=== PATIENT | male | born 1950 | race Caucasian/White ===

== ENCOUNTER → 2017-02-07 | Outpatient (CLI) | payer OTHER ==
[~2017-02-07] MED LIST: ACET-1256 PO; AMLO-110 PO; FAMO20TA11 PO; IBUP-1050 PO; LPR25 PO; LVQ750 PO; TAMS0.4C38 PO; ZCR20 PO
[2017-02-07 12:26] LABS: ALT/SGPT 32 U/L (12-78); BLOOD UREA NITROGEN 18 mg/dl (7-18); BUN/CREATININE RATIO 13.9 (10-20); CALCIUM 9.1 mg/dl (8.5-10.1); CARBON DIOXIDE 27 mmol/L (21-32); CHLORIDE 105 mmol/L (98-107); CHOLESTEROL 130 mg/dl (0-200); GLUCOSE 97 mg/dl (70-99); POTASSIUM 3.8 mmol/L (3.5-5.1); SODIUM 140 mmol/L (136-145); TRIGLYCERIDES 108 mg/dl (0-150); VERY LOW DENSITY LIPOPROT CALC 22 mg/dl
[2017-02-07 12:30] LABS: ALB/GLOB RATIO 1.1 (0.9-2); ALKALINE PHOSPHATASE 87 U/L (45-117); AST/SGOT 27 U/L (15-37); CHOLESTEROL/HDL RATIO 3.4; HDL CHOLESTEROL 38 mg/dl; LDL CHOLESTEROL CALCULATED 70 mg/dl
--- NOTE | 2017-02-18 11:25 | CODING QUERY MEDICAL NECESSITY ---
CQSUPPORTING DIAGNOSIS NEEDED A supporting diagnosis is required for the test/procedure performed on this patient in order for us to be reimbursed by the patient's insurance. Please provide a supporting diagnosis for the following test/procedure listed below next to the test name along with your signature. *If there is no additional diagnosis for this patient that would support the following test/procedure please document that below next to the test/procedure. Test(s)/Procedure(s) that require a supporting diagnosis: DOS 02/07/17 VITAMIN B12 TEST Provider Signature: Date: Thank you Paulette Valdes Health Information Management Once completed, please kindly fax back to [phone] For questions please call [phone]
== END | disposition home or self-care (01) ==
LOC: C.LAB 10:03
PROVIDERS: ATTEND Internal Medicine
DX: E78.5 Hyperlipidemia, unspecified (principal); F48.2 Pseudobulbar affect; N40.1 Benign prostatic hyperplasia with lower urinary tract symptoms

== ENCOUNTER 2018-10-02 09:11 | Inpatient (IN) ==
[2018-10-02] MEDS ORDERED: CEFEPIME 2,000 MG/12.5 ML VIAL IV STA (09:33)
--- NOTE | 2018-10-02 11:46 | Ultrasound Report ---
US venous doppler LE LT CLINICAL HISTORY: LLE swelling, ulceration, erythema COMPARISON STUDY: No previous studies for comparison. FINDINGS: Real-time and color flow Doppler imaging were performed. Flow was seen within the femoral, popliteal and calf veins with no intraluminal thrombus demonstrated. The saphenous vein is patent. Th e study was difficult from a technical standpoint as the patient was unable to cooperate with optimal positioning. The posterior tibial vein was not visualized. IMPRESSION: No evidence of left lower extremity DVT. Electronically signed by: Luke Contreras M.D. 10/02/2018 11:44 AM
[2018-10-02 12:26] LABS: Basophils # (auto) 0.03 K/uL (0-0.2); Basophils % (auto) 0.2 %; Eosinophils # (auto) 0.27 K/uL (0-0.5); Eosinophils % (auto) 1.4 %; Hematocrit (blood only) 41.6 % (42-52); Hemoglobin 14.6 g/dL (14.0-18.0); Immature Granulocytes # (auto) 0.06 K/uL (0.00-0.02); Immature Granulocytes % (auto) 0.3 %; Lymphocytes # (auto) 1.06 K/uL (1.2-3.4); Lymphocytes % (auto) 5.6 %; Mean Corpuscular Hgb Conc 35.1 g/dL (32-36); Mean Corpuscular Volume 93.3 fL (80-100); Mean Platelet Volume 10.9 fL (7.4-10.4); Monocytes # (auto) 0.95 K/uL (0.11-0.59); Neutrophils # (auto) 16.61 K/uL (1.4-6.5); Neutrophils % (auto) 87.5 %; Platelet Count 223 K/uL (130-400); RDW Coefficient of Variation 13.4 % (11.5-14.5); RDW Standard Deviation 45.6 fL (36.4-46.3); Red Blood Count 4.46 M/uL (4.7-6.1); White Blood Count 18.98 K/uL (4.8-10.8)
[2018-10-02 12:42] LABS: BUN Creatinine Ratio 26.1 (10-20); Calcium 9.6 mg/dl (8.5-10.1); Creatinine Clr Calc Pharmacy 92.8 ml/min; Est GFR (African American) 93.2; Est GFR (Non-African American) 80.5; Potassium 3.9 mmol/L (3.5-5.1)
[2018-10-02 12:45] LABS: Albumin Globulin Ratio 0.7 (0.9-2); Bilirubin,Total 0.4 mg/dl (0.2-1); Globulin 4.4 gm/dl (2.5-4.0); Total Protein 7.4 gm/dl (6.4-8.2)
--- NOTE | 2018-10-02 13:33 | History & Physical Report ---
Date of Service October 02, 2018 Assessment & Plan (1) Cellulitis: Failure of outpt abx management (clindamycin, augmentin) Cefepime in the ED, will continue Blood cx pending, may need to expand coverage if not improved by tomorrow LE US neg for DVT Elevated WBC Hx of SIRS several years ago with cellulitis, however VSS and WBC is not as elevated as would be expected in SIRS Lactic acid WNL Monitor for now [facility] pending Torsemide was helping as outpt, will dose lasix 20mg IV x1 and monitor, repeat if needed May need further eval for arterial insufficiency (2) HTN (hypertension): continue home meds (3) Aneurysm: Hold on rx DVT proph given hx of hemhorragic CVA (4) BPH (benign prostatic hyperplasia): continue home meds (5) Elevated blood sugar: Monitor States has had mild elevations around 103-105 fasting, but no dx of DM (6) DVT prophylaxis: Ambulation Holding rx DVT proph as above History of Present Illness Primary Care Provider: Kirk Stein MD 67 y/o M c/o b/l LE pain, redness, and swelling. Pt states this started in July and was gradually worsening until he saw his PCP in early September. He was dx with cellulitis and started on clindamycin TID. He was also started on torsemide temporarily for LE swelling and fluid drainage from the wounds. He states that the swelling and drainage improved quickly. He lost about 7 lbs during that time. The redness did improve somewhat, but not much. He was later placed on augmentin. He finished abx and torsemide about 2 days ago and has had an increase in b/l LE pain, redness, and swelling with drainage since that time. He also notes a burning sensation to b/l LE. PCP had set up an appt with [facility], but the earliest available was 10/06. Pt states he had LE cellulitis about 5 years ago and ultimately ended up with SIRS. He states he does not feel like that at this time, and other than his LE complaints, he feels fine. Pt denies fever, SOB, chest pain, abd pain, n/v/c/d. He has been tolerating PO without i ssue. Seizure was listed on pt's PMH, however he denies hx of seizures or use of seizure medications Allergies Allergy/AdvReac Type Severity Reaction Status Date / Time No Known Allergies Allergy Unknown Verified 10/02/18 10:06 Home Medications Home Medications Medication Instructions Recorded Confirmed Type acetaminophen [Tylenol Extra 500 mg PO BID 10/02/18 10/02/18 History Strength] amlodipine 5 mg PO QAM 10/02/18 10/02/18 History amoxicillin-pot clavulanate 1 tab PO BIDM 10/02/18 10/02/18 History clindamycin HCl 300 mg PO TID 10/02/18 10/02/18 History finasteride 5 mg PO HS 10/02/18 10/02/18 History ibuprofen 200 mg PO BID 10/02/18 10/02/18 History metoprolol tartrate 25 mg PO BID 10/02/18 10/02/18 History simvastatin 20 mg PO HS 10/02/18 10/02/18 History tamsulosin 0.4 mg PO QAM 10/02/18 10/02/18 History torsemide 20 mg PO UD 10/02/18 10/02/18 History Past Med/Surg History Medical History HTN, goal to be determined Leukocytosis Family History Father , Cause of was never determined, possibly [place] No problems noted. Social History Preferred Language: Upper Sorbian Communication Ability: Effective Beliefs That Will Affect Care: None Current Living Situation: Spouse Other Information That Helps Us Care for You: No Feels Safe at Home: Yes Safety Concerns: Feels Safe At This Time Smoking Status: Never smoker Hx Alcohol Use: No Hx Substance Use: No Review of Systems Review of Systems: Pertinent positives and negatives reviewed in HPI--all others negative Physical Exam Constitutional: WD/WN, vitals as above Eyes: normal visual vásquez by confrontation and + anicteric sclerae Neck: normal visual inspection and trachea midline Respiratory: normal respiratory effort, lungs clear to auscultation Cardiovascular: Rate/Rhythm: regular rate and regular rhythm Gastrointestinal (Abdomen): Inspection/Auscultation: abdomen not distended Percussion/Palpation: abdomen soft; abdomen nontender Musculoskeletal: Head/Neck/Chest: normocephalic and head atraumatic b/l LE edema with weeping ulcerations, peripheral pulses intact Skin: redness to around infrapatellar region, marker placed by myself in the ED Warm to touch Several regions of ulcerations noted Neurologic: awake; not confused Speech / Cognition: normal speech Psychiatric: A+Ox3, euthymic affect Results & Data Vital Signs (Past 12 Hours) Vital Signs Temp Pulse Pulse Resp BP BP Pulse Ox 10/02/18 11:30 78 18 142/79 H 98 10/02/18 09:14 36.8 C 70 18 139/81 97 Diagnostic Findings b/l LE US neg for DVT Code Status & VTE Plan Code Status Full code per pt VTE Prophylaxis Plan VTE Prophylaxis will be ordered: Yes
--- NOTE | 2018-10-02 14:42 | Emergency Department Note ---
Entered by Gallo Yee acting as a scribe for History of Present Illness General Chief complaint: Leg Injury/Pain Stated complaint: LEG AND FOOT PAIN Source: patient Mode of arrival: ambulatory History of Present Illness Provider complaint: Leg Injury/Pain Onset (ago): day(s) 1 Location: lower extremity Pain Consistency: + constant Maximum Pain Intensity: 6 Current Pain Intensity: 6 Associated symptoms: no fever/chills Patient is a 67 year old male who presents himself to the ER with complaint of leg swelling, redness and drainage that has been an issue for sometime, but worsening yesterday. Patient states he was tx with a course of antibiotics and referred to the wound care clinic. Today he felt that it was needed to come to the ER to get his leg examined. He rates his constant pain at a value of 6 on the pain intensity scale. Patient denies fevers and chills. Home Medications Home Medications Medication Instructions Recorded Confirmed Type acetaminophen [Tylenol Extra 500 mg PO BID 10/02/18 10/02/18 History Strength] amlodipine 5 mg PO QAM 10/02/18 10/02/18 History amoxicillin-pot clavulanate 1 tab PO BIDM 10/02/18 10/02/18 History clindamycin HCl 300 mg PO TID 10/02/18 10/02/18 History finasteride 5 mg PO HS 10/02/18 10/02/18 History ibuprofen 200 mg PO BID 10/02/18 10/02/18 History metoprolol tartrate 25 mg PO BID 10/02/18 10/02/18 History simvastatin 20 mg PO HS 10/02/18 10/02/18 History tamsulosin 0.4 mg PO QAM 10/02/18 10/02/18 History torsemide 20 mg PO UD 10/02/18 10/02/18 History Allergies Allergy/AdvReac Type Severity Reaction Status Date / Time No Known Allergies Allergy Unknown Verified 10/02/18 10:06 Past Med/Surg History Medical History HTN, goal to be determined Leukocytosis Social History Preferred Language: Pashto Communication Ability: Effective Beliefs That Will Affect Care: None Current Living Situation: Spouse Other Information That Helps Us Care for You: No Feels Safe at Home: Yes Safety Concerns: Feels Safe At This Time Smoking Status: Never smoker Hx Alcohol Use: No Hx Substance Use: No Review of Systems See HPI for pertinent positives & negatives. and A total of 10 systems reviewed and were otherwise negative Physical Exam Vital Signs Vital Signs - 24 hr 10/04/18 21:00 10/04/18 23:00 10/05/18 07:45 Temperature 37 C 36.8 C Temperature Source Oral Oral Pulse Rate [Left] 83 75 Pulse Rate [Right Brachial] Pulse Rate [Right Finger] 69 Respiratory Rate 20 18 Blood Pressure [Right Arm] 155/82 H 130/81 149/87 H Blood Pressure Mean [Right Arm] 106 97 107 Blood Pressure Position [Right Arm] Lying Sitting Pulse Oximetry 93 94 Oxygen Delivery Method Room Air Room Air 10/05/18 15:00 Temperature 36.8 C Temperature Source Oral Pulse Rate [Left] Pulse Rate [Right Brachial] 73 Pulse Rate [Right Finger] Respiratory Rate 18 Blood Pressure [Right Arm] 149/81 H Blood Pressure Mean [Right Arm] 103 Blood Pressure Position [Right Arm] Sitting Pulse Oximetry 97 Oxygen Delivery Method Room Air Vital signs reviewed. General: Well-appearing 67 year old male, in no significant distress. HEENT: No scleral icterus, PERRLA, neck supple. Atraumatic. Cardiovascular: Regular rate and rhythm, no extra sounds. Pulmonary: Clear to auscultation bilaterally, normal work of breathing. Abdomen: Soft, nontender, nondistended, positive bowel sounds. Musculoskeletal: Atraumatic, significant peripheral edema. Neurologic: Patient awake alert and oriented x 3 Skin: Warm, dry, Erythema left greater than right lower extremity, debris in the ulcerations of the lower extremities, extensive erythema through left foot, warm to touch, bilateral legs are seeping, serous fluid. Course 09: Past medical records reviewed. The patient was evaluated in room B04B. A complete history and physical examination was performed. 1250: I went to update the patient that they will be admitted to Dr[facility]. Patient has verbalized agreement of the treatment plan. Consultations Consultation #1: Dr[facility] Time: 12:50 Administered Medications Acetaminophen (Tylenol) 500 mg PO BID NEGAR Stop: 11/01/18 20:59 Last Admin: 10/05/18 09:07 Dose: 500 mg Documented by: [id number] Admin: 10/04/18 20:39 Dose: 500 mg Documented by: [id number] Admin: 10/04/18 07:48 Dose: 500 mg Documented by: [id number] Admin: 10/03/18 21:08 Dose: 500 mg Documented by: [id number] Admin: 10/03/18 08:00 Dose: 500 mg Documented by: [id number] Admin: 10/02/18 20:05 Dose: 500 mg Documented by: [id number] Acetaminophen (Tylenol) 650 mg PO Q4H PRN PRN Reason: pain/fever Stop: 11/01/18 15:11 Last Admin: 10/04/18 16:20 Dose: 650 mg Documented by: [id number] Admin: 10/03/18 06:03 Dose: 650 mg Documented by: [id number] Admin: 10/03/18 01:54 Dose: 650 mg Documented by: [id number] Admin: 10/02/18 22:01 Dose: 650 mg Documented by: [id number] Admin: 10/02/18 16:31 Dose: 650 mg Documented by: [id number] [facility] [place]: 11/02/18 08:59 Last Admin: 10/05/18 09:02 Dose: 5 mg Documented by: [id number] Admin: 10/04/18 07:47 Dose: 5 mg Documented by: [id number] Admin: 10/03/18 08:00 Dose: 5 mg Documented by: [id number] Finasteride (Proscar) 5 mg PO HS [facility] Stop: 11/01/18 20:59 Last Admin: 10/04/18 20:41 Dose: 5 mg Documented by: [id number] Admin: 10/03/18 21:08 Dose: 5 mg Documented by: [id number] Admin: 10/02/18 20:06 Dose: 5 mg Documented by: [id number] Cefepime HCl 2,000 mg/ Syringe 20 mls @ 5.5 mls/min IV Q12H NEGAR; Protocol Stop: 10/12/18 21:59 Last Admin: 10/05/18 09:07 Dose: 5.5 mls/min Documented by: [id number] Admin: 10/04/18 22:13 Dose: 5.5 mls/min Documented by: [id number] Admin: 10/04/18 11:03 Dose: 5.5 mls/min Documented by: [id number] Admin: 10/03/18 22:19 Dose: 5.5 mls/min Documented by: [id number] Admin: 10/03/18 10:12 Dose: 5.5 mls/min Documented by: [id number] Admin: 10/02/18 22:01 Dose: 5.5 mls/min Documented by: [id number] Ibuprofen (Advil) 200 mg PO BID NEGAR Stop: 11/01/18 20:59 Last Admin: 10/05/18 09:02 Dose: 200 mg Documented by: [id number] Admin: 10/04/18 20:41 Dose: 200 mg Documented by: [id number] Admin: 10/04/18 07:46 Dose: 200 mg Documented by: [id number] Admin: 10/03/18 21:07 Dose: 200 mg Documented by: [id number] Admin: 10/03/18 07:58 Dose: 200 mg Documented by: [id number] Admin: 10/02/18 20:06 Dose: 200 mg Documented by: [id number] Lactobacillus Acidophilus (Floranex) 4 tab PO TIDM NEGAR Stop: 11/01/18 16:59 Last Admin: 10/05/18 16:55 Dose: 4 tab Documented by: [id number] Admin: 10/05/18 11:47 Dose: 4 tab Documented by: [id number] Admin: 10/05/18 07:56 Dose: 4 tab Documented by: [id number] Admin: 10/04/18 17:21 Dose: 4 tab Documented by: [id number] Admin: 10/04/18 12:24 Dose: 4 tab Documented by: [id number] Admin: 10/04/18 07:46 Dose: 4 tab Documented by: [id number] Admin: 10/03/18 16:21 Dose: 4 tab Documented by: [id number] Admin: 10/03/18 12:25 Dose: 4 tab Documented by: [id number] Admin: 10/03/18 07:59 Dose: 4 tab Documented by: [id number] Admin: 10/02/18 17:13 Dose: 4 tab Documented by: [id number] Metoprolol Tartrate (Lopressor) 25 mg PO BID NEGAR Stop: 11/01/18 20:59 Last Admin: 10/05/18 09:02 Dose: 25 mg Documented by: [id number] Admin: 10/04/18 20:40 Dose: 25 mg Documented by: [id number] Admin: 10/04/18 07:47 Dose: 25 mg Documented by: [id number] Admin: 10/03/18 21:08 Dose: 25 mg Documented by: [id number] Admin: 10/03/18 07:58 Dose: 25 mg Documented by: [id number] Admin: 10/02/18 20:07 Dose: 25 mg Documented by: [id number] Simvastatin (Zocor) 20 mg PO HS NEGAR Stop: 11/01/18 20:59 Last Admin: 10/04/18 20:40 Dose: 20 mg Documented by: [id number] Admin: 10/03/18 21:07 Dose: 20 mg Documented by: [id number] Admin: 10/02/18 20:05 Dose: 20 mg Documented by: [id number] Tamsulosin HCl [facility]omax) [facility] [place]: 11/02/18 08:59 Last Admin: 10/05/18 09:01 Dose: 0.4 mg Documented by: [id number] Admin: 10/04/18 07:47 Dose: 0.4 mg Documented by: [id number] Admin: 10/03/18 07:59 Dose: 0.4 mg Documented by: [id number] [facility] ([facility]adex) [facility] [place] Stop: 11/04/18 11:59 Last Admin: 10/05/18 12:46 Dose: 20 mg Documented by: [id number] Tramadol HCl (Ultram) 50 mg PO Q4H PRN PRN Reason: Pain Stop: 11/02/18 10:38 Last Admin: 10/05/18 11:46 Dose: 50 mg Documented by: [id number] Admin: 10/04/18 22:20 Dose: 50 mg Documented by: [id number] Admin: 10/04/18 11:04 Dose: 50 mg Documented by: [id number] Admin: 10/03/18 20:20 Dose: 50 mg Documented by: [id number] Discontinued Medications Cefepime HCl (Maxipime) 2,000 mg in 12.5 mls @ 3.125 mls/min IV NOW STA Stop: 10/02/18 09:36 Last Admin: 10/02/18 10:32 Dose: 3.125 mls/min Documented by: [id number] Furosemide 20 mg/ Syringe 2 mls @ 4 mls/min IV ONE ONE Stop: 10/02/18 15:31 Last Admin: 10/02/18 16:11 Dose: 4 mls/min Documented by: [id number] Tramadol HCl (Ultram) 50 mg PO NOW STA Stop: 10/03/18 10:41 Last Admin: 10/03/18 10:57 Dose: 50 mg Documented by: [id number] Medical Decision Making Differential Diagnosis Differential diagnosis: Etiologies such as cellulitis, abscess, osteomyelitis, MRSA infection, DVT, necrotizing fasciitis, dermatitis, drug eruption, as well as others were entertained. Medical Records Attestation: I reviewed the patient's medical records. Home Medications Current Medication List: was personally reviewed by me Laboratory Data Attestation: I reviewed the patient's lab results. Result diagrams: 10/05/18 05:56 10/05/18 05:56 Lab Results 10/02/18 10/02/18 10/02/18 Range/Units 10:15 12:17 12:17 WBC 18.98 H (4.8-10.8) K/uL RBC 4.46 L (4.7-6.1) M/uL Hgb 14.6 (14.0-18.0) g/dL Hct 41.6 L (42-52) % MCV 93.3 (80-100) fL MCH 32.7 (25-34) pg MCHC 35.1 (32-36) g/dL RDW Std Deviation 45.6 (36.4-46.3) fL RDW Coeff of Mesfin 13.4 (11.5-14.5) % Plt Count 223 (130-400) K/uL MPV 10.9 H (7.4-10.4) fL Immature Gran % (Auto) 0.3 % Neut % (Auto) 87.5 % Lymph % (Auto) 5.6 % Borden % (Auto) 5.0 % Eos % (Auto) 1.4 % Baso % (Auto) 0.2 % Immature Gran # (Auto) 0.06 H (0.00-0.02) K/uL Neut # (Auto) 16.61 H (1.4-6.5) K/uL Lymph # (Auto) 1.06 L (1.2-3.4) K/uL Borden # (Auto) 0.95 H (0.11-0.59) K/uL Eos # (Auto) 0.27 (0-0.5) K/uL Baso # (Auto) 0.03 (0-0.2) K/uL Sodium 140 (136-145) mmol/L Potassium 3.9 (3.5-5.1) mmol/L Chloride 108 H (98-107) mmol/L Carbon Dioxide 26 (21-32) mmol/L Anion Gap 6.0 (3-11) BUN 25 H (7-18) mg/dl Creatinine 0.97 (0.6-1.4) mg/dl Est Cr Clr Drug Dosing 92.8 ml/min Est GFR ( Amer) 93.2 Est GFR (Non-Af Amer) 80.5 BUN/Creatinine Ratio 26.1 H (10-20) Glucose 115 H (70-99) mg/dl POC Glucose (70-99) Lactate 1.3 (0.4-2.0) mmol/L Calcium 9.6 (8.5-10.1) mg/dl Phosphorus (2.5-4.9) mg/dl Magnesium (1.8-2.4) mg/dl Total Bilirubin 0.4 (0.2-1) mg/dl AST 32 (15-37) U/L ALT 67 (12-78) U/L Alkaline Phosphatase 91 (45-117) U/L Total Protein 7.4 (6.4-8.2) gm/dl Albumin 3.0 L (3.4-5.0) gm/dl Globulin 4.4 H (2.5-4.0) gm/dl Albumin/Globulin Ratio 0.7 L (0.9-2) Specimen Hemolysis 10/03/18 10/03/18 10/04/18 Range/Units 05:22 05:22 19:58 WBC 11.48 H (4.8-10.8) K/uL RBC 4.31 L (4.7-6.1) M/uL Hgb 13.9 L (14.0-18.0) g/dL Hct 39.9 L (42-52) % MCV 92.6 (80-100) fL MCH 32.3 (25-34) pg MCHC 34.8 (32-36) g/dL RDW Std Deviation 44.8 (36.4-46.3) fL RDW Coeff of Mesfin 13.2 (11.5-14.5) % Plt Count 221 (130-400) K/uL MPV 11.2 H (7.4-10.4) fL Immature Gran % (Auto) 0.2 % Neut % (Auto) 79.0 % Lymph % (Auto) 11.9 % Borden % (Auto) 7.6 % Eos % (Auto) 1.1 % Baso % (Auto) 0.2 % Immature Gran # (Auto) 0.02 (0.00-0.02) K/uL Neut # (Auto) 9.07 H (1.4-6.5) K/uL Lymph # (Auto) 1.37 (1.2-3.4) K/uL Borden # (Auto) 0.87 H (0.11-0.59) K/uL Eos # (Auto) 0.13 (0-0.5) K/uL Baso # (Auto) 0.02 (0-0.2) K/uL Sodium (136-145) mmol/L Potassium (3.5-5.1) mmol/L Chloride (98-107) mmol/L Carbon Dioxide (21-32) mmol/L Anion Gap (3-11) BUN (7-18) mg/dl Creatinine (0.6-1.4) mg/dl Est Cr Clr Drug Dosing ml/min Est GFR ( Amer) Est GFR (Non-Af Amer) BUN/Creatinine Ratio (10-20) Glucose (70-99) mg/dl POC Glucose 116 H (70-99) Lactate (0.4-2.0) mmol/L Calcium (8.5-10.1) mg/dl Phosphorus 2.7 (2.5-4.9) mg/dl Magnesium 1.9 (1.8-2.4) mg/dl Total Bilirubin (0.2-1) mg/dl AST (15-37) U/L ALT (12-78) U/L Alkaline Phosphatase (45-117) U/L Total Protein (6.4-8.2) gm/dl Albumin (3.4-5.0) gm/dl Globulin (2.5-4.0) gm/dl Albumin/Globulin Ratio (0.9-2) Specimen Hemolysis 10/05/18 10/05/18 Range/Units 05:56 05:56 WBC 10.19 (4.8-10.8) K/uL RBC 4.44 L (4.7-6.1) M/uL Hgb 14.5 (14.0-18.0) g/dL Hct 41.2 L (42-52) % MCV 92.8 (80-100) fL MCH 32.7 (25-34) pg MCHC 35.2 (32-36) g/dL RDW Std Deviation 44.6 (36.4-46.3) fL RDW Coeff of Mesfin 13.1 (11.5-14.5) % Plt Count 252 (130-400) K/uL MPV 10.8 H (7.4-10.4) fL Immature Gran % (Auto) % Neut % (Auto) % Lymph % (Auto) % Borden % (Auto) % Eos % (Auto) % Baso % (Auto) % Immature Gran # (Auto) (0.00-0.02) K/uL Neut # (Auto) (1.4-6.5) K/uL Lymph # (Auto) (1.2-3.4) K/uL Borden # (Auto) (0.11-0.59) K/uL Eos # (Auto) (0-0.5) K/uL Baso # (Auto) (0-0.2) K/uL Sodium 132 L (136-145) mmol/L Potassium 4.2 (3.5-5.1) mmol/L Chloride 103 (98-107) mmol/L Carbon Dioxide 23 (21-32) mmol/L Anion Gap 6.0 (3-11) BUN 35 H (7-18) mg/dl Creatinine 1.03 (0.6-1.4) mg/dl Est Cr Clr Drug Dosing 87.4 ml/min Est GFR ( Amer) 86.7 Est GFR (Non-Af Amer) 74.8 BUN/Creatinine Ratio 34.0 H (10-20) Glucose 102 H (70-99) mg/dl POC Glucose (70-99) Lactate (0.4-2.0) mmol/L Calcium 9.3 (8.5-10.1) mg/dl Phosphorus (2.5-4.9) mg/dl Magnesium (1.8-2.4) mg/dl Total Bilirubin (0.2-1) mg/dl AST (15-37) U/L ALT (12-78) U/L Alkaline Phosphatase (45-117) U/L Total Protein (6.4-8.2) gm/dl Albumin (3.4-5.0) gm/dl Globulin (2.5-4.0) gm/dl Albumin/Globulin Ratio (0.9-2) Specimen Hemolysis Imaging Data Attestation: I personally reviewed and interpreted this imaging study as follows: Radiologist's Impression: Radiology results as stated below per my review and the radiologist's interpretation: US venous doppler LE LT CLINICAL HISTORY: LLE swelling, ulceration, erythema COMPARISON STUDY: No previous studies for comparison. FINDINGS: Real-time and color flow Doppler imaging were performed. Flow was seen within the femoral, popliteal and calf veins with no intraluminal thrombus demonstrated. The saphenous vein is patent. The study was difficult from a technical standpoint as the patient was unable to cooperate with optimal positioning. The posterior tibial vein was not visualized. IMPRESSION: No evidence of left lower extremity DVT. Electronically signed by: Luke Contreras M.D. 10/02/2018 11:44 AM Dictated: 10/02/18 1143 Transcribed: 10/02/18 1143 Blood Pressure Blood Pressure Findings: Elevated blood pressure Blood Pressure Disposition: further management by hospitalist MDM Narrative This pt was evaluated and appeared to be in no distress. IV access was obtained and lab work was drawn. Pt was placed on the food runner. US LLE is negative for DVT. Pt was given cefepime IV for pseudomonas coverage. Nursing was asked to cleanse the wounds. Pt was d/w the hospitalist service for inpt tx of LLE cellulitis. Pt and were made aware of the plan and agree. Impression & Plan Cellulitis of left leg, Dependent edema Discharge Plan Visit Data *Final* Discharge Date/Time: 10/02/18 14:39 Chief Complaint: Leg Injury/Pain Stated Complaint: LEG AND FOOT PAIN ED Provider: Karon Ruffin Discharge Problem: Cellulitis of left leg, Dependent edema Patient Disposition: Admitted As Inpatient Discharge Instructions Interventions: ED Discharge Assessment Last Done: 10/02/18 14:39 The scribe's documentation has been prepared under my direction and personally reviewed by me in its entirety. I confirm that the note above accurately reflects all work, treatment, procedures, and medical decision making performed by me.
[2018-10-02] MEDS ORDERED: MAGNESIUM HYDROXIDE SUSP 30 ML UDC PO PRN (15:12)
[2018-10-02] MEDS ORDERED: NON-FORMULARY MEDICATION (Torsemide 20 MG) PO SCH (15:12)
[2018-10-02] MEDS ORDERED: ONDANSETRON INJ 2 MG/ML 2 ML VIAL IV PRN (15:12)
[2018-10-02] MEDS ORDERED: FUROSEMIDE 20 MG in SYRINGE 0 ML IV ONE (15:30)
[2018-10-02] MEDS: ACETAMINOPHEN 325 MG TAB PO PRN ×2 (16:31→22:01)
[2018-10-02] MEDS: LACTOBACILLUS ACIDOPHILUS (FLORANEX) TAB PO SCH (17:13)
[2018-10-02] MEDS: SIMVASTATIN 20 MG TAB PO SCH (20:05)
[2018-10-02] MEDS: ACETAMINOPHEN 500 MG TAB PO SCH (20:05)
[2018-10-02] MEDS: FINASTERIDE 5 MG TAB PO SCH (20:06)
[2018-10-02] MEDS: IBUPROFEN 200 MG TAB PO SCH (20:06)
[2018-10-02] MEDS: METOPROLOL TARTRATE 25 MG TAB PO SCH (20:07)
[2018-10-02] MEDS: CEFEPIME 2,000 MG in SYRINGE 7.5 ML IV SCH (22:01)
[2018-10-03] MEDS: ACETAMINOPHEN 325 MG TAB PO PRN ×2 (01:54→06:03)
[2018-10-03 05:54] LABS: Basophils # (auto) 0.02 K/uL (0-0.2); Basophils % (auto) 0.2 %; Eosinophils # (auto) 0.13 K/uL (0-0.5); Eosinophils % (auto) 1.1 %; Hematocrit (blood only) 39.9 % (42-52); Hemoglobin 13.9 g/dL (14.0-18.0); Immature Granulocytes # (auto) 0.02 K/uL (0.00-0.02); Immature Granulocytes % (auto) 0.2 %; Lymphocytes # (auto) 1.37 K/uL (1.2-3.4); Lymphocytes % (auto) 11.9 %; Mean Corpuscular Hgb Conc 34.8 g/dL (32-36); Mean Corpuscular Volume 92.6 fL (80-100); Mean Platelet Volume 11.2 fL (7.4-10.4); Monocytes # (auto) 0.87 K/uL (0.11-0.59); Monocytes % (auto) 7.6 %; Neutrophils # (auto) 9.07 K/uL (1.4-6.5); Platelet Count 221 K/uL (130-400); RDW Coefficient of Variation 13.2 % (11.5-14.5); RDW Standard Deviation 44.8 fL (36.4-46.3); Red Blood Count 4.31 M/uL (4.7-6.1); White Blood Count 11.48 K/uL (4.8-10.8)
[2018-10-03 06:29] LABS: Magnesium 1.9 mg/dl (1.8-2.4); Phosphorus 2.7 mg/dl (2.5-4.9)
[2018-10-03] MEDS: IBUPROFEN 200 MG TAB PO SCH ×2 (07:58→21:07)
[2018-10-03] MEDS: METOPROLOL TARTRATE 25 MG TAB PO SCH ×2 (07:58→21:08)
[2018-10-03] MEDS: LACTOBACILLUS ACIDOPHILUS (FLORANEX) TAB PO SCH ×3 (07:59→16:21)
[2018-10-03] MEDS: TAMSULOSIN HCL 0.4 MG CAP PO SCH (07:59)
[2018-10-03] MEDS: AMLODIPINE BESYLATE 5 MG TAB PO SCH (08:00)
[2018-10-03] MEDS: ACETAMINOPHEN 500 MG TAB PO SCH ×2 (08:00→21:08)
[2018-10-03] MEDS: CEFEPIME 2,000 MG in SYRINGE 7.5 ML IV SCH ×2 (10:12→22:19)
[2018-10-03] MEDS ORDERED: TRAMADOL HCL 50 MG TABLET PO STA (10:40)
[2018-10-03] MEDS: TRAMADOL HCL 50 MG TABLET PO PRN (20:20)
[2018-10-03] MEDS: SIMVASTATIN 20 MG TAB PO SCH (21:07)
[2018-10-03] MEDS: FINASTERIDE 5 MG TAB PO SCH (21:08)
--- NOTE | 2018-10-03 21:56 | Hospitalist Progress Note ---
Date of Service October 03, 2018 Assessment & Plan (1) Cellulitis: Failure of outpt abx management (clindamycin, augmentin) Cefepime in the ED, will continue Blood cx pending, As antibiotics appear to be working, will continue on current antibiotic regimen. LE US neg for DVT WBC remains elevated Hx of SIRS several years ago with cellulitis, however VSS and WBC is not as elevated as would be expected in SIRS Lactic acid WNL WCC pending Torsemide was helping as outpt, received lasix 20mg IV x1 and monitor. Will hold off repeat dose today. May need further eval for arterial insufficiency. ay consider this as an outpatient. (2) HTN (hypertension): continue home meds (3) Aneurysm: Hold on rx DVT proph given hx of hemhorragic CVA (4) BPH (benign prostatic hyperplasia): continue home meds (5) Elevated blood sugar: Monitor States has had mild elevations around 103-105 fasting, but no dx of DM. May consider workup as outpatient. (6) DVT prophylaxis: Ambulation Holding rx DVT proph as above Spent 25 minutes in management of patient. Subjective Patient reports no significant changes from yesterday. Patient continues to be having pain in his lower extremites, but reports that the pain is milder. Review of Systems Review of Systems: All systems reviewed & are unremarkable except as noted in HPI & below Physical Exam Physical Exam: Constitutional: WD/WN, vitals as above Eyes: normal visual vásquez by confrontation and + anicteric sclerae Neck: normal visual inspection and trachea midline Respiratory: normal respiratory effort, lungs clear to auscultation Cardiovascular: Rate/Rhythm: regular rate and regular rhythm Gastrointestinal (Abdomen): Inspection/Auscultation: abdomen not distended Percussion/Palpation: abdomen soft; abdomen nontender Musculoskeletal: Head/Neck/Chest: normocephalic and head atraumatic b/l LE edema with weeping ulcerations, peripheral pulses intact Skin: decreased redness noted today, marker placed by myself in the room Warm to touch Neurologic: awake; not confused Speech / Cognition: normal speech Psychiatric: A+Ox3, euthymic affect Results & Data Vital Signs (Past 12 Hours) Vital Signs Temp Pulse Resp BP Pulse Ox 10/03/18 21:02 111 H 145/89 H 10/03/18 15:02 36.7 C 75 20 151/83 H 96
[2018-10-04] MEDS: LACTOBACILLUS ACIDOPHILUS (FLORANEX) TAB PO SCH ×3 (07:46→17:21)
[2018-10-04] MEDS: IBUPROFEN 200 MG TAB PO SCH ×2 (07:46→20:41)
[2018-10-04] MEDS: METOPROLOL TARTRATE 25 MG TAB PO SCH ×2 (07:47→20:40)
[2018-10-04] MEDS: AMLODIPINE BESYLATE 5 MG TAB PO SCH (07:47)
[2018-10-04] MEDS: TAMSULOSIN HCL 0.4 MG CAP PO SCH (07:47)
[2018-10-04] MEDS: ACETAMINOPHEN 500 MG TAB PO SCH ×2 (07:48→20:39)
[2018-10-04] MEDS: CEFEPIME 2,000 MG in SYRINGE 7.5 ML IV SCH ×2 (11:03→22:13)
[2018-10-04] MEDS: TRAMADOL HCL 50 MG TABLET PO PRN ×2 (11:04→22:20)
[2018-10-04] MEDS: ACETAMINOPHEN 325 MG TAB PO PRN (16:20)
--- NOTE | 2018-10-04 17:58 | Hospitalist Progress Note ---
Date of Service October 04, 2018 Assessment & Plan (1) Cellulitis: Failure of outpt abx management (clindamycin, augmentin) Cefepime in the ED, will continue Blood cx preliminary negative As antibiotics appear to be working, will continue on current antibiotic regimen. LE US neg for DVT WBC remains elevated but improved from 18 to 11. Did not order CBC on 10/04. Will order in AM. Anticipate this to be normal Lactic acid WNL WCC pending: SHOWING 2 gram negative bacilli and M morganii. The sensitivities are pending on 2 gram negative bacilli. M morganii is sensitive to cephalosporin. Torsemide was helping as outpt, received lasix 20mg IV x1 and monitor. Will hold off repeat dose today. May need further eval for arterial insufficiency. may consider this as an outpatient. (2) HTN (hypertension): continue home meds (3) Aneurysm: Hold on rx DVT proph given hx of hemhorragic CVA (4) BPH (benign prostatic hyperplasia): continue home meds (5) Elevated blood sugar: Monitor States has had mild elevations around 103-105 fasting, but no dx of DM. May consider workup as outpatient. will order A1C in AM. (6) DVT prophylaxis: Ambulation Holding rx DVT proph as above Spent 25 minutes in management of patient. Subjective Patient was found ambulating the halls. Patient reports no significant pain. Patient reports that his legs continue to be swollen and his dressing get damp in the evening. Review of Systems Review of Systems: All systems reviewed & are unremarkable except as noted in HPI & below Physical Exam Physical Exam: Constitutional: WD/WN, vitals as above Eyes: normal visual vásquez by confrontation and + anicteric sclerae Neck: normal visual inspection and trachea midline Respiratory: normal respiratory effort, lungs clear to auscultation Cardiovascular: Rate/Rhythm: regular rate and regular rhythm Gastrointestinal (Abdomen): Inspection/Auscultation: abdomen not distended Percussion/Palpation: abdomen soft; abdomen nontender Musculoskeletal: Head/Neck/Chest: normocephalic and head atraumatic b/l LE edema with weeping ulcerations, peripheral pulses intact Skin: receding erythema noted, erythema was demarcated by marker. Warm to touch, mutiple superfical lesions noted on lower third of bilateral legs. Neurologic: awake; not confused Speech / Cognition: normal speech Psychiatric: A+Ox3, euthymic affect Results & Data Vital Signs (Past 12 Hours) Vital Signs Temp Pulse Resp BP Pulse Ox 10/04/18 15:05 36.5 C 74 18 158/83 H 97 10/04/18 07:19 37 C 75 18 128/76 96
[2018-10-04] MEDS: SIMVASTATIN 20 MG TAB PO SCH (20:40)
[2018-10-04] MEDS: FINASTERIDE 5 MG TAB PO SCH (20:41)
[2018-10-05 06:35] LABS: Hematocrit (blood only) 41.2 % (42-52); Hemoglobin 14.5 g/dL (14.0-18.0); Mean Corpuscular Hgb Conc 35.2 g/dL (32-36); Mean Corpuscular Volume 92.8 fL (80-100); Mean Platelet Volume 10.8 fL (7.4-10.4); Platelet Count 252 K/uL (130-400); RDW Coefficient of Variation 13.1 % (11.5-14.5); RDW Standard Deviation 44.6 fL (36.4-46.3); Red Blood Count 4.44 M/uL (4.7-6.1); White Blood Count 10.19 K/uL (4.8-10.8)
[2018-10-05 07:24] LABS: Calcium 9.3 mg/dl (8.5-10.1); Creatinine Clr Calc Pharmacy 87.4 ml/min; Est GFR (African American) 86.7; Est GFR (Non-African American) 74.8; Potassium 4.2 mmol/L (3.5-5.1)
[2018-10-05] MEDS: LACTOBACILLUS ACIDOPHILUS (FLORANEX) TAB PO SCH ×3 (07:56→16:55)
[2018-10-05] MEDS: TAMSULOSIN HCL 0.4 MG CAP PO SCH (09:01)
[2018-10-05] MEDS: AMLODIPINE BESYLATE 5 MG TAB PO SCH (09:02)
[2018-10-05] MEDS: IBUPROFEN 200 MG TAB PO SCH ×2 (09:02→20:07)
[2018-10-05] MEDS: METOPROLOL TARTRATE 25 MG TAB PO SCH ×2 (09:02→20:05)
[2018-10-05] MEDS: CEFEPIME 2,000 MG in SYRINGE 7.5 ML IV SCH ×2 (09:07→22:16)
[2018-10-05] MEDS: ACETAMINOPHEN 500 MG TAB PO SCH ×2 (09:07→20:06)
[2018-10-05] MEDS: TRAMADOL HCL 50 MG TABLET PO PRN ×2 (11:46→21:06)
--- NOTE | 2018-10-05 11:50 | Hospitalist Progress Note ---
Date of Service October 05, 2018 Assessment & Plan (1) Cellulitis: Failure of outpt abx management (clindamycin, augmentin) Cefepime in the ED, will continue Blood cx preliminary negative As antibiotics appear to be working, will continue on current antibiotic regimen. LE US neg for DVT WBC remains elevated but improved from 18 to 11. Did not order CBC on 10/04. Will order in AM. Anticipate this to be normal Lactic acid WNL WCC pending: SHOWING 2 gram negative bacilli and M morganii. The sensitivities are pending on 2 gram negative bacilli. M morganii is sensitive to cephalosporin. Torsemide was helping as outpt, received lasix 20mg IV x1 and monitor. Resumed torsemide on 10/05 May need further eval for arterial insufficiency. may consider this as an outpatient. (2) HTN (hypertension): continue home meds. B/P is above gaol. Will monitor, may improve with diuretic. (3) Aneurysm: Hold on rx DVT proph given hx of hemhorragic CVA (4) BPH (benign prostatic hyperplasia): continue home meds (5) Elevated blood sugar: Monitor States has had mild elevations around 103-105 fasting, but no dx of DM. May consider workup as outpatient. Awaiting A1C. (6) DVT prophylaxis: Ambulation Holding rx DVT proph as above Spent 35 minutes in management of patient. Was present during dressing changes. Subjective Patient reports no new complaints today. Continues to have swelling and mild to moderate pain in his lower extremities. He states that he has been taking tramadol Review of Systems Review of Systems: All systems reviewed & are unremarkable except as noted in HPI & below Physical Exam Physical Exam: Constitutional: WD/WN, vitals as above Eyes: normal visual vásquez by confrontation and + anicteric sclerae Neck: normal visual inspection and trachea midline Respiratory: normal respiratory effort, lungs clear to auscultation Cardiovascular: Rate/Rhythm: regular rate and regular rhythm Gastrointestinal (Abdomen): Inspection/Auscultation: abdomen not distended Percussion/Palpation: abdomen soft; abdomen nontender Musculoskeletal: Head/Neck/Chest: normocephalic and head atraumatic b/l LE edema with weeping ulcerations, peripheral pulses intact Skin: receding erythema noted, erythema was demarcated by marker. Usd blue marker on (10/05) Warm to touch, mutiple superfical lesions noted on lower third of bilateral legs. Neurologic: awake; not confused Speech / Cognition: normal speech Psychiatric: A+Ox3, euthymic affect Results & Data Vital Signs (Past 12 Hours) Vital Signs Temp Pulse Resp BP Pulse Ox 10/05/18 07:45 36.8 C 69 18 149/87 H 94
[2018-10-05] MEDS: TORSEMIDE 10 MG TAB PO SCH (12:46)
[2018-10-05] MEDS: SIMVASTATIN 20 MG TAB PO SCH (20:06)
[2018-10-05] MEDS: FINASTERIDE 5 MG TAB PO SCH (20:08)
[2018-10-05] MEDS: ACETAMINOPHEN 325 MG TAB PO PRN (22:40)
[2018-10-06 06:09] LABS: Estimated Average Glucose 140 mg/dl; Hemoglobin A1C 6.5 % (4.5-5.6)
[2018-10-06] MEDS: METOPROLOL TARTRATE 25 MG TAB PO SCH ×2 (08:17→21:51)
[2018-10-06] MEDS: AMLODIPINE BESYLATE 5 MG TAB PO SCH (08:17)
[2018-10-06] MEDS: TAMSULOSIN HCL 0.4 MG CAP PO SCH (08:18)
[2018-10-06] MEDS: ACETAMINOPHEN 500 MG TAB PO SCH ×2 (08:18→21:50)
[2018-10-06] MEDS: LACTOBACILLUS ACIDOPHILUS (FLORANEX) TAB PO SCH ×3 (08:18→16:43)
[2018-10-06] MEDS: IBUPROFEN 200 MG TAB PO SCH ×2 (08:18→21:53)
[2018-10-06] MEDS: TORSEMIDE 10 MG TAB PO SCH (08:18)
[2018-10-06] MEDS: ACETAMINOPHEN 325 MG TAB PO PRN ×2 (10:39→16:42)
[2018-10-06] MEDS: CEFEPIME 2,000 MG in SYRINGE 7.5 ML IV SCH (10:49)
--- NOTE | 2018-10-06 15:19 | Hospitalist Progress Note ---
Date of Service October 06, 2018 Assessment & Plan (1) Cellulitis: Failed outpt abx management (clindamycin, augmentin). Some concern for LLE DVT, but ultrasound (Doppler) was negative on 10/02. - Was on cefepime since admission. - Switched to Bactrim on 10/06 for superficial wound cultures - Monitor site; if still improving by tomorrow, consider discharge with outpatient follow up of legs. (2) HTN (hypertension): BP has been 120/80 to 150/90. - Continue home meds. (3) Aneurysm: Hold on rx DVT proph given hx of hemhorragic CVA (4) BPH (benign prostatic hyperplasia): No complaints of LUTS presently. - Continue home meds (5) Elevated blood sugar: A1c is 6.5%, making him diabetic. He states he has had mild elevations around 103-105 fasting, but no dx of DM. - Consider workup as outpatient. (6) DVT prophylaxis: Ambulation Holding rx DVT proph as above Subjective Feels he is doing better this morning. Leg is less red. Blistering has stopped. Drainage from wounds is still present and active. Reports no fevers/chills, chest pain, shortness of breath, abdominal pain, nausea, or vomiting. Review of Systems Integumentary: + lesions Physical Exam Constitutional: WD/WN, vitals as above Eyes: normal visual vásquez by confrontation and + anicteric sclerae Neck: normal visual inspection and trachea midline Respiratory: normal respiratory effort, lungs clear to auscultation Cardiovascular: Rate/Rhythm: regular rate and regular rhythm Gastrointestinal (Abdomen): Inspection/Auscultation: abdomen not distended Percussion/Palpation: abdomen soft; abdomen nontender Musculoskeletal: Head/Neck/Chest: normocephalic and head atraumatic Neurologic: awake; not confused Speech / Cognition: normal speech Psychiatric: A+Ox3, euthymic affect Results & Data Vital Signs (Past 12 Hours) Vital Signs Temp Pulse Resp BP Pulse Ox 10/06/18 07:25 36.4 C L 61 16 149/89 H 96
--- OUTSIDE RECORDS SUMMARY | 2018-10-06 21:07 | External Medical Summary | Continuity of Care Document ---
:1950 Author Name Claudia Cohen, Provider Address Unavailable Unavailable , Care Team Providers Name Role Phone Unavailable Unavailable Unavailable Kirk Stein M.D. Unavailable [email or web address] [place] [email or web address], [email or web address] Kirk Stein M.D. 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 JUAN Erazo Start: 23-Sep-2018 Quantity: 14 Refills: 0 Famotidine 20 MG Oral Tablet; Take 1 tablet twice a day Vicki Abel Start: 10-Nov-2016 Quantity: 180 Refills: 3 Metoprolol Tartrate 25 MG Oral Tablet; TAKE 1 TABLET B Y MOUTH TWO TIMES DAILY JUAN Cowan Start: 10-Dec-2017 Quantity: 180 Refills: 3 Ibuprofen 200 MG Oral Tablet; Take 1 tablet twice daily Terence Start: 25-Jan-2017 Refills: 0 Tamsulosin HCl - 0.4 MG Oral Capsule; TAKE 1 CAPSULE B Y MOUTH EVERY DAY Vicki Stein Start: 07-Aug-2018 Quantity: 90 Refills: 3 Finasteride 5 MG Oral Tablet; TAKE 1 TABLET BY MOUTH E VERY DAY DIRECTED Vicki Stein Start: 03-Aug-2018 Quantity: 30 Refills: 5 amLODIPine Besylate 5 MG Oral Tablet; Take 1 tablet daily Vicki Vleoz Start: 14-Aug-2018 Quantity: 90 Refills: 3 Simvastatin 20 MG Oral Tablet; TAKE 1 TABLET BY MOUTH AT BEDTIME JUAN Erazo Start: 02-Oct-2018 Quantity: 90 Refills: 3 Procedures Basic Metabolic Panel Date: 23-Sep-2018 Immunizations Immunizations not documented Social History - Smoking Status Never smoker Plan of Treatment Planned Observations Planned Goals not documented Results Total PSA Laboratory: [facility] Laboratory [address] [employer] [facility]. [facility] [address] tel: 17-Sep-2018 13:07 PROSTATE SPECIFIC ANTIGEN 1.960 Range: 0-4 ng/ml ng/ml Comments: Postprosta tectomy reference range <0.2 ng/mlThe testing method is a chemiluminescent immunoassaymanufactured by [employer] and performed on the Apsalar.Values obtained with different assay methods or kits may bedifferent and cannot be used interchangeably.Test results cannot be interpreted as absolute evidence forthe presence or absence of malignant disease. Basic Metabolic Panel Laboratory: [facility] Laboratory [address] [employer] [facility]. [facility] [address] tel: 22-Sep-2018 11:27 SODIUM 136 mmol/L Range: 136-145 mmol /L POTASSIUM 3.5 mmol/L Range: 3.5-5.1 mmo l/L CHLORIDE 100 mmol/L Range: 98-107 mmol/ L CARBON DIOXIDE 31 mmol/L Range: 21-32 m mol/L ANION GAP 5.0 Range: 3-11 BLOOD UREA NITROGEN 35 mg/dl Range: 7-1 8 mg/dl (above high threshold) CREATININE 1.43 mg/dl (above Range: 0.6 -1.4 mg/dl high threshold) Estimated GFR ( Comments: Units: ml/min per 1.73 Citizen [place]) 58.3 meters squaredThe es timated GFR (CKD-EPI equation) h as not been validatedfor inpatie nt settings and may not be an ac curate reflectionof renal f unction in critically ill patie nts or those withrapidly changing renal function (e.g. MANDA). Estimated GFR (Non- Comments: Uni ts: ml/min per 1.73 Citizen [place]) 50.3 meters squaredThe es timated GFR (CKD-EPI equation) h as not been validatedfor inpatie nt settings and may not be an ac curate reflectionof renal f unction in critically ill patie nts or those withrapidly changing renal function (e.g. MANDA). BUN/CREATININE RATIO 24.2 Range: 10-20 (above high threshold) GLUCOSE 105 mg/dl (above high Range: 70 -99 mg/dl threshold) CALCIUM 9.1 mg/dl Range: 8.5-10.1 mg/ dl Ultra TSH Laboratory: [facility] Laboratory [address] [facility]. [facility] [address] tel: 22-Sep-2018 11:27 TSH 3.500 {uIu/ml} Range: 0.300-4.500 uIu/ml Comments: The refere nce range for TSH is 0.3-4.5 uIU/ml.Some have suggested that TSH levels >2.5 uIU/ml should beconsidered abnormal, particularly in potentially symptomaticyounger individuals.TSH levels in he althy elderly (>75 y ears of age) are oftenat or even above the reference range.Normal first trimester TSH <2.0 uIU/ml.Normal second and third trimester TSH <3.0 uIU/ml.TSH 0.5-2.0 uIU/ml is oft en considered the op timaltherapeutic target for replacement treatment ofhypothyroidism. Ultrasound Venous Laboratory: [facility] Diagnostic Doppler Lwr Ext Unil Imaging [address] [facility] (Pending) [facility] 02-Oct-2018 11:43 US VENOUS UNIL LWR EXT DOPPLER [facility] [place] [place] [phone] Ultrasound Report Patient: JERMAIN GRAY JR Admit Date: MR#: [id number] Address1: [address] [place] [address] Acct ID:[id number] Address2: Date: [address] [place] [address] Zip: [place] [address] Age: 67 Location: ED Sex: M Room/Bed: Att Phy: Diagnosis: LEG AND FOOT PAIN Nel Phy: Kirk Stein MD Service Date: [facility] Phy: Interpreting Phy: Luke Contreras MD Admit Phy: Ordering Phy: Karon Ruffin M.D. cc: US venous doppler LE LT CLINICAL HISTORY: LLE swelling, ulceration, erythema COMPARISON STUDY: No previous studies for comparison. FINDINGS: Real-time and color flow Doppler imaging were performed. Flow was seen within the femoral, popliteal and calf veins with no intraluminal thrombus demonstrated. The saphenous vein is patent. The study was difficult from a technical standpoint as the patient was unable to cooperate with optimal positioning. The posterior tibial vein was not visualized. IMPRESSION: No evidence of left lower extremity DVT. Electronically signed by: Luke Contreras M.D. 10/02/2018 11:44 AM Dictated: 10/02/18 1143 Transcribed: 10/02/18 1143 Vital Signs 23-Sep-2018 14:28 Systolic 143 mm[Hg] Comments: Location: LUE; Position: Sitting Diastolic 79 mm[Hg] Comments: Location: LUE; Position: Sitting Respiration 16 /min Comments: Quality: N ormal Heart Rate 83 /min Height 66 in Temperature 98.6 f Comments: Method: Or al BMI Calculated 41.51 kg/m2 Weight 257.1875 lb O2 Saturation 95 % Comments: Source: RA BSA Calculated 2.23 m2 16-Sep-2018 15:31 Systolic 141 mm[Hg] Comments: Location: RUE; Position: Sitting Diastolic 88 mm[Hg] Comments: Location: RUE; Position: Sitting Heart Rate 80 /min Height 66 in Temperature 98 f Comments: Method: Or al BMI Calculated 42.67 kg/m2 Weight 264.375 lb O2 Saturation 95 % Comments: Source: RA BSA Calculated 2.25 m2 Encounters Appointment; Addis Erazo PA-C 23-Sep-2018 14:30 Encounter Diagnosis: Problem not documented Appointment; Addis Erazo PA-C 16-Sep-2018 15:30 Encounter Diagnosis: Problem not documented Appointment; Kirk Stein M.D. 04-Mar-2018 15:00 Encounter Diagnosis: Problem not documented Appointment; Kirk Stein M.D. 23-Aug-2017 14:30 Encounter Diagnosis: Problem not documented Appointment; Kirk Stein M.D. 25-Jan-2017 14:45 Encounter Diagnosis: Problem not documented
[2018-10-06] MEDS: SULFAMETHOXAZOLE/TRIMETHOPRIM DS 800/160MG TAB PO SCH (21:49)
[2018-10-06] MEDS: SIMVASTATIN 20 MG TAB PO SCH (21:51)
[2018-10-06] MEDS: FINASTERIDE 5 MG TAB PO SCH (21:52)
[2018-10-07] MEDS: ACETAMINOPHEN 325 MG TAB PO PRN ×2 (02:03→15:12)
[2018-10-07 06:42] LABS: Hematocrit (blood only) 42.8 % (42-52); Hemoglobin 15.7 g/dL (14.0-18.0); Mean Corpuscular Hgb Conc 36.7 g/dL (32-36); Mean Corpuscular Volume 91.8 fL (80-100); Mean Platelet Volume 10.9 fL (7.4-10.4); Platelet Count 305 K/uL (130-400); RDW Coefficient of Variation 13.1 % (11.5-14.5); RDW Standard Deviation 43.8 fL (36.4-46.3); Red Blood Count 4.66 M/uL (4.7-6.1); White Blood Count 10.68 K/uL (4.8-10.8)
[2018-10-07 07:16] LABS: BUN Creatinine Ratio 33.9 (10-20); Calcium 9.5 mg/dl (8.5-10.1); Creatinine Clr Calc Pharmacy 69.2 ml/min; Est GFR (African American) 65.4; Est GFR (Non-African American) 56.5; Magnesium 2.3 mg/dl (1.8-2.4); Potassium 3.9 mmol/L (3.5-5.1)
[2018-10-07] MEDS: TORSEMIDE 10 MG TAB PO SCH (08:09)
[2018-10-07] MEDS: AMLODIPINE BESYLATE 5 MG TAB PO SCH (08:09)
[2018-10-07] MEDS: METOPROLOL TARTRATE 25 MG TAB PO SCH (08:09)
[2018-10-07] MEDS: LACTOBACILLUS ACIDOPHILUS (FLORANEX) TAB PO SCH ×2 (08:09→11:28)
[2018-10-07] MEDS: TAMSULOSIN HCL 0.4 MG CAP PO SCH (08:10)
[2018-10-07] MEDS: IBUPROFEN 200 MG TAB PO SCH (08:10)
[2018-10-07] MEDS: ACETAMINOPHEN 500 MG TAB PO SCH (08:10)
[2018-10-07] MEDS: SULFAMETHOXAZOLE/TRIMETHOPRIM DS 800/160MG TAB PO SCH (08:10)
--- NOTE | 2018-10-07 16:14 | Discharge Summary ---
Date of Service October 07, 2018 Admission HPI Per Admitting Provider 67 y/o M c/o b/l LE pain, redness, and swelling. Pt states this started in July and was gradually worsening until he saw his PCP in early September. He was dx with cellulitis and started on clindamycin TID. He was also started on torsemide temporarily for LE swelling and fluid drainage from the wounds. He states that the swelling and drainage improved quickly. He lost about 7 lbs during that time. The redness did improve somewhat, but not much. He was later placed on augmentin. He finished abx and torsemide about 2 days ago and has had an increase in b/l LE pain, redness, and swelling with drainage since that time. He also notes a burning sensation to b/l LE. PCP had set up an appt with [facility], but the earliest available was 10/06. Pt states he had LE cellulitis about 5 years ago and ultimately ended up with SIRS. He states he does not feel like that at this time, and other than his LE complaints, he feels fine. Pt denies fever, SOB, chest pain, abd pain, n/v/c/d. He has been tolerating PO without is rohit. Seizure was listed on pt's PMH, however he denies hx of seizures or use of seizure medications Principal Diagnosis Cellulitis Discharge Exam Constitutional WD/WN, vitals as above Eyes normal visual vásquez by confrontation and + anicteric sclerae Neck normal visual inspection and trachea midline Respiratory normal respiratory effort, lungs clear to auscultation Cardiovascular Rate/Rhythm: regular rate and regular rhythm Gastrointestinal (Abdomen) Inspection/Auscultation: abdomen not distended Percussion/Palpation: abdomen soft; abdomen nontender Musculoskeletal Head/Neck/Chest: normocephalic and head atraumatic Neurologic awake; not confused Speech / Cognition: normal speech Psychiatric A+Ox3, euthymic affect Discharge Data Allergies Allergy/AdvReac Type Severity Reaction Status Date / Time No Known Allergies Allergy Unknown Verified 10/02/18 10:06 Consultations 10/02/18 13:14 ED Decision to Admit Stat 10/02/18 15:12 Consult Case Management - Discharge Planning Routine Ordered Studies 10/02/18 09:33 US venous doppler LE LT Stat Hospital Course (1) Cellulitis: Failed outpt abx management (clindamycin, Augmentin). Some concern for LLE DVT, but ultrasound (Doppler) was negative on 10/02. - Was on cefepime at admission. - Switched to Bactrim on 10/06 for superficial wound cultures - On 10/07, he was seen by myself, wound RN, and bedside RN. Lower extremity edema is improving. Erythema almost resolved. Still has some drainage, but i mproved even within last 24 hours. Long discussion with him and his about appropriate follow up and dressing changes. - Will follow up with Dr. Stein, get home health for dressing changes, and also follow up with [facility] as early as able. Appointments scheduled. (2) HTN (hypertension): BP has been 120/80 to 150/90. - Continued home meds. (3) Aneurysm: Hold on rx DVT proph given hx of hemhorragic CVA (4) BPH (benign prostatic hyperplasia): No complaints of LUTS presently. - Continued home meds (5) Elevated blood sugar: A1c is 6.5%, making him diabetic. He states he has had mild elevations around 103-105 fasting, but no dx of DM. - Will need to discuss with Dr. Stein re: DM care plan. (6) DVT prophylaxis: Ambulation Holding rx DVT proph as above Total Time Total Time Spent Total Time Spent (In Minutes): 55 Total Time Includes: Examination of the Patient, Discharge Planning, Medication Reconciliation and Communication With Other Providers Discharge Plan Discharge Items Patient Disposition: Home - Home Health Services Reason For Visit: CELLULITIS Discharge Diagnosis: Cellulitis Discharge Goals: Decrease discomfort, Diagnostic testing and Improve disease control Activity: Resume your previous activity Non-emergency contact: Primary Care Provider Call non-emergency contact if: your symptoms worsen, your pain is not controlled and your temperature is above 100.5 Follow-up/Referrals: [facility] [Outside] - 10/15/18 1:00 pm (Please, follow up at [facility] on SaturdayOctober 15 at 1:00 pm. *If you need to change this appointment, call the office at [phone]. THIS WAS THE 1ST AVAILABLE APPOINTMENT. IF SOMETHING SOONER BECOMES AVAILABLE, THEY WILL CALL YOU.) Kirk Stein MD [Primary Care Provider] - 10/14/18 3:30 pm (Please, follow up with Dr. Kirk Stein on SaturdayOctober 14 at 3:30 pm. *If you need to change this appointment, call the office at [phone].) Diet: Regular Addtl Provider Instructions: Mr. Gee, You were admitted for cellulitis on your legs. This is from bacteria getting under the skin, probably through the breaks in the skin on your legs. We are treating you with an antibiotic that will help kill the bacteria we cultured. You will need to do continued dressing changes with the home health team and also see the [facility] to help prevent further infections as this resolves. I also started you on a low-dose of gabapentin to help with the neuropathic pain from the legs. It is a low-dose, so you and Dr. Stein can discuss adjustments if it helps, but you are still having pain. Take it two times per day (morning and night). It may make you sleepy, so take the first dose tonight and do not drink any alcohol with it. Please also discuss with Dr. Stein whether to switch your blood pressure medication as amlodipine (Norvasc) can sometimes cause some leg swelling. Prescriptions: New sulfamethoxazole-trimethoprim [Bactrim DS] 800-160 mg tablet 1 tab PO BID 10 Days Qty: 20 RF: 0 gabapentin 100 mg capsule 100 mg PO BID Qty: 30 RF: 0 Continued clindamycin HCl 300 mg capsule 300 mg PO TID RF: 0 amlodipine 5 mg tablet 5 mg PO QAM RF: 0 acetaminophen [Tylenol Extra Strength] 500 mg Tablet 500 mg PO BID RF: 0 tamsulosin 0.4 mg capsule 0.4 mg PO QAM RF: 0 simvastatin 20 mg tablet 20 mg PO HS RF: 0 ibuprofen 200 mg Tablet 200 mg PO BID RF: 0 finasteride 5 mg tablet 5 mg PO HS RF: 0 amoxicillin-pot clavulanate 875-125 mg tablet 1 tab PO BIDM RF: 0 metoprolol tartrate 25 mg tablet 25 mg PO BID RF: 0 Changed torsemide 20 mg tablet 20 mg PO DAILY Qty: 0 RF: 0 Stand-Alone Forms: My [facility]/Other Patient Handouts: Prediabetes, Diabetes Type 2 Coping, Diabetes Meal Planning Discharge Orders: Discharge Order (Routine); Ordered 10/07/18 Ordered By: Mina Ribera Admission Data Admit Date/Time: 10/02/18 12:50 Attending Provider: Mina Ribera Admit Provider: Fatou Jones Primary Care Provider: Kirk Stein Other Providers: Fatou Jones Service: Medical Other Interventions: Discharge Summary Assessment (RN) Last Done: 10/07/18 14:27
== END 2018-10-07 16:10 | disposition home health service (06) | DRG 603 ==
LOC: ED 09:11 → 4E 12:50 → SUATTDRO 12:50 → 4E 14:39

== ENCOUNTER 2018-10-15 14:43 | Inpatient (IN) ==
[2018-10-15] MEDS ORDERED: SODIUM CHLORIDE 0.9% 250 ML IV PRN ×2 (15:17→16:11)
[2018-10-15] MEDS ORDERED: FAMOTIDINE 20MG/5ML IV PUSH IV STA (15:19)
[2018-10-15] MEDS ORDERED: SODIUM CHLORIDE 0.9% 500 ML IV STA (15:19)
[2018-10-15 15:51] LABS: Basophils # (auto) 0.07 K/uL (0-0.2); Basophils % (auto) 0.5 %; Eosinophils # (auto) 0.01 K/uL (0-0.5); Eosinophils % (auto) 0.1 %; Hematocrit (blood only) 21.5 % (42-52); Hemoglobin 7.5 g/dL (14.0-18.0); Immature Granulocytes % (auto) 0.7 %; Lymphocytes # (auto) 1.97 K/uL (1.2-3.4); Lymphocytes % (auto) 13.6 %; Mean Corpuscular Hgb Conc 34.9 g/dL (32-36); Mean Platelet Volume 11.2 fL (7.4-10.4); Monocytes # (auto) 0.88 K/uL (0.11-0.59); Monocytes % (auto) 6.1 %; Neutrophils # (auto) 11.47 K/uL (1.4-6.5); Nucleated RBC # (auto) 0.14 K/uL (0-0); Platelet Count 272 K/uL (130-400); RDW Coefficient of Variation 14.4 % (11.5-14.5); RDW Standard Deviation 45.7 fL (36.4-46.3); Red Blood Count 2.24 M/uL (4.7-6.1)
--- NOTE | 2018-10-15 15:57 | XRay Report ---
XR chest 1V portable CLINICAL HISTORY: Chest Pain COMPARISON STUDY: Chest radiograph September 05, 2015. FINDINGS: There is no pneumothorax or pleural effusion. Appearance of the chest is unchanged. Mild ca rdiomegaly is stable. There is no evidence for pulmonary edema. IMPRESSION: No acute cardiopulmonary findings. No change in appearance of the chest. Electronically signed by: Gaudencio Duron M.D. 10/15/2018 3:56 PM
[2018-10-15 16:00] LABS: INR 1.1 (0.9-1.1); Prothrombin Time 11.3 Seconds (9.0-12.0)
[2018-10-15 16:13] LABS: Alanine Aminotransferase 34 U/L (12-78); Aspartate Aminotransferase 17 U/L (15-37); BUN Creatinine Ratio 40.8 (10-20); Bilirubin Direct 0.1 mg/dl (0-0.2); Blood Urea Nitrogen 46 mg/dl (7-18); Calcium 8.7 mg/dl (8.5-10.1); Carbon Dioxide 28 mmol/L (21-32); Chloride 106 mmol/L (98-107); Creatinine Clr Calc Pharmacy 77.7 ml/min; Est GFR (African American) 78.4; Est GFR (Non-African American) 67.6; Glucose 125 mg/dl (70-99); Magnesium 2.2 mg/dl (1.8-2.4); Potassium 4.5 mmol/L (3.5-5.1); Sodium 136 mmol/L (136-145)
[2018-10-15 16:16] LABS: Alkaline Phosphatase 56 U/L (45-117); Bilirubin,Total 0.4 mg/dl (0.2-1); Globulin 3.1 gm/dl (2.5-4.0); Phosphorus 2.1 mg/dl (2.5-4.9); Total Protein 6.1 gm/dl (6.4-8.2); Troponin I < 0.015 ng/ml (0-0.045)
[2018-10-15 16:29] LABS: Polychromasia 1+
[2018-10-15] MEDS ORDERED: IOVERSOL 100ml IV PRN (16:35)
--- NOTE | 2018-10-15 16:52 | CT Scan Report ---
CT SCAN OF THE ABDOMEN AND PELVIS WITH IV CONTRAST CLINICAL HISTORY: Generalized abdominal pain. Melanotic stool. Anemia. COMPARISON STUDY: No priors. TECHNIQUE: Following the IV administration of 94 cc of Optiray 320, CT scan of the abdomen and pelvi s is performed from the lung bases to the proximal femora. Images are reviewed in the axial, sagittal , and coronal planes. IV contrast was administered without complication. A dose lowering technique wa s utilized adhering to the principles of ALARA. CT DOSE: 1169.44 mGy.cm FINDINGS: Lung bases: The heart is mildly enlarged and without pericardial effusion. There are coronary artery calcifications. The lung bases are clear. There is a small hiatal hernia. Liver: The contrast-enhanced liver is normal in size, contour, and attenuation. There is no intrahepa tic biliary ductal dilatation. The hepatic veins and portal veins are patent. Gallbladder: Unremarkable. Spleen: Normal in size and attenuation. Pancreas: Unremarkable. Adrenal glands: Unremarkable. Kidneys: The contrast enhanced kidneys are normal in size and without hydronephrosis. Cortical scarri ng is noted in the lower pole of the right kidney. The kidneys enhance symmetrically. A 1.5 cm exophy tic cyst arises from the right kidney. There is a small nonobstructing left renal calculus. Abdominal vasculature: The abdominal aorta is normal in course and caliber noting moderate atheroscle rotic calcification. Bowel: The small bowel and colon are normal in course and caliber. The appendix is well-visualized a nd normal. Peritoneum: There is no intraperitoneal free air or abdominal ascites. There is a small fat-containin g umbilical hernia. Lymphadenopathy: None. Pelvic viscera: There is mild median lobe hypertrophy of the prostate gland. The bladder is mildly di stended but otherwise normal in appearance. There is a small fat-containing right inguinal hernia. Skeletal structures: The skeletal structures are osteopenic. A benign-appearing lucency is noted in the left iliac wing on image #331 measuring 1.6 cm. No lytic or blastic lesions are seen. There is a mild superior endplate compression deformity of L1. Moderate lumbosacral spondylosis is observed. Lar ge posterior disc osteophyte complexes are seen at L3-L4, L4-L5, and L5-S1. There are healed right pu bic ring fractures. Chronic posttraumatic deformity is also seen in the right sacrum. IMPRESSION: 1. There are no acute infectious or inflammatory findings in the abdomen or pelvis. 2. Mild cardiomegaly. 3. Additional findings as above. Electronically signed by: Scout Hutchison M.D. 10/15/2018 4:51 PM
[2018-10-15] MEDS ORDERED: PANTOprazole 80 MG in DEXTROSE 5% 100 ML IV STA (16:54)
[2018-10-15] MEDS ORDERED: PANTOprazole 40 MG in DEXTROSE 5% 100 ML IV SCH (17:00)
--- NOTE | 2018-10-15 19:39 | History & Physical Report ---
Date of Service October 15, 2018 Assessment & Plan (1) Upper GI bleed: 67 y/o m Hx HTN, HLD, BPH, ruptured brain aneurysm and craniotomy 2008, chronic LE edema and cellulitis. Recently admitted with BL cellulitis and DCd 10/07. The pt reports exertional dyspnea, lightheadedness and black pasty stools x 2 days. He denies CP, diarrhea, abdominal pain or vomiting, although he did have some nausea and dry heaving. An Hb on arrival to the ER was 7.5. His Hb on discharge 10/07 was 14.5. 1) GI bleed - NPO, PPi, PRBC - 2 units to start. GI consult requested. Hb is being trended. 2) HTN - will continue metoprolol with parameters - hemodynamically stable on admission 3) HDL - cont Statin 4) BPH - cont Flomax, Finasteride 5) Seizure disorder in records - states he has not had a seizure previously - he takes Gabapentin which we will continue Full code - No SCDs due to edema/LE pain - thigh SCDs Total time for this admit including review of labs, meds, imaging, records - discussion with pt and ER attending - 37 min History of Present Illness Chief Complaint: Black stool, lightheaded Primary Care Provider: Kirk Stein MD 67 y/o m Hx HTN, HLD, BPH, ruptured brain aneurysm and craniotomy 2008, chronic LE edema and cellulitis. Recently admitted with BL cellulitis and DCd 10/07. The pt reports exertional dyspnea, lightheadedness and black pasty stools x 2 days. He denies CP, diarrhea, abdominal pain or vomiting, although he did have some nausea and dry heaving. An Hb on arrival to the ER was 7.5. His Hb on discharge 10/07 was 14.5. PMH: 1) Ruptured brain aneurysm 2008 - craniotomy at [place] with lobotomy per pt. 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 Allergies Allergy/AdvReac Type Severity Reaction Status Date / Time No Known Allergies Allergy Unknown Verified 10/15/18 17:09 Home Medications Home Medications Medication Instructions Recorded Confirmed Type acetaminophen [Tylenol Extra 500 mg PO BID 10/02/18 10/15/18 History Strength] finasteride 5 mg PO HS 10/02/18 10/15/18 History metoprolol tartrate 25 mg PO BID 10/02/18 10/15/18 History simvastatin 20 mg PO HS 10/02/18 10/15/18 History gabapentin 100 mg PO BID #30 cap 10/07/18 10/15/18 Rx tamsulosin [Flomax] 0.4 mg PO QAM 10/15/18 10/15/18 History Past Med/Surg History Medical History Osteoarthritis (Chronic) Status post stroke (Resolved) HTN, goal to be determined Leukocytosis Surgical History S/P brain surgery (Resolved) Family History Father , Cause of was never determined, possibly [place] No problems noted. Social History Preferred Language: Micronesian Communication Ability: Effective Beliefs That Will Affect Care: None Current Living Situation: Spouse Feels Safe at Home: Yes Smoking Status: Never smoker Hx Alcohol Use: No Hx Substance Use: No Review of Systems Review of Systems: Gen: Denies fevers, night sweats, rigors, fatigue, malaise, weight loss/gain ENT: Denies congestion, throat pain, hearing loss Eyes: Denies acute visual changes CV: Denies CP, palpitations Pulmonary: Denies SOB, cough, wheezing GI: Nausea and black stools as above Neuro: Denies acute or unilateral weakness, acute gait impairment, headache or acute visual changes - described lightheadedness Musculoskeletal: Chronic pain of LEs - no joint pain Endocrine: Denies polydipsia, polyuria Skin: Denies acute rashes or ulcers - persistent mild cellulitis and edema of the LEs Physical Exam Physical Exam: General: Overweight, pale-appearing, middle-aged male, AAO x 3, no distress ENT: No erythema or exudates, no thrush Eyes: LINDEN, EOMI Head and neck: Normocephalic, atraumatic, No JVD, neck is supple. Chest/heart: Nontender, S1,2, RRR, no murmurs, no gallops Lungs: CTAB, no wheezing or crackles Abdomen: Nontender, nondistended, BS+ Neuro: AAO x 3, speech is clear, no unilateral weakness or loss of sensation, coordination intact Musculoskeletal: LE edema with tender pitting Skin: No acute rashes or ulcers - persistent LE erythema Extremities: No clubbing, cyanosis - +BL edema Results & Data Vital Signs (Past 12 Hours) Vital Signs Temp Pulse Pulse Resp BP BP Pulse Ox 10/15/18 19:30 98.2 F 82 18 119/70 98 10/15/18 19:29 82 18 10/15/18 18:30 98.6 F 95 H 16 106/62 98 10/15/18 18:00 98.4 F 97 H 16 99/63 L 100 10/15/18 17:59 94 H 16 99/63 L 100 10/15/18 17:45 98.4 F 95 H 16 103/60 100 10/15/18 17:27 97.3 F L 88 16 121/66 100 10/15/18 16:43 88 16 117/70 98 10/15/18 15:56 97 10/15/18 14:54 98.2 F 20 129/70 98
[2018-10-15] MEDS ORDERED: POTASSIUM PHOS 3 MMOL/1 ML INFUSION IV STA (19:56)
[2018-10-15] MEDS ORDERED: SODIUM CHLORIDE 0.9% 1000ML 1,000 ML IV SCH (20:00)
[2018-10-15] MEDS ORDERED: POTASSIUM PHOSPHATE 6 MMOL in 0.9 % SODIUM CHLORIDE 100 ML IV ONE (20:00)
[2018-10-15] MEDS ORDERED: ACETAMINOPHEN 325 MG TAB PO PRN (21:19)
[2018-10-15] MEDS ORDERED: ONDANSETRON INJ 2 MG/ML 2 ML VIAL IV PRN (21:19)
--- NOTE | 2018-10-15 22:05 | Emergency Department Note ---
Entered by Cornelio Carbajal acting as a scribe for Krish Gupta MD History of Present Illness General Chief complaint: Abnormal Labs/Diagnostic Testing Stated complaint: LOW BLOOD COUNT Time Seen by Provider: 10/15/18 14:58 Source: patient and old records reviewed History of Present Illness Onset (ago): day(s) (3-4) Location: head (global) Pain Consistency: + other (dark diarrhea persistent) Quality: + other (low hemoglobin) Associated symptoms: + weakness and + other (nausea) The patient is a 67 year old male who presents to the Emergency Room after referral for outpatient bloodwork yesterday showing low H&H. The patient states that he has had dark and pasty diarrhea for the past 3-4 days. He also reports persistent nausea and dry-heaving since his discharge from the hospital a week ago for cellulitis. He states that he was evaluated today by the wound clinic, and it was felt that his cellulitis appeared improved. He states that he always feels weak. He notes some indigestion for which he is taking TUMs. He notes that he has not taken Pepto-Bismol. He also reports a history of brain aneurysm. He notes that he is taking medication for an enlarged prostate but denies urinary symptoms. Home Medications Home Medications Medication Instructions Recorded Confirmed Type acetaminophen [Tylenol Extra 500 mg PO BID 10/02/18 10/15/18 History Strength] finasteride 5 mg PO HS 10/02/18 10/15/18 History metoprolol tartrate 25 mg PO BID 10/02/18 10/15/18 History simvastatin 20 mg PO HS 10/02/18 10/15/18 History gabapentin 100 mg PO BID #30 cap 10/07/18 10/15/18 Rx tamsulosin [Flomax] 0.4 mg PO QAM 10/15/18 10/15/18 History Allergies Allergy/AdvReac Type Severity Reaction Status Date / Time No Known Allergies Allergy Unknown Verified 10/15/18 17:09 Past Med/Surg History Medical History Osteoarthritis (Chronic) Status post stroke (Resolved) HTN, goal to be determined Leukocytosis Surgical History S/P brain surgery (Resolved) Family History Father , Cause of was never determined, possibly OR No problems noted. Social History Preferred Language: Afghan Communication Ability: Effective Sales Support Assistant Required: No Beliefs That Will Affect Care: None Current Living Situation: Spouse Other Information That Helps Us Care for You: No Feels Safe at Home: Yes Safety Concerns: Feels Safe At This Time Smoking Status: Never smoker Hx Alcohol Use: Yes Alcohol type: beer Hx Substance Use: No Review of Systems See HPI for pertinent positives & negatives. and A total of 10 systems reviewed and were otherwise negative Physical Exam Vital Signs Vital Signs - 24 hr 10/15/18 14:54 10/15/18 15:56 10/15/18 16:43 Temperature 36.8 C Temperature Source Oral Sepsis Recent Fever Within 48 Hours No Sepsis Action Taken by Nursing No Action Required Pulse Rate Pulse Rate [Apical] 88 Pulse Rhythm Regular Pulse Strength Normal Respiratory Rate 20 16 Respiratory Effort / Characteristics Non-Labored Respiratory Depth Normal Respiratory Pattern Blood Pressure 129/70 Blood Pressure [Left Arm] 117/70 Blood Pressure Mean 89 Blood Pressure Mean [Left Arm] 85 Blood Pressure Position Sitting Blood Pressure Position [Left Arm] Pulse Oximetry 98 97 98 Oxygen Delivery Method Room Air Room Air Room Air Oxygen Flow Rate 10/15/18 17:27 10/15/18 17:45 10/15/18 17:59 Temperature 36.3 C L 36.9 C Temperature Source Oral Oral Sepsis Recent Fever Within 48 Hours Sepsis Action Taken by Nursing Pulse Rate 88 95 H 94 H Pulse Rate [Apical] Pulse Rhythm Pulse Strength Respiratory Rate 16 16 16 Respiratory Effort / Characteristics Respiratory Depth Respiratory Pattern Blood Pressure 121/66 103/60 99/63 L Blood Pressure [Left Arm] Blood Pressure Mean 84 74 75 Blood Pressure Mean [Left Arm] Blood Pressure Position Blood Pressure Position [Left Arm] Pulse Oximetry 100 100 100 Oxygen Delivery Method Oxygen Flow Rate 0 10/15/18 18:00 10/15/18 18:30 10/15/18 19:29 Temperature 36.9 C 37 C Temperature Source Oral Oral Sepsis Recent Fever Within 48 Hours Sepsis Action Taken by Nursing Pulse Rate 97 H 95 H Pulse Rate [Apical] 82 Pulse Rhythm Pulse Strength Respiratory Rate 16 16 18 Respiratory Effort / Characteristics Respiratory Depth Normal Respiratory Pattern Blood Pressure 99/63 L 106/62 Blood Pressure [Left Arm] Blood Pressure Mean 75 76 Blood Pressure Mean [Left Arm] Blood Pressure Position Sitting Blood Pressure Position [Left Arm] Pulse Oximetry 100 98 Oxygen Delivery Method Oxygen Flow Rate 0 10/15/18 19:30 10/15/18 19:46 10/15/18 20:03 Temperature 36.8 C Temperature Source Oral Sepsis Recent Fever Within 48 Hours Sepsis Action Taken by Nursing Pulse Rate 82 83 82 Pulse Rate [Apical] Pulse Rhythm Pulse Strength Respiratory Rate 18 18 18 Respiratory Effort / Characteristics Respiratory Depth Respiratory Pattern Blood Pressure 119/70 121/67 119/69 Blood Pressure [Left Arm] Blood Pressure Mean 86 85 Blood Pressure Mean [Left Arm] Blood Pressure Position Blood Pressure Position [Left Arm] Pulse Oximetry 98 96 96 Oxygen Delivery Method Room Air Oxygen Flow Rate 10/15/18 21:00 10/15/18 22:00 10/15/18 22:15 Temperature 37.1 C 36.5 C 36.9 C Temperature Source Oral Oral Oral Sepsis Recent Fever Within 48 Hours Sepsis Action Taken by Nursing Pulse Rate 84 77 Pulse Rate [Apical] 90 Pulse Rhythm Pulse Strength Respiratory Rate 18 16 18 Respiratory Effort / Characteristics Non-Labored Spontaneous Respiratory Depth Normal Respiratory Pattern Regular Blood Pressure 134/78 142/74 H Blood Pressure [Left Arm] 122/69 Blood Pressure Mean 96 96 Blood Pressure Mean [Left Arm] 86 Blood Pressure Position Semi-fowlers Blood Pressure Position [Left Arm] Sitting Pulse Oximetry 98 98 95 Oxygen Delivery Method Room Air Oxygen Flow Rate 10/15/18 22:36 10/15/18 22:45 Temperature 36.7 C 36.7 C Temperature Source Oral Oral Sepsis Recent Fever Within 48 Hours Sepsis Action Taken by Nursing Pulse Rate 72 82 Pulse Rate [Apical] Pulse Rhythm Pulse Strength Respiratory Rate 19 14 Respiratory Effort / Characteristics Respiratory Depth Respiratory Pattern Blood Pressure 168/83 H 153/90 H Blood Pressure [Left Arm] Blood Pressure Mean 111 111 Blood Pressure Mean [Left Arm] Blood Pressure Position Lying Blood Pressure Position [Left Arm] Pulse Oximetry 94 96 Oxygen Delivery Method Oxygen Flow Rate GENERAL: Awake, alert, pale, fatigued-appearing, in no distress HENT: Normocephalic, atraumatic. Mucous membranes dry. EYES: Normal conjunctiva. Sclera non-icteric. NECK: Supple. No nuchal rigidity. FROM. No JVD. RESPIRATORY: Clear to auscultation bilaterally. CARDIAC: Regular rate, normal rhythm. Extremities warm and well perfused. Pulses equal. ABDOMEN: Soft, non-distended. No tenderness to palpation. No rebound or guarding . No masses. RECTAL: Gross melena, guaiac positive. MUSCULOSKELETAL: Chest examination reveals no tenderness. The back is symmetrical on inspection without obvious abnormality. There is no CVA tendern ess to palpation. No joint edema. LOWER EXTREMITIES: Calves are equal size bilaterally and non-tender. 2+ bilateral edema. Legs are wrapped with dressing that is clean and dry, placed today by the wound clinic. No discoloration. NEURO: Normal sensorium. No sensory or motor deficits noted. SKIN: No rash or jaundice noted. Course 1500: EMR reviewed. The patient was admitted from 10/02 to 10/07 for cellulitis. He was sent to the ER after outpatient labs showed hemoglobin of 8.1/23.7. A week prior on 10/07 his hemoglobin was 15.7/42.8. 1504: The patient was evaluated in room B10. A complete history and physical examination were performed. 1607: I updated the patient on results. 1648: I consulted Dr. Armaan SOLORIO. 1703: I consulted Dr. Vazquez [facility] Hospitalist. The patient will be reevaluated for hospitalization. Administered Medications Finasteride (Proscar) 5 mg PO HS NEGAR Stop: 11/14/18 21:18 Last Admin: 10/15/18 22:26 Dose: 5 mg Documented by: [id number] Gabapentin (Neurontin) 100 mg PO BID NEGAR Stop: 11/14/18 21:18 Last Admin: 10/15/18 22:26 Dose: 100 mg Documented by: [id number] Sodium Chloride (Nss 1000ml) 1,000 mls @ 80 mls/hr IV .[id number] NEGAR Stop: 10/16/18 08:29 Last Admin: 10/16/18 00:05 Dose: 80 mls/hr Documented by: [id number] Metoprolol Tartrate (Lopressor) 25 mg PO BID NEGAR Stop: 11/14/18 21:18 Last Admin: 10/15/18 22:26 Dose: 25 mg Documented by: [id number] Simvastatin (Zocor) 20 mg PO HS NEGAR Stop: 11/14/18 21:18 Last Admin: 10/15/18 22:26 Dose: 20 mg Documented by: [id number] Discontinued Medications Famotidine (Pepcid 20mg Iv Push) 20 mg IV ONE STA Stop: 10/15/18 15:20 Last Admin: 10/15/18 15:53 Dose: 20 mg Documented by: [id number] Sodium Chloride (Nss) 500 mls @ 125 mls/hr IV .Q4H STA Stop: 10/15/18 19:18 Last Admin: 10/15/18 15:53 Dose: 125 mls/hr Documented by: [id number] Pantoprazole Sodium 80 mg/ (Dextrose) 120 mls @ 480 mls/hr IV NOW STA Stop: 10/15/18 17:08 Last Infusion: 10/15/18 18:04 Dose: 0 mls/hr Documented by: [id number] Admin: 10/15/18 17:48 Dose: 480 mls/hr Documented by: [id number] Pantoprazole Sodium 40 mg/ (Dextrose) 100 mls @ 20 mls/hr IV Q5H NEGAR Stop: 11/14/18 16:59 Last Admin: 10/15/18 18:15 Dose: 20 mls/hr Documented by: [id number] Potassium Phosphate 6 mmol/ (Sodium Chloride) 102 mls @ 88 mls/hr IV ONE ONE Stop: 10/15/18 21:09 Last Infusion: 10/16/18 01:14 Dose: 0 mls/hr Documented by: [id number] Admin: 10/16/18 00:04 Dose: 88 mls/hr Documented by: [id number] Ioversol (Optiray 320 100ml) 94 ml IV ONCE PRN PRN Reason: Interaction Checking Stop: 10/19/18 16:34 Last Admin: 10/15/18 16:35 Dose: 94 ml Documented by: [id number] Medical Decision Making Differential Diagnosis Differential diagnosis includes: diverticulosis, AVM, coagulopathy, colitis, inflammatory bowel disease, malignancy, Jelena-Ruvalcaba tear, esophagitis, peptic ulcer disease, variceal bleed, gastritis, epistaxis, fissure, hemorrhoids, aswell as others were entertained. Medical Records Attestation: I reviewed the patient's medical records. Home Medications Current Medication List: was personally reviewed by me Laboratory Data Attestation: I reviewed the patient's lab results. Result diagrams: 10/16/18 00:44 10/15/18 15:36 Lab Results 10/15/18 10/15/18 10/15/18 Range/Units 15:36 15:36 15:36 WBC 14.50 H (4.8-10.8) K/uL RBC 2.24 L (4.7-6.1) M/uL Hgb 7.5 L (14.0-18.0) g/dL Hct 21.5 L (42-52) % MCV 96.0 (80-100) fL MCH 33.5 (25-34) pg MCHC 34.9 (32-36) g/dL RDW Std Deviation 45.7 (36.4-46.3) fL RDW Coeff of Mesfin 14.4 (11.5-14.5) % Plt Count 272 (130-400) K/uL MPV 11.2 H (7.4-10.4) fL Immature Gran % (Auto) 0.7 % Neut % (Auto) 79.0 % Lymph % (Auto) 13.6 % [place] % (Auto) 6.1 % Eos % (Auto) 0.1 % Baso % (Auto) 0.5 % Immature Gran # (Auto) 0.10 H (0.00-0.02) K/uL Neut # (Auto) 11.47 H (1.4-6.5) K/uL Lymph # (Auto) 1.97 (1.2-3.4) K/uL [place] # (Auto) 0.88 H (0.11-0.59) K/uL Eos # (Auto) 0.01 (0-0.5) K/uL Baso # (Auto) 0.07 (0-0.2) K/uL Absolute Nucleated RBC 0.14 H (0-0) K/uL Nucleated RBC % (auto) 1.0 % Polychromasia 1+ PT 11.3 (9.0-12.0) Seconds INR 1.1 (0.9-1.1) Sodium 136 (136-145) mmol/L Potassium 4.5 (3.5-5.1) mmol/L Chloride 106 (98-107) mmol/L Carbon Dioxide 28 (21-32) mmol/L Anion Gap 2.0 L (3-11) BUN 46 H (7-18) mg/dl Creatinine 1.12 (0.6-1.4) mg/dl Est Cr Clr Drug Dosing 77.7 ml/min Est GFR ( Amer) 78.4 Est GFR (Non-Af Amer) 67.6 BUN/Creatinine Ratio 40.8 H (10-20) Glucose 125 H (70-99) mg/dl Calcium 8.7 (8.5-10.1) mg/dl Phosphorus 2.1 L (2.5-4.9) mg/dl Magnesium 2.2 (1.8-2.4) mg/dl Total Bilirubin 0.4 (0.2-1) mg/dl Direct Bilirubin 0.1 (0-0.2) mg/dl AST 17 (15-37) U/L ALT 34 (12-78) U/L Alkaline Phosphatase 56 (45-117) U/L Troponin I < 0.015 (0-0.045) ng/ml Total Protein 6.1 L (6.4-8.2) gm/dl Albumin 3.0 L (3.4-5.0) gm/dl Globulin 3.1 (2.5-4.0) gm/dl Albumin/Globulin Ratio 1.0 (0.9-2) Lipase 208 (73-393) U/L Blood Type Blood Type Recheck Antibody Screen Crossmatch 10/15/18 10/15/18 10/16/18 Range/Units 15:36 16:17 00:44 WBC (4.8-10.8) K/uL RBC (4.7-6.1) M/uL Hgb 8.6 L (14.0-18.0) g/dL Hct (42-52) % MCV (80-100) fL MCH (25-34) pg MCHC (32-36) g/dL RDW Std Deviation (36.4-46.3) fL RDW Coeff of Mesfin (11.5-14.5) % Plt Count (130-400) K/uL MPV (7.4-10.4) fL Immature Gran % (Auto) % Neut % (Auto) % Lymph % (Auto) % [place] % (Auto) % Eos % (Auto) % Baso % (Auto) % Immature Gran # (Auto) (0.00-0.02) K/uL Neut # (Auto) (1.4-6.5) K/uL Lymph # (Auto) (1.2-3.4) K/uL [place] # (Auto) (0.11-0.59) K/uL Eos # (Auto) (0-0.5) K/uL Baso # (Auto) (0-0.2) K/uL Absolute Nucleated RBC (0-0) K/uL Nucleated RBC % (auto) % Polychromasia PT (9.0-12.0) Seconds INR (0.9-1.1) Sodium (136-145) mmol/L Potassium (3.5-5.1) mmol/L Chloride (98-107) mmol/L Carbon Dioxide (21-32) mmol/L Anion Gap (3-11) BUN (7-18) mg/dl Creatinine (0.6-1.4) mg/dl Est Cr Clr Drug Dosing ml/min Est GFR ( Amer) Est GFR (Non-Af Amer) BUN/Creatinine Ratio (10-20) Glucose (70-99) mg/dl Calcium (8.5-10.1) mg/dl Phosphorus (2.5-4.9) mg/dl Magnesium (1.8-2.4) mg/dl Total Bilirubin (0.2-1) mg/dl Direct Bilirubin (0-0.2) mg/dl AST (15-37) U/L ALT (12-78) U/L Alkaline Phosphatase (45-117) U/L Troponin I (0-0.045) ng/ml Total Protein (6.4-8.2) gm/dl Albumin (3.4-5.0) gm/dl Globulin (2.5-4.0) gm/dl Albumin/Globulin Ratio (0.9-2) Lipase (73-393) U/L Blood Type A Positive Blood Type Recheck A Positive Antibody Screen NEGATIVE Crossmatch See Detail Imaging Data Radiologist's Impression: Radiology results as stated below per my review and the radiologist's interpretation: CT SCAN OF THE ABDOMEN AND PELVIS WITH IV CONTRAST CLINICAL HISTORY: Generalized abdominal pain. Melanotic stool. Anemia. COMPARISON STUDY: No priors. TECHNIQUE: Following the IV administration of 94 cc of Optiray 320, CT scan of the abdomen and pelvis is performed from the lung bases to the proximal femora. Images are reviewed in the axial, sagittal, and coronal planes. IV contrast was administered without complication. A dose lowering technique was utilized adhering to the principles of ALARA. CT DOSE: 1169.44 mGy.cm FINDINGS: Lung bases: The heart is mildly enlarged and without pericardial effusion. There are coronary artery calcifications. The lung bases are clear. There is a small hiatal hernia. Liver: The contrast-enhanced liver is normal in size, contour, and attenuation. There is no intrahepatic biliary ductal dilatation. The hepatic veins and portal veins are patent. Gallbladder: Unremarkable. Spleen: Normal in size and attenuation. Pancreas: Unremarkable. Adrenal glands: Unremarkable. Kidneys: The contrast enhanced kidneys are normal in size and without hydronephrosis. Cortical scarring is noted in the lower pole of the right kidney. The kidneys enhance symmetrically. A 1.5 cm exophytic cyst arises from the right kidney. There is a small nonobstructing left renal calculus. Abdominal vasculature: The abdominal aorta is normal in course and caliber noting moderate atherosclerotic calcification. Bowel: The small bowel and colon are normal in course and caliber. The appendix is well-visualized and normal. Peritoneum: There is no intraperitoneal free air or abdominal ascites. There is a small fat-containing umbilical hernia. Lymphadenopathy: None. Pelvic viscera: There is mild median lobe hypertrophy of the prostate gland. The bladder is mildly distended but otherwise normal in appearance. There is a small fat-containing right inguinal hernia. Skeletal structures: The skeletal structures are osteopenic. A benign-appearing lucency is noted in the left iliac wing on image #331 measuring 1.6 cm. No lytic or blastic lesions are seen. There is a mild superior endplate compression deformity of L1. Moderate lumbosacral spondylosis is observed. Large posterior disc osteophyte complexes are seen at L3-L4, L4-L5, and L5-S1. There are healed right pubic ring fractures. Chronic posttraumatic deformity is also seen in the right sacrum. IMPRESSION: 1. There are no acute infectious or inflammatory findings in the abdomen or pelvis. 2. Mild cardiomegaly. 3. Additional findings as above. Electronically signed by: Scout Hutchison M.D. 10/15/2018 4:51 PM XR chest 1V portable CLINICAL HISTORY: Chest Pain COMPARISON STUDY: Chest radiograph September 05, 2015. FINDINGS: There is no pneumothorax or pleural effusion. Appearance of the chest is unchanged. Mild cardiomegaly is stable. There is no evidence for pulmonary edema. IMPRESSION: No acute cardiopulmonary findings. No change in appearance of the chest. Electronically signed by: Gaudencio Duron M.D. 10/15/2018 3:56 PM ECG Data Attestation: I personally reviewed and interpreted this ECG as follows: Indication: other (GI bleed) Rate (beats per minute): 80 Rhythm: normal sinus Findings: + other (normal axis; nonspecific T-wave abnormalities) Comparison ECG Date: from (08/28/15) Change: the following changes noted (nonspecific T-wave abnormalities are new) Blood Pressure Blood Pressure Findings: Normal blood pressure Blood Pressure Disposition: did not require urgent referral MDM Narrative The patient is a pleasant 67-year-old gentleman with a past medical history of BPH and recent admission for cellulitis who presents emergency department for evaluation after having outpatient labs showing a significant decrease in his H/H in the setting of having persistent black stools since his discharge per hpi. Patient is not on any blood thinners and patient was not on DVT prophylaxis due to history of intracranial aneurysm during his recent admission. On arrival patient is pale and fatigued appearing but no acute distress, afebrile stable vital signs. Abdomen is benign. Rectal exam demonstrates gross melena that is guaiac positive. WBC 14.5, nonspecific. H/H7 0.5/21.5 down from 8.1/23 yesterday both of which are significantly decreased from 4/30 of 15.7/42.8. Platelets within normal limits. Chemistry without acidosis. BUN 46 which is increased from patient's baseline BUN of 20-30. Creatinine within normal limits. Troponin negative. EKG with nonspecific T wave abnormalities and otherwise without evidence of overt acute ischemia. CT of abdomen pelvis negative for acute findings. Chest x-ray negative. Given the patient's declining H/H in the setting of active melena patient was consented and ordered from transfusion of 2 units of PRBCs. Case was reviewed with DEVORAH Ayers, agrees with plan for admission/resuscitation they will be available for consultation by inpatient team. Case was discussed with Dr. Vazquez, [facility] hospitalist who will evaluate the patient for admission. Impression & Plan Upper GI bleed Critical Care Time I have personally spent greater than 65 minutes of critical care time in the direct management of this patient. This includes bedside care, interpretation of diagnostic studies, and testing, discussion with consultants, patient, and family members, and other required patient management activities. This 65 minutes is in excess of all separately billable procedures. Critical Care Time: Yes Total Critical Care Time: 65 Discharge Plan Visit Data *Final* Discharge Date/Time: 10/15/18 20:03 Chief Complaint: Abnormal Labs/Diagnostic Testing Stated Complaint: LOW BLOOD COUNT ED Provider: Krish Gupta Discharge Problem: Upper GI bleed Patient Disposition: Admitted As Inpatient Discharge Instructions Interventions: ED Discharge Assessment Last Done: 10/15/18 20:03 The scribe's documentation has been prepared under my direction and personally reviewed by me in its entirety. I confirm that the note above accurately reflects all work, treatment, procedures, and medical decision making performed by me.
[2018-10-15] MEDS: FINASTERIDE 5 MG TAB PO SCH (22:26)
[2018-10-15] MEDS: METOPROLOL TARTRATE 25 MG TAB PO SCH (22:26)
[2018-10-15] MEDS: GABAPENTIN 100 MG CAP PO SCH (22:26)
[2018-10-15] MEDS: SIMVASTATIN 20 MG TAB PO SCH (22:26)
[2018-10-16] MEDS: METOPROLOL TARTRATE 25 MG TAB PO SCH ×2 (08:38→20:53)
[2018-10-16] MEDS: GABAPENTIN 100 MG CAP PO SCH ×2 (08:38→20:53)
[2018-10-16] MEDS: TAMSULOSIN HCL 0.4 MG CAP PO SCH (08:38)
[2018-10-16] MEDS ORDERED: SODIUM CHLORIDE 0.9% 1000ML 1,000 ML IV SCH (09:00)
[2018-10-16] MEDS ORDERED: PANTOprazole 80 MG in DEXTROSE 5% 100 ML IV ONE (09:00)
[2018-10-16] MEDS ORDERED: PANTOprazole 40 MG in DEXTROSE 5% 100 ML IV SCH (09:15)
--- NOTE | 2018-10-16 09:48 | Gastrointestinal Consultation ---
Date of Consultation October 16, 2018 Assessment & Plan (1) Melena: (2) Anemia: Pt is a 67 y/o male seen for symptomatic anemia treated w 2U PRBC transfusion, mild response in Hgb; also been having black sticky stools x 2 days. Hx of heartburn, and uses of TUMs, occasional use of Advil for arthritis pain. Suspect PUD. - Keep NPO, will schedule EGD eval today - PPI gtt - He has family hx of colon ca (2nd degree relatives), never had a colonoscopy before. I did recommend him to have a colonoscopy for colorectal ca screening - inpt vs outpt depending on EGD findings - GI will give further recs after EGD is performed. Supervising Physician Co-Signing Physician Notes I have personally seen and examined the patient with ADOLPH Marlow. Her note reflects my exam and findings. I agree with her impression and plan. Given NSAID use and melena, most c/w peptic ulcer disease. Will arrange EGD. Follow H/H. Burke Lanza M.D. History of Present Illness Reason for Consultation: GI bleeding Requesting Physician: Dr. Marychuy Nance Attending Physician: Dr. Burke Lanza History of Present Illness Pt is a 67 y/o male w PMHx of HTN, HLD, BPH, ruptured brain aneurysm and craniotomy 2008, chronic LE edema and cellulitis. He was recently admitted with bilateral LE cellulitis and DCd 10/07. He presented to ED w c/o progressive GARCIA, lightheadedness, and noted black sticky stool x 2 days. He does have occasional heartburn symptoms taking TUMs. Denies Peptobismol or other anti acids. He has associated nausea but no vomiting. No abdominal pain otherwise. Upon evaluation, noted he's anemic, w Hbg 8.6, baseline 14-15. PT/INR normal. BUN up at 46, Cr normal 1.12. Stool studies for infections pending. CT abd/pelvis w contrast showed no acute inflammatory or infectious bowel proces ses. Pt denies use of anticoagulants or blood thinners. However admits to using Advil and Tylenol for arthritic pain. Denies ETOH, tobacco, illicit drugs. He had family hx of colon ca (2 grandfathers, great aunt dx in 80s). He's never had any endoscopic evaluations before. Allergies Allergy/AdvReac Type Severity Reaction Status Date / Time No Known Allergies Allergy Unknown Verified 10/15/18 17:09 Home Medications Home Medications Medication Instructions Recorded Confirmed Type acetaminophen [Tylenol Extra 500 mg PO BID 10/02/18 10/15/18 History Strength] finasteride 5 mg PO HS 10/02/18 10/15/18 History metoprolol tartrate 25 mg PO BID 10/02/18 10/15/18 History simvastatin 20 mg PO HS 10/02/18 10/15/18 History gabapentin 100 mg PO BID #30 cap 10/07/18 10/15/18 Rx tamsulosin [Flomax] 0.4 mg PO QAM 10/15/18 10/15/18 History Patient History Medical History Osteoarthritis (Chronic) Status post stroke (Resolved) HTN, goal to be determined Leukocytosis Surgical History S/P brain surgery (Resolved) Family History Father , Cause of was never determined, possibly [place] No problems noted. Social History Preferred Language: Japanese Communication Ability: Effective Boiler Reliner Required: No Beliefs That Will Affect Care: None Current Living Situation: Spouse Other Information That Helps Us Care for You: No Feels Safe at Home: Yes Safety Concerns: Feels Safe At This Time Smoking Status: Never smoker Hx Alcohol Use: Yes Alcohol type: beer Hx Substance Use: No Review of Systems Review of Systems: All systems reviewed & are unremarkable except as noted in HPI & below Physical Exam Constitutional: WD/WN, vitals as above well groomed, cooperative and comf ortable Eyes: PERRL, conjunctivae normal, anicteric sclerae ENMT: external ear and nose normal, oropharynx normal Respiratory: normal respiratory effort, lungs clear to auscultation Cardiovascular: RRR, no murmur, no edema Gastrointestinal (Abdomen): normal bowel sounds, soft, nontender, no hepatosplenomegaly Skin: no jaundice Bilateral LE wrapped, appears edematous, and tender to touch. Hx of bilateral cellulitis Neurologic: Motor/Sensory: no asterixis Psychiatric: A+Ox3, euthymic affect Results & Data Vital Signs (Past 12 Hours) Vital Signs Temp Pulse Pulse Resp BP BP Pulse Ox 10/16/18 07:00 37.0 C 77 19 118/68 98 10/16/18 04:28 36.8 C 72 19 122/71 96 10/16/18 00:00 76 10/15/18 22:45 36.7 C 82 14 153/90 H 96 10/15/18 22:36 36.7 C 72 19 168/83 H 94 10/15/18 22:15 36.9 C 77 18 142/74 H 95 10/15/18 22:00 36.5 C 84 16 134/78 98 Laboratory Results Laboratory Results - last 72 hr 10/15/18 10/15/18 10/15/18 15:36 15:36 15:36 WBC 14.50 H RBC 2.24 L Hgb 7.5 L Hct 21.5 L MCV 96.0 MCH 33.5 MCHC 34.9 RDW Std Deviation 45.7 RDW Coeff of Mesfin 14.4 Plt Count 272 MPV 11.2 H Immature Gran % (Auto) 0.7 Neut % (Auto) 79.0 Lymph % (Auto) 13.6 Rush % (Auto) 6.1 Eos % (Auto) 0.1 Baso % (Auto) 0.5 Immature Gran # (Auto) 0.10 H Neut # (Auto) 11.47 H Lymph # (Auto) 1.97 Rush # (Auto) 0.88 H Eos # (Auto) 0.01 Baso # (Auto) 0.07 Absolute Nucleated RBC 0.14 H Nucleated RBC % (auto) 1.0 Polychromasia 1+ PT 11.3 INR 1.1 Sodium 136 Potassium 4.5 Chloride 106 Carbon Dioxide 28 Anion Gap 2.0 L BUN 46 H Creatinine 1.12 Est Cr Clr Drug Dosing 77.7 Est GFR ( Amer) 78.4 Est GFR (Non-Af Amer) 67.6 BUN/Creatinine Ratio 40.8 H Glucose 125 H Calcium 8.7 Phosphorus 2.1 L Magnesium 2.2 Total Bilirubin 0.4 Direct Bilirubin 0.1 AST 17 ALT 34 Alkaline Phosphatase 56 Troponin I < 0.015 Total Protein 6.1 L Albumin 3.0 L Globulin 3.1 Albumin/Globulin Ratio 1.0 Lipase 208 Blood Type Blood Type Recheck Antibody Screen Crossmatch 10/15/18 10/15/18 10/16/18 15:36 16:17 00:44 WBC RBC Hgb 8.6 L Hct MCV MCH MCHC RDW Std Deviation RDW Coeff of Mesfin Plt Count MPV Immature Gran % (Auto) Neut % (Auto) Lymph % (Auto) Rush % (Auto) Eos % (Auto) Baso % (Auto) Immature Gran # (Auto) Neut # (Auto) Lymph # (Auto) Rush # (Auto) Eos # (Auto) Baso # (Auto) Absolute Nucleated RBC Nucleated RBC % (auto) Polychromasia PT INR Sodium Potassium Chloride Carbon Dioxide Anion Gap BUN Creatinine Est Cr Clr Drug Dosing Est GFR ( Amer) Est GFR (Non-Af Amer) BUN/Creatinine Ratio Glucose Calcium Phosphorus Magnesium Total Bilirubin Direct Bilirubin AST ALT Alkaline Phosphatase Troponin I Total Protein Albumin Globulin Albumin/Globulin Ratio Lipase Blood Type A Positive Blood Type Recheck A Positive Antibody Screen NEGATIVE Crossmatch See Detail 10/16/18 04:34 WBC RBC Hgb 8.6 L Hct MCV MCH MCHC RDW Std Deviation RDW Coeff of Mesfin Plt Count MPV Immature Gran % (Auto) Neut % (Auto) Lymph % (Auto) Rush % (Auto) Eos % (Auto) Baso % (Auto) Immature Gran # (Auto) Neut # (Auto) Lymph # (Auto) Rush # (Auto) Eos # (Auto) Baso # (Auto) Absolute Nucleated RBC Nucleated RBC % (auto) Polychromasia PT INR Sodium Potassium Chloride Carbon Dioxide Anion Gap BUN Creatinine Est Cr Clr Drug Dosing Est GFR ( Amer) Est GFR (Non-Af Amer) BUN/Creatinine Ratio Glucose Calcium Phosphorus Magnesium Total Bilirubin Direct Bilirubin AST ALT Alkaline Phosphatase Troponin I Total Protein Albumin Globulin Albumin/Globulin Ratio Lipase Blood Type Blood Type Recheck Antibody Screen Crossmatch
--- NOTE | 2018-10-16 11:10 | Anesthesiology Consultation ---
Date of Service October 16, 2018 Assessment & Plan (1) Encounter for pre-operative examination: Chart Review Chart Review: Acceptable Risk for Surgery and Patient NOT seen in Pre Admission Testing Consults Requested none History Surgery Operation Date: 10/16/18 09:00 Proposed Procedures p Esophagogastroduodenoscopy Dr Pool Lanza Height/Weight Height: 5 ft 9 in Weight: 101.6 kg Allergies Allergy/AdvReac Type Severity Reaction Status Date / Time No Known Allergies Allergy Unknown Verified 10/15/18 17:09 Medications Home Medications Medication Instructions Recorded Confirmed Last Taken acetaminophen [Tylenol Extra 500 mg PO BID 10/02/18 10/15/18 10/15/18 06:00 Strength] finasteride 5 mg PO HS 10/02/18 10/15/18 10/01/18 metoprolol tartrate 25 mg PO BID 10/02/18 10/15/18 10/15/18 06:00 simvastatin 20 mg PO HS 10/02/18 10/15/18 10/01/18 gabapentin 100 mg PO BID #30 cap 10/07/18 10/15/18 10/15/18 06:00 tamsulosin [Flomax] 0.4 mg PO QAM 10/15/18 10/15/18 10/15/18 06:00 Active Medications Generic Name Dose Route Start Last Admin Trade Name Monico PRN Reason Stop Dose Admin Finasteride 5 mg 10/15/18 21:19 10/15/18 22:26 Proscar PO 11/14/18 21:18 5 mg HS NEGAR Administration Gabapentin 100 mg 10/15/18 21:19 10/16/18 08:38 Neurontin PO 11/14/18 21:18 100 mg BID NEGAR Administration Pantoprazole Sodium 40 mg/ 100 mls @ 20 mls/hr 10/16/18 09:15 10/16/18 09:26 Dextrose IV 11/15/18 09:14 20 mls/hr Q5H NEGAR Administration Metoprolol Tartrate 25 mg 10/15/18 21:19 10/16/18 08:38 Lopressor PO 11/14/18 21:18 25 mg BID NEGAR Administration Simvastatin 20 mg 10/15/18 21:19 10/15/18 22:26 Zocor PO 11/14/18 21:18 20 mg HS NEGAR Administration Tamsulosin HCl 0.4 mg 10/16/18 09:00 10/16/18 08:38 Flomax PO 11/15/18 08:59 0.4 mg QAM NEGAR Administration NPO Date Last Intake of Fluids: 10/15/18 Time Last Intake of Fluids: 10:30 Date Last Intake of Solids: 10/14/18 Time Last Intake of Solids: 10:30 Past Medical History Medical History Osteoarthritis (Chronic) Status post stroke (Resolved) HTN, goal to be determined Leukocytosis Past Family History Family History Father , Cause of was never determined, possibly [place] No problems noted. Past Surgical History Surgical History S/P brain surgery (Resolved) Social History Smoking Status: Never smoker Hx Alcohol Use: Yes Alcohol type: beer alcohol intake frequency: a few times a month Hx Substance Use: No Physical Exam Vital Signs Last Vital Signs Temp 36.6 C 10/16/18 10:48 Pulse 61 10/16/18 10:48 Resp 20 10/16/18 10:48 BP 119/65 10/16/18 10:48 Pulse Ox 94 10/16/18 10:48 Testing Laboratory Results 10/16/18 04:34 10/15/18 15:36 Blood Type A Positive 10/15/18 15:36 Antibody Screen NEGATIVE 10/15/18 15:36 PT 11.3 Seconds (9.0-12.0) 10/15/18 15:36 INR 1.1 (0.9-1.1) 10/15/18 15:36
[2018-10-16] MEDS ORDERED: ePHEDrine sulfate 50 MG/ML AMP IV PRN (11:24)
[2018-10-16] MEDS ORDERED: ATROPINE SULFATE 0.1 MG/ML 10ML SYR IV PRN (11:24)
[2018-10-16] MEDS ORDERED: LIDOCAINE HCL 2% 2 ML VIAL/AMP(20MG/ML) INFIL ONE ×2 (11:25)
[2018-10-16] MEDS ORDERED: PROPOFOL IV EMULSION 10 MG/ML 20 ML VIAL IV ONE (11:25)
--- NOTE | 2018-10-16 11:28 | History & Physical Report ---
Date of Service October 16, 2018 Assessment & Plan (1) Melena: stable for EGD History of Present Illness Chief Complaint: GI bleeding Primary Care Provider: Kirk Stein MD pt with melena and GI bleeding for EGD Allergies Allergy/AdvReac Type Severity Reaction Status Date / Time No Known Allergies Allergy Unknown Verified 10/15/18 17:09 Home Medications Home Medications Medication Instructions Recorded Confirmed Type acetaminophen [Tylenol Extra 500 mg PO BID 10/02/18 10/15/18 History Strength] finasteride 5 mg PO HS 10/02/18 10/15/18 History metoprolol tartrate 25 mg PO BID 10/02/18 10/15/18 History simvastatin 20 mg PO HS 10/02/18 10/15/18 History gabapentin 100 mg PO BID #30 cap 10/07/18 10/15/18 Rx tamsulosin [Flomax] 0.4 mg PO QAM 10/15/18 10/15/18 History Past Med/Surg History Medical History Osteoarthritis (Chronic) Status post stroke (Resolved) HTN, goal to be determined Leukocytosis Surgical History S/P brain surgery (Resolved) Family History Father , Cause of was never determined, possibly [place] No problems noted. Social History Preferred Language: Barbadian Communication Ability: Effective Abrasive Grader Required: No Beliefs That Will Affect Care: None Current Living Situation: Spouse Other Information That Helps Us Care for You: No Feels Safe at Home: Yes Safety Concerns: Feels Safe At This Time Smoking Status: Never smoker Hx Alcohol Use: Yes Alcohol type: beer Hx Substance Use: No Physical Exam Vital Signs (Past 24 Hours): Last Vital Signs Temp 36.6 C 10/16/18 10:48 Pulse 61 10/16/18 10:48 Resp 20 10/16/18 10:48 BP 119/65 10/16/18 10:48 Pulse Ox 94 10/16/18 10:48 Constitutional: WD/WN, vitals as above Respiratory: normal respiratory effort, lungs clear to auscultation Cardiovascular: RRR, no murmur, no edema Gastrointestinal (Abdomen): normal bowel sounds, soft, nontender, no hepatosplenomegaly
--- NOTE | 2018-10-16 11:58 | GI REPORT ---
Patient Name: Lul Gee Procedure Date: 10/16/2018 11:29 AM Date of : 1950 Admit Type: Inpatient Age: 67 Gender: Male Attending MD: Burke Lanza MD Procedure: Upper GI endoscopy Providers: Burke Lanza MD Referring MD: Aravind Euceda Do, Marychuy Nance Md Indications: Melena Medicines: See the Anesthesia note for documentation of the administered medications Complications: No immediate complications. Estimated Blood Loss: Estimated blood loss: none. Procedure: Pre-Anesthesia Assessment: - Prior to the procedure, a History and Physical was performed, and patient medications, allergies and sensitivities were reviewed. The patient's tolerance of previous anesthesia was reviewed. - The risks and benefits of the procedure and the sedation options and risks were discussed with the patient. All questions were answered and informed consent was obtained. - Patient identification and proposed procedure were verified prior to the procedure by the physician and the nurse. The procedure was verified in the pre-procedure area. - Pre-procedure physical examination revealed no contraindications to sedation. - After reviewing the risks and benefits, the patient was deemed in satisfactory condition to undergo the procedure. After obtaining informed consent, the endoscope was passed under direct vision. Throughout the procedure, the patient's blood pressure, pulse, and oxygen saturations were monitored continuously. The Endoscope was introduced through the mouth, and advanced to the third part of duodenum. The upper GI endoscopy was accomplished without difficulty. The patient tolerated the procedure well. Findings: One cratered esophageal ulcer with no bleeding was found. A few localized erosions were found in the gastric antrum. There were no stigmata of recent bleeding. One non-bleeding cratered duodenal ulcer was found in the first portion of the duodenum. The cardia and gastric fundus were normal on retroflexion. Impression: - Non-bleeding esophageal ulcer. - Mild erosive gastropathy of antrum. - One non-bleeding duodenal ulcer at first part of duodenum. - No blood seen in second or third part of duodenum. - No specimens collected. Recommendation: - Return patient to [facility] for ongoing care. - Patient should stay on clears only and follow his H/H. Vicki Batista MD 10/16/2018 11:57:29 AM This report has been signed electronically. Note Initiated On: 10/16/2018 11:29 AM Number of Addenda: 0 I attest to the content of the Intraoperative Record and orders documented therein, exceptions below {[id number]}
[2018-10-16] MEDS: PANTOprazole 40 MG in SYRINGE 0 ML IV SCH (12:39)
[2018-10-16 13:23] LABS: Hematocrit (blood only) 25.3 % (42-52); Hemoglobin 8.8 g/dL (14.0-18.0); Mean Corpuscular Hgb Conc 34.8 g/dL (32-36); Mean Corpuscular Volume 93.7 fL (80-100); Nucleated RBC # (auto) 0.09 K/uL (0-0); Nucleated RBC % (auto) 0.9 %; Platelet Count 237 K/uL (130-400); RDW Coefficient of Variation 15.7 % (11.5-14.5); RDW Standard Deviation 47.7 fL (36.4-46.3); White Blood Count 9.56 K/uL (4.8-10.8)
[2018-10-16 14:42] LABS: Appearance Urine Clear (Clear); Bilirubin Urine Negative (Negative); Blood Urine Negative (Negative); Color Urine Yellow; Glucose Urine UA Negative (Negative); Ketones Urine Negative (Negative); Leukocyte Esterase Urine Negative (Negative); Nitrite Urine Negative (Negative); Protein Urine Negative (Negative); Specific Gravity Urine 1.025 (1.000-1.030); Urobilinogen Urine Negative (Negative); pH Urine 6.5 (4.5-7.5)
--- NOTE | 2018-10-16 15:33 | Hospitalist Progress Note ---
Date of Service October 16, 2018 Assessment & Plan (1) Upper GI bleed: This patient is a 67 y/o m Hx HTN, HLD, BPH, ruptured brain aneurysm and craniotomy 2008, chronic LE edema and cellulitis. Recently admitted with BL cellulitis and DCd 10/07 on Bactrim. He presented with exertional dyspnea, lightheadedness and black pasty stools x 2 days. He denies CP, diarrhea, abdominal pain or vomiting, although he did have some nausea and dry heaving. An Hb on arrival to the ER was 7.5. His Hb on discharge 10/07 was 14.5. GI bleed -with a history of ibuprofen use in the recent past, plus with a hospitalization and possibly some stress-induced ulcers. EGD found an ulcer in the esophagus, erosive gastritis, and a cratered nonbleeding ulcer in the duodenum. -Continue Protonix 40 mg IV twice daily then convert to p.o. for 8 weeks after discharge -He will likely need a repeat EGD in 8 weeks to ensure healing -Avoid all NSAIDs and aspirin containing products -Continue to follow H&H although is holding stable now status post transfusion -Continue diet at clear liquids for now and advance when recommended to do so by GI (2) Anemia: Acute blood loss anemia Secondary to GI bleed Hemoglobin dropped from 14-7 -Now status post transfusion of 2 units PRBCs -Follow CBC in the morning -Continue to transfuse for hemoglobin less than 8 or for active bleeding (3) Dependent edema: With large amount of edema in the legs bilaterally but patient reports this is improved from previous Unclear if it is just dependent edema. Echocardiogram from 2016 is normal Usually takes torsemide 10 mg daily at home-this is on hold here for massive GI bleed in case of hypotension -Continue compression with Tubigrip -Restart torsemide likely tomorrow or upon discharge (4) BPH (benign prostatic hyperplasia): No acute issues -- cont Flomax, Finasteride (5) Cellulitis: Of the legs bilaterally, patient reports his swelling is significantly reduced of the legs He has been following with the wound care clinic and had the right leg debrided yesterday with a wound culture taken-wound culture result not available but no growth to date -Completed 8 of the 10 days of Bactrim prior to admission-we will discontinue at this time in case this contributed at all to his GI bleeding? Continue to follow with wound care nurse here and wound care clinic after discharge (6) HTN (hypertension): Blood pressure stable - will continue metoprolol with parameters -Holding amlodipine from home currently (7) H/O brain surgery: With a history of ruptured aneurysm and craniotomy, avoids anticoagulation due to this (8) Diabetes mellitus type 2 in obese: New diagnosis last admission with a hemoglobin A1c of 6.5% -No medications needed at this time -Would recommend follow-up with PCP (9) Hyperlipidemia: -Continue statin (10) Peptic ulcer disease: As above -Started PPI twice daily (11) DVT prophylaxis: No chemical means due to recent massive GI bleed Has Tubigrip compression stockings in place Disposition-remain on telemetry overnight Subjective Patient reports no further black stools today. He denies any heartburn or abdominal pain or chest pain. He returned from EGD and was found to have ulcers in the esophagus and duodenum, as well as erosive gastritis. He denies lightheadedness. He is tolerating a clear liquids diet now. Denies chest pain or shortness of breath. Telemetry with normal sinus rhythm with rates in the 60s to 70s with a first- degree AV block Review of Systems Review of Systems: All systems reviewed & are unremarkable except as noted in HPI & below Physical Exam Constitutional: WD/WN, vitals as above Eyes: PERRL, conjunctivae normal, anicteric sclerae ENMT: external ear and nose normal, oropharynx normal Neck: trachea midline, no thyromegaly Respiratory: normal respiratory effort, lungs clear to auscultation Cardiovascular: Rate/Rhythm: regular rate and regular rhythm Extremities: + edema (2+ pitting edema legs bilaterally to the knees) Gastrointestinal (Abdomen): normal bowel sounds, soft, nontender, no hepatosplenomegaly Musculoskeletal: Extremities: no cyanosis and no clubbing Skin: + lesion (Has bilateral leg wounds but I did not remove the dressings today) Neurologic: moves all extremities and awake; no focal motor deficits Psychiatric: A+Ox3, euthymic affect Results & Data Vital Signs (Past 12 Hours) Vital Signs Temp Pulse Pulse Resp BP Pulse Ox 10/16/18 15:08 36.9 C 68 19 116/61 100 10/16/18 12:46 36.7 C 63 19 119/66 98 10/16/18 12:20 67 18 122/72 97 05/09/19 12:05 63 20 122/50 L 97 10/16/18 11:50 59 L 20 92/58 L 94 10/16/18 10:48 36.6 C 61 20 119/65 94 10/16/18 08:00 75 10/16/18 07:00 37.0 C 77 19 118/68 98 10/16/18 04:28 36.8 C 72 19 122/71 96 Laboratory Results 10/16/18 10/16/18 10/16/18 Range/Units 17:24 14:20 12:49 WBC 10.56 9.56 (4.8-10.8) K/uL RBC 2.88 L 2.70 L (4.7-6.1) M/uL Hgb 9.4 L 8.8 L (14.0-18.0) g/dL Hct 27.5 L 25.3 L (42-52) % MCV 95.5 93.7 (80-100) fL MCH 32.6 32.6 (25-34) pg MCHC 34.2 34.8 (32-36) g/dL RDW Std Deviation 49.1 H 47.7 H (36.4-46.3) fL RDW Coeff of Mesfin 16.4 H 15.7 H (11.5-14.5) % Plt Count 232 237 (130-400) K/uL MPV 11.2 H 11.0 H (7.4-10.4) fL Absolute Nucleated RBC 0.12 H 0.09 H (0-0) K/uL Nucleated RBC % (auto) 1.1 0.9 % Urine Color Yellow Urine Appearance Clear (Clear) Urine pH 6.5 (4.5-7.5) Ur Specific [place] 1.025 (1.000-1.030) Urine Protein Negative (Negative) Urine Glucose (UA) Negative (Negative) Urine Ketones Negative (Negative) Urine Blood Negative (Negative) Urine Nitrite Negative (Negative) Urine Bilirubin Negative (Negative) Urine Urobilinogen Negative (Negative) Ur Leukocyte Esterase Negative (Negative) 10/16/18 Range/Units 04:34 WBC (4.8-10.8) K/uL RBC (4.7-6.1) M/uL Hgb 8.6 L (14.0-18.0) g/dL Hct (42-52) % MCV (80-100) fL MCH (25-34) pg MCHC (32-36) g/dL RDW Std Deviation (36.4-46.3) fL RDW Coeff of Mesfin (11.5-14.5) % Plt Count (130-400) K/uL MPV (7.4-10.4) fL Absolute Nucleated RBC (0-0) K/uL Nucleated RBC % (auto) % Urine Color Urine Appearance (Clear) Urine pH (4.5-7.5) Ur Specific [place] (1.000-1.030) Urine Protein (Negative) Urine Glucose (UA) (Negative) Urine Ketones (Negative) Urine Blood (Negative) Urine Nitrite (Negative) Urine Bilirubin (Negative) Urine Urobilinogen (Negative) Ur Leukocyte Esterase (Negative) (1) Cellulitis Laterality: unspecified laterality Site of cellulitis: extremity Site of cellulitis of extremity: lower extremity Qualified Code(s): L03.119 - Cellulitis of unspecified part of limb
--- NOTE | 2018-10-16 15:36 | Anesthesiology Progress Note ---
Date of Service October 16, 2018 Anesthesia Post Procedure Vital Signs Vital Signs: Temp Pulse Pulse Resp BP BP Pulse Ox 10/16/18 15:08 36.9 C 68 19 116/61 100 10/16/18 12:46 36.7 C 63 19 119/66 98 10/16/18 12:20 67 18 122/72 97 10/16/18 12:05 63 20 122/50 L 97 10/16/18 11:50 59 L 20 92/58 L 94 10/16/18 10:48 36.6 C 61 20 119/65 94 10/16/18 08:00 75 10/16/18 07:00 37.0 C 77 19 118/68 98 10/16/18 04:28 36.8 C 72 19 122/71 96 10/16/18 00:00 76 10/15/18 22:45 36.7 C 82 14 153/90 H 96 10/15/18 22:36 36.7 C 72 19 168/83 H 94 10/15/18 22:15 36.9 C 77 18 142/74 H 95 10/15/18 22:00 36.5 C 84 16 134/78 98 10/15/18 21:00 37.1 C 90 18 122/69 98 10/15/18 20:03 82 18 119/69 96 10/15/18 19:46 83 18 121/67 96 10/15/18 19:30 36.8 C 82 18 119/70 98 10/15/18 19:29 82 18 10/15/18 18:30 37 C 95 H 16 106/62 98 10/15/18 18:00 36.9 C 97 H 16 99/63 L 100 10/15/18 17:59 94 H 16 99/63 L 100 10/15/18 17:45 36.9 C 95 H 16 103/60 100 10/15/18 17:27 36.3 C L 88 16 121/66 100 10/15/18 16:43 88 16 117/70 98 10/15/18 15:56 97 Pain Intensity Bilateral Leg: Pain Intensity: 7 Back: Pain Intensity: 2 Transfer of Care Handoff Completed per policy Notes Mental Status: alert / awake / arousable Patient Amnestic to Procedure: Yes Nausea / Vomiting: adequately controlled Pain: adequately controlled Airway Patency, RR, SpO2: stable & adequate BP & HR: stable & adequate Hydration State: stable & adequate Anesthetic Complications: no major complications apparent and Pt Satisfied with anesthetic care
[2018-10-16 17:30] LABS: Hematocrit (blood only) 27.5 % (42-52); Hemoglobin 9.4 g/dL (14.0-18.0); Mean Corpuscular Hgb Conc 34.2 g/dL (32-36); Mean Corpuscular Volume 95.5 fL (80-100); Mean Platelet Volume 11.2 fL (7.4-10.4); Nucleated RBC # (auto) 0.12 K/uL (0-0); Nucleated RBC % (auto) 1.1 %; Platelet Count 232 K/uL (130-400); RDW Coefficient of Variation 16.4 % (11.5-14.5); RDW Standard Deviation 49.1 fL (36.4-46.3); Red Blood Count 2.88 M/uL (4.7-6.1); White Blood Count 10.56 K/uL (4.8-10.8)
[2018-10-16] MEDS: FINASTERIDE 5 MG TAB PO SCH (20:53)
[2018-10-16] MEDS: SIMVASTATIN 20 MG TAB PO SCH (20:54)
[2018-10-17 06:48] LABS: Basophils # (auto) 0.07 K/uL (0-0.2); Basophils % (auto) 0.8 %; Eosinophils # (auto) 0.22 K/uL (0-0.5); Eosinophils % (auto) 2.6 %; Hematocrit (blood only) 26.2 % (42-52); Hemoglobin 8.9 g/dL (14.0-18.0); Immature Granulocytes # (auto) 0.04 K/uL (0.00-0.02); Immature Granulocytes % (auto) 0.5 %; Lymphocytes # (auto) 1.33 K/uL (1.2-3.4); Lymphocytes % (auto) 15.9 %; Mean Corpuscular Volume 95.3 fL (80-100); Mean Platelet Volume 11.1 fL (7.4-10.4); Monocytes # (auto) 0.73 K/uL (0.11-0.59); Monocytes % (auto) 8.8 %; Neutrophils # (auto) 5.95 K/uL (1.4-6.5); Neutrophils % (auto) 71.4 %; Nucleated RBC # (auto) 0.06 K/uL (0-0); Nucleated RBC % (auto) 0.7 %; Platelet Count 250 K/uL (130-400); RDW Coefficient of Variation 16.4 % (11.5-14.5); RDW Standard Deviation 47.7 fL (36.4-46.3); Red Blood Count 2.75 M/uL (4.7-6.1); White Blood Count 8.34 K/uL (4.8-10.8)
[2018-10-17 07:25] LABS: BUN Creatinine Ratio 23.9 (10-20); Calcium 8.4 mg/dl (8.5-10.1); Creatinine Clr Calc Pharmacy 113.7 ml/min; Est GFR (African American) 110.6; Est GFR (Non-African American) 95.4; Potassium 3.7 mmol/L (3.5-5.1)
[2018-10-17] MEDS: TAMSULOSIN HCL 0.4 MG CAP PO SCH (09:04)
[2018-10-17] MEDS: METOPROLOL TARTRATE 25 MG TAB PO SCH ×2 (09:04→19:49)
[2018-10-17] MEDS: PANTOprazole 40 MG in SYRINGE 0 ML IV SCH (09:04)
[2018-10-17] MEDS: GABAPENTIN 100 MG CAP PO SCH ×2 (09:04→19:50)
[2018-10-17 09:17] LABS: Folate (Folic Acid) 12.86 ng/ml (>5.38)
--- NOTE | 2018-10-17 12:04 | Gastroenterology Progress Note ---
Date of Service October 17, 2018 Assessment & Plan (1) Melena: (2) Anemia: Pt is a 67 y/o male seen for symptomatic anemia treated w 2U PRBC transfusion, mild response in Hgb; also been having black sticky stools x 2 days. Hx of heartburn, and uses of TUMs, occasional use of Advil for arthritis pain. EGD on 10/16/18 showed non bleeding esophageal and duodenal ulcer, erosive gastropathy of antrum. No more melena since EGD, no abd pain, n/v. H/H stable - Advance to FL diet; continue to advance as tolerated to soft diet - PPI IV BID; on DC may convert to PO BID dose x 8 weeks then once daily - Avoid NSAIDs. - Monitor H/H and transfuse prn - If continues to be stable w/o further s/s of GI bleeding throughout the day, then no contraindication for DC home from GI standpoint. - Will discuss w Dr. Lanza timing of repeat EGD to re-eval ulcer healing. He also has family hx of colon ca (2nd degree relatives), never had a colonoscopy before. I did recommend him to have a colonoscopy for colorectal ca screening Supervising Physician Co-Signing Physician Notes I have personally seen and examined the patient with ADOLPH Marlow. Her note reflects my exam and findings. I agree with her impression and plan. I recommend a repeat upper endoscopy to confirm healing of ulcers in 4-6 weeks. Discussed with patient and at bedside. Burke Lanza M.D. Subjective Pt feels well, denies any abd pain, n/v. Has had some more BMs since EGD but RN noted no more melena, mostly looser brown stools H/H stable. Review of Systems Review of Systems: All systems reviewed & are unremarkable except as noted in HPI & below Physical Exam Constitutional: WD/WN, vitals as above well groomed, cooperative and comfortable Eyes: PERRL, conjunctivae normal, anicteric sclerae ENMT: external ear and nose normal, oropharynx normal Respiratory: normal respiratory effort, lungs clear to auscultation Cardiovascular: Rate/Rhythm: regular rate and regular rhythm Heart Sounds: no gallop and no murmur bilateral LE wrapped, hx of cellulitis. Gastrointestinal (Abdomen): normal bowel sounds, soft, nontender, no hepatosplenomegaly Skin: no rashes, warm and dry no jaundice Neurologic: Motor/Sensory: no asterixis Psychiatric: A+Ox3, euthymic affect Results & Data Vital Signs (Past 12 Hours) Vital Signs Temp Pulse Pulse Resp BP Pulse Ox 10/17/18 11:57 36.7 C 69 19 109/63 98 10/17/18 08:00 79 10/17/18 07:05 37.0 C 79 18 114/64 97 10/17/18 02:37 36.8 C 75 18 123/66 96 Laboratory Results - last 72 hr 10/15/18 10/15/18 10/15/18 15:36 15:36 15:36 WBC 14.50 H RBC 2.24 L Hgb 7.5 L Hct 21.5 L MCV 96.0 MCH 33.5 MCHC 34.9 RDW Std Deviation 45.7 RDW Coeff of Mesfin 14.4 Plt Count 272 MPV 11.2 H Immature Gran % (Auto) 0.7 Neut % (Auto) 79.0 Lymph % (Auto) 13.6 [place] % (Auto) 6.1 Eos % (Auto) 0.1 Baso % (Auto) 0.5 Immature Gran # (Auto) 0.10 H Neut # (Auto) 11.47 H Lymph # (Auto) 1.97 [place] # (Auto) 0.88 H Eos # (Auto) 0.01 Baso # (Auto) 0.07 Absolute Nucleated RBC 0.14 H Nucleated RBC % (auto) 1.0 Polychromasia 1+ PT 11.3 INR 1.1 Sodium 136 Potassium 4.5 Chloride 106 Carbon Dioxide 28 Anion Gap 2.0 L BUN 46 H Creatinine 1.12 Est Cr Clr Drug Dosing 77.7 Est GFR ( Amer) 78.4 Est GFR (Non-Af Amer) 67.6 BUN/Creatinine Ratio 40.8 H Glucose 125 H Calcium 8.7 Phosphorus 2.1 L Magnesium 2.2 Total Bilirubin 0.4 Direct Bilirubin 0.1 AST 17 ALT 34 Alkaline Phosphatase 56 Troponin I < 0.015 Total Protein 6.1 L Albumin 3.0 L Globulin 3.1 Albumin/Globulin Ratio 1.0 Lipase 208 Vitamin B12 Folate Urine Color Urine Appearance Urine pH Ur Specific [place] Urine Protein Urine Glucose (UA) Urine Ketones Urine Blood Urine Nitrite Urine Bilirubin Urine Urobilinogen Ur Leukocyte Esterase Blood Type Blood Type Recheck Antibody Screen Crossmatch 10/15/18 10/15/18 10/16/18 15:36 16:17 00:44 WBC RBC Hgb 8.6 L Hct MCV MCH MCHC RDW Std Deviation RDW Coeff of Mesfin Plt Count MPV Immature Gran % (Auto) Neut % (Auto) Lymph % (Auto) [place] % (Auto) Eos % (Auto) Baso % (Auto) Immature Gran # (Auto) Neut # (Auto) Lymph # (Auto) [place] # (Auto) Eos # (Auto) Baso # (Auto) Absolute Nucleated RBC Nucleated RBC % (auto) Polychromasia PT INR Sodium Potassium Chloride Carbon Dioxide Anion Gap BUN Creatinine Est Cr Clr Drug Dosing Est GFR ( Amer) Est GFR (Non-Af Amer) BUN/Creatinine Ratio Glucose Calcium Phosphorus Magnesium Total Bilirubin Direct Bilirubin AST ALT Alkaline Phosphatase Troponin I Total Protein Albumin Globulin Albumin/Globulin Ratio Lipase Vitamin B12 Folate Urine Color Urine Appearance Urine pH Ur Specific [place] Urine Protein Urine Glucose (UA) Urine Ketones Urine Blood Urine Nitrite Urine Bilirubin Urine Urobilinogen Ur Leukocyte Esterase Blood Type A Positive Blood Type Recheck A Positive Antibody Screen NEGATIVE Crossmatch See Detail 10/16/18 10/16/18 10/16/18 04:34 12:49 14:20 WBC 9.56 RBC 2.70 L Hgb 8.6 L 8.8 L Hct 25.3 L MCV 93.7 MCH 32.6 MCHC 34.8 RDW Std Deviation 47.7 H RDW Coeff of Mesfin 15.7 H Plt Count 237 MPV 11.0 H Immature Gran % (Auto) Neut % (Auto) Lymph % (Auto) [place] % (Auto) Eos % (Auto) Baso % (Auto) Immature Gran # (Auto) Neut # (Auto) Lymph # (Auto) [place] # (Auto) Eos # (Auto) Baso # (Auto) Absolute Nucleated RBC 0.09 H Nucleated RBC % (auto) 0.9 Polychromasia PT INR Sodium Potassium Chloride Carbon Dioxide Anion Gap BUN Creatinine Est Cr Clr Drug Dosing Est GFR ( Amer) Est GFR (Non-Af Amer) BUN/Creatinine Ratio Glucose Calcium Phosphorus Magnesium Total Bilirubin Direct Bilirubin AST ALT Alkaline Phosphatase Troponin I Total Protein Albumin Globulin Albumin/Globulin Ratio Lipase Vitamin B12 Folate Urine Color Yellow Urine Appearance Clear Urine pH 6.5 Ur Specific [place] 1.025 Urine Protein Negative Urine Glucose (UA) Negative Urine Ketones Negative Urine Blood Negative Urine Nitrite Negative Urine Bilirubin Negative Urine Urobilinogen Negative Ur Leukocyte Esterase Negative Blood Type Blood Type Recheck Antibody Screen Crossmatch 10/16/18 10/17/18 10/17/18 17:24 06:30 06:30 WBC 10.56 8.34 RBC 2.88 L 2.75 L Hgb 9.4 L 8.9 L Hct 27.5 L 26.2 L MCV 95.5 95.3 MCH 32.6 32.4 MCHC 34.2 34.0 RDW Std Deviation 49.1 H 47.7 H RDW Coeff of Mesfin 16.4 H 16.4 H Plt Count 232 250 MPV 11.2 H 11.1 H Immature Gran % (Auto) 0.5 Neut % (Auto) 71.4 Lymph % (Auto) 15.9 [place] % (Auto) 8.8 Eos % (Auto) 2.6 Baso % (Auto) 0.8 Immature Gran # (Auto) 0.04 H Neut # (Auto) 5.95 Lymph # (Auto) 1.33 [place] # (Auto) 0.73 H Eos # (Auto) 0.22 Baso # (Auto) 0.07 Absolute Nucleated RBC 0.12 H 0.06 H Nucleated RBC % (auto) 1.1 0.7 Polychromasia PT INR Sodium 140 Potassium 3.7 D Chloride 110 H Carbon Dioxide 25 Anion Gap 5.0 BUN 18 D Creatinine 0.74 D Est Cr Clr Drug Dosing 113.7 Est GFR ( Amer) 110.6 Est GFR (Non-Af Amer) 95.4 BUN/Creatinine Ratio 23.9 H Glucose 92 Calcium 8.4 L Phosphorus Magnesium Total Bilirubin Direct Bilirubin AST ALT Alkaline Phosphatase Troponin I Total Protein Albumin Globulin Albumin/Globulin Ratio Lipase Vitamin B12 Folate Urine Color Urine Appearance Urine pH Ur Specific [place] Urine Protein Urine Glucose (UA) Urine Ketones Urine Blood Urine Nitrite Urine Bilirubin Urine Urobilinogen Ur Leukocyte Esterase Blood Type Blood Type Recheck Antibody Screen Crossmatch 10/17/18 08:10 WBC RBC Hgb Hct MCV MCH MCHC RDW Std Deviation RDW Coeff of Mesfin Plt Count MPV Immature Gran % (Auto) Neut % (Auto) Lymph % (Auto) [place] % (Auto) Eos % (Auto) Baso % (Auto) Immature Gran # (Auto) Neut # (Auto) Lymph # (Auto) [place] # (Auto) Eos # (Auto) Baso # (Auto) Absolute Nucleated RBC Nucleated RBC % (auto) Polychromasia PT INR Sodium Potassium Chloride Carbon Dioxide Anion Gap BUN Creatinine Est Cr Clr Drug Dosing Est GFR ( Amer) Est GFR (Non-Af Amer) BUN/Creatinine Ratio Glucose Calcium Phosphorus Magnesium Total Bilirubin Direct Bilirubin AST ALT Alkaline Phosphatase Troponin I Total Protein Albumin Globulin Albumin/Globulin Ratio Lipase Vitamin B12 515 Folate 12.86 Urine Color Urine Appearance Urine pH Ur Specific [place] Urine Protein Urine Glucose (UA) Urine Ketones Urine Blood Urine Nitrite Urine Bilirubin Urine Urobilinogen Ur Leukocyte Esterase Blood Type Blood Type Recheck Antibody Screen Crossmatch
--- NOTE | 2018-10-17 14:17 | Hospitalist Progress Note ---
Date of Service October 17, 2018 Assessment & Plan (1) Upper GI bleed: 67 y/o m Hx HTN, HLD, BPH, ruptured brain aneurysm and craniotomy 2008, chronic LE edema and cellulitis. Recently admitted with BL cellulitis and DCd 10/07 on Bactrim. He was admittd with GI bleeding and symptomatic anemia with exertional dyspnea, lightheadedness and black pasty stools x 2 days. Symptomatic anemia secondary to GI bleeding GI bleed, with a history of ibuprofen use in the recent past, plus with a ho spitalization and possibly some stress-induced ulcers. EGD found an ulcer in the esophagus, erosive gastritis, and a cratered nonbleeding ulcer in the duodenum. Continue Protonix 40 mg IV twice daily then convert to p.o. for 8 weeks after discharge likely need a repeat EGD in 8 weeks to ensure healing Has educated patient to avoid all NSAIDs and aspirin containing products Continue to follow H&H although is holding stable now status post transfusion advance when recommended to do so by GI (2) Anemia: Acute blood loss anemia upon admission Secondary to GI bleed Hemoglobin dropped from 14 to 7 status post transfusion of 2 units PRBCs, was up to 9.4 and dropped to 8.9 Continue monitor H&H, continue to transfuse for hemoglobin less than 8 or for active bleeding (3) Dependent edema: dependent edema, etiology unknown,. Echocardiogram from 2016 is normal continue compression with Tubigrip may restart torsemide likely upon discharge (4) BPH (benign prostatic hyperplasia): No acute issues, cont Flomax, Finasteride (5) Cellulitis: bilaterally, has been following with the wound care clinic and had the right leg debrided yesterday with a wound culture taken-wound culture result not available but no growth to date Completed 8 of the 10 days of Bactrim prior to admission-we will discontinue at this time in case this contributed at all to his GI bleeding, no Bactrim, continue follow-up, (6) HTN (hypertension): Blood pressure stable, continue metoprolol with parameters Blood pressure: It is 109/63 continue to hold amlodipine from home currently (7) H/O brain surgery: With a history of ruptured aneurysm and craniotomy, avoids anticoagulation due to this (8) Diabetes mellitus type 2 in obese: New diagnosis last admission with a hemoglobin A1c of 6.5%, No medications needed at this time, Would recommend follow-up with PCP (9) Hyperlipidemia: continue statin (10) Peptic ulcer disease: As above -Started PPI twice daily (11) DVT prophylaxis: No chemical means due to recent massive GI bleed Has Tubigrip compression stockings in place Encourage out of bed and walk, Disposition-remain on telemetry overnight, if hemoglobin continues stable t omorrow will be discharged tomorrow Subjective Sitting up in chair, awake alert orientated conversational, pleasant, report doing well, Review of Systems Review of Systems: General Appearance: Obesity, WD/WN, no apparent distress, Eyes: normal inspection, PERRL, EOMI, sclerae normal ENT: normal ENT inspection, hearing grossly normal, pharynx normal Neck: supple, no adenopathy, thyroid normal, no JVD, no carotid bruits, trachea midline Respiratory/Chest: chest non-tender, normal breath sounds, no respiratory distress, no accessory muscle use, breath sounds, rales, wheezing Cardiovascular: regular rate, rhythm, no JVD, no murmur Abdomen: normal bowel sounds, non tender, soft, no organomegaly, Extremities: normal range of motion, non-tender, normal inspection, no pedal edema, no calf tenderness, normal capillary refill, pelvis stable, joint has no limited range of motion, capillary refill is normal, no cyanosis clubbing Neurologic/Psychiatric: usability architect II-XII nml as tested, no motor/sensory deficits, alert, normal mood/affect, oriented x 3 Skin: Bilateral lower extremities warning, and is wrapping, patient report local wound looks good, has wound care follow-up, no obvious bruising or drainage Results & Data Vital Signs (Past 12 Hours) Vital Signs Temp Pulse Pulse Resp BP Pulse Ox 10/17/18 11:57 36.7 C 69 19 109/63 98 10/17/18 08:00 79 10/17/18 07:05 37.0 C 79 18 114/64 97 10/17/18 02:37 36.8 C 75 18 123/66 96 Laboratory Results - last 24 hr 10/16/18 10/16/18 10/17/18 14:20 17:24 06:30 WBC 10.56 8.34 RBC 2.88 L 2.75 L Hgb 9.4 L 8.9 L Hct 27.5 L 26.2 L MCV 95.5 95.3 MCH 32.6 32.4 MCHC 34.2 34.0 RDW Std Deviation 49.1 H 47.7 H RDW Coeff of Mesfin 16.4 H 16.4 H Plt Count 232 250 MPV 11.2 H 11.1 H Immature Gran % (Auto) 0.5 Neut % (Auto) 71.4 Lymph % (Auto) 15.9 [place] % (Auto) 8.8 Eos % (Auto) 2.6 Baso % (Auto) 0.8 Immature Gran # (Auto) 0.04 H Neut # (Auto) 5.95 Lymph # (Auto) 1.33 [place] # (Auto) 0.73 H Eos # (Auto) 0.22 Baso # (Auto) 0.07 Absolute Nucleated RBC 0.12 H 0.06 H Nucleated RBC % (auto) 1.1 0.7 Sodium Potassium Chloride Carbon Dioxide Anion Gap BUN Creatinine Est Cr Clr Drug Dosing Est GFR ( Amer) Est GFR (Non-Af Amer) BUN/Creatinine Ratio Glucose Calcium Vitamin B12 Folate Urine Color Yellow Urine Appearance Clear Urine pH 6.5 Ur Specific [place] 1.025 Urine Protein Negative Urine Glucose (UA) Negative Urine Ketones Negative Urine Blood Negative Urine Nitrite Negative Urine Bilirubin Negative Urine Urobilinogen Negative Ur Leukocyte Esterase Negative 10/17/18 10/17/18 06:30 08:10 WBC RBC Hgb Hct MCV MCH MCHC RDW Std Deviation RDW Coeff of Mesfin Plt Count MPV Immature Gran % (Auto) Neut % (Auto) Lymph % (Auto) [place] % (Auto) Eos % (Auto) Baso % (Auto) Immature Gran # (Auto) Neut # (Auto) Lymph # (Auto) [place] # (Auto) Eos # (Auto) Baso # (Auto) Absolute Nucleated RBC Nucleated RBC % (auto) Sodium 140 Potassium 3.7 D Chloride 110 H Carbon Dioxide 25 Anion Gap 5.0 BUN 18 D Creatinine 0.74 D Est Cr Clr Drug Dosing 113.7 Est GFR ( Amer) 110.6 Est GFR (Non-Af Amer) 95.4 BUN/Creatinine Ratio 23.9 H Glucose 92 Calcium 8.4 L Vitamin B12 515 Folate 12.86 Urine Color Urine Appearance Urine pH Ur Specific [place] Urine Protein Urine Glucose (UA) Urine Ketones Urine Blood Urine Nitrite Urine Bilirubin Urine Urobilinogen Ur Leukocyte Esterase (1) Cellulitis Site of cellulitis: extremity Site of cellulitis of extremity: lower extremity Laterality: unspecified laterality Qualified Code(s): L03.119 - Cellulitis of unspecified part of limb
[2018-10-17] MEDS: FINASTERIDE 5 MG TAB PO SCH (19:50)
[2018-10-17] MEDS: PANTOprazole 40 MG TAB PO SCH (19:51)
[2018-10-17] MEDS: SIMVASTATIN 20 MG TAB PO SCH (19:51)
[2018-10-18 06:44] LABS: Basophils # (auto) 0.08 K/uL (0-0.2); Eosinophils # (auto) 0.26 K/uL (0-0.5); Eosinophils % (auto) 3.3 %; Hematocrit (blood only) 27.6 % (42-52); Hemoglobin 9.4 g/dL (14.0-18.0); Immature Granulocytes # (auto) 0.07 K/uL (0.00-0.02); Immature Granulocytes % (auto) 0.9 %; Lymphocytes % (auto) 16.5 %; Mean Corpuscular Hgb Conc 34.1 g/dL (32-36); Mean Corpuscular Volume 95.5 fL (80-100); Mean Platelet Volume 11.2 fL (7.4-10.4); Monocytes # (auto) 0.59 K/uL (0.11-0.59); Monocytes % (auto) 7.5 %; Neutrophils # (auto) 5.57 K/uL (1.4-6.5); Neutrophils % (auto) 70.8 %; Nucleated RBC # (auto) 0.03 K/uL (0-0); Nucleated RBC % (auto) 0.3 %; Platelet Count 255 K/uL (130-400); RDW Coefficient of Variation 16.8 % (11.5-14.5); RDW Standard Deviation 49.5 fL (36.4-46.3); Red Blood Count 2.89 M/uL (4.7-6.1); White Blood Count 7.87 K/uL (4.8-10.8)
[2018-10-18 07:19] LABS: BUN Creatinine Ratio 15.6 (10-20); Calcium 8.4 mg/dl (8.5-10.1); Creatinine Clr Calc Pharmacy 107.8 ml/min; Est GFR (African American) 106.6; Potassium 3.6 mmol/L (3.5-5.1)
[2018-10-18] MEDS: PANTOprazole 40 MG TAB PO SCH (09:00)
[2018-10-18] MEDS: GABAPENTIN 100 MG CAP PO SCH (09:00)
[2018-10-18] MEDS: METOPROLOL TARTRATE 25 MG TAB PO SCH (09:00)
[2018-10-18] MEDS: TAMSULOSIN HCL 0.4 MG CAP PO SCH (09:00)
--- NOTE | 2018-10-18 14:21 | Discharge Summary ---
Date of Service October 18, 2018 Admission HPI Per Admitting Provider pt with melena and GI bleeding for EGD Principal Diagnosis no Discharge Exam General Appearance: Obesity, WD/WN, no apparent distress, Eyes: normal inspection, PERRL, EOMI, sclerae normal ENT: normal ENT inspection, hearing grossly normal, pharynx normal Neck: supple, no adenopathy, thyroid normal, no JVD, no carotid bruits, trachea midline Respiratory/Chest: chest non-tender, normal breath sounds, no respiratory distress, no accessory muscle use, breath sounds, rales, wheezing Cardiovascular: regular rate, rhythm, no JVD, no murmur Abdomen: normal bowel sounds, non tender, soft, no organomegaly, Extremities: normal range of motion, non-tender, normal inspection, 1-2 pedal edema, no calf tenderness, normal capillary refill, pelvis stable, joint has no limited range of motion, capillary refill is normal, no cyanosis clubbing Neurologic/Psychiatric: natural resources engineer II-XII nml as tested, no motor/sensory deficits, alert, normal mood/affect, oriented x 3 Skin: Bilateral lower extremities warning, and is wrapping, patient report local wound looks good, has wound care follow-up, no obvious bruising or drainage Discharge Data Allergies Allergy/AdvReac Type Severity Reaction Status Date / Time No Known Allergies Allergy Unknown Verified 10/15/18 17:09 Consultations 10/15/18 16:57 ED Decision to Admit Stat 10/16/18 08:42 Consult Gastroenterology Routine Procedures Performed Operation Date: 10/16/18 09:00 Actual Procedures p Esophagogastroduodenoscopy - Burke Lanza Ordered Studies 10/15/18 15:19 CT abd pelvis IV con only Stat Hospital Course (1) Upper GI bleed: 67 y/o m Hx HTN, HLD, BPH, ruptured brain aneurysm and craniotomy 2008, chronic LE edema and cellulitis. Recently admitted with BL cellulitis and DCd 10/07 on Bactrim. He was admittd with GI bleeding and symptomatic anemia with exertional dyspnea on Oct 16 2018, he ahs lightheadedness and black pasty stools x 2 days. Symptomatic anemia secondary to GI bleeding GI bleed, with a history of ibuprofen use in the recent past, plus with a hospitalization and possibly some stress-induced ulcers. EGD found an ulcer in the esophagus, erosive gastritis, and a cratered nonbleeding ulcer in the duodenum. Continue Protonix 40 mg IV twice daily then convert to p.o. for 8 weeks after discharge likely need a repeat EGD in 8 weeks to ensure healing Has educated patient to avoid all NSAIDs and aspirin containing products Continue to follow H&H although is holding stable now status post transfusion advance when recommended to do so by GI, toelrated well I have told pt that he has symptomatic anemia secondary to GI bleeding He was was taking ibuprofen in the recent past, I tols him to avoid it, also avoid all NSAIDs and aspirin containing products pt need to continue Protonix 40 mg oral twice daily for 8 weeks after discharge, need to get more Rx from pcp I told pt that he needs a repeat EGD in 8 weeks to ensure healing, and need to follow up GI specialist as instructed (2) Anemia: Acute blood loss anemia upon admission Secondary to GI bleed Hemoglobin dropped from 14 to 7 status post transfusion of 2 units PRBCs, was up to 9.4 and dropped to 8.9, today is 8.9 again Continue monitor H&H, continue to transfuse for hemoglobin less than 8 or for active bleeding (3) Dependent edema: dependent edema, etiology unknown,. Echocardiogram from 2016 is normal continue compression with Tubigrip may restart torsemide likely upon discharge (4) BPH (benign prostatic hyperplasia): No acute issues, cont Flomax, Finasteride (5) Cellulitis: bilaterally, has been following with the wound care clinic and had the right leg debrided yesterday with a wound culture taken-wound culture result not available but no growth to date Completed 8 of the 10 days of Bactrim prior to admission-we will discontinue at this time in case this contributed at all to his GI bleeding, no Bactrim, continue follow-up, (6) HTN (hypertension): Blood pressure stable, continue metoprolol with parameters Blood pressure: It is 109/63 continue to hold amlodipine from home currently (7) H/O brain surgery: With a history of ruptured aneurysm and craniotomy, avoids anticoagulation due to this (8) Diabetes mellitus type 2 in obese: New diagnosis last admission with a hemoglobin A1c of 6.5%, No medications needed at this time, Would recommend follow-up with PCP (9) Hyperlipidemia: continue statin (10) Peptic ulcer disease: As above -Started PPI twice daily (11) DVT prophylaxis: No chemical means due to recent massive GI bleed Has Tubigrip compression stockings in place Encourage out of bed and walk, Disposition-remain on telemetry overnight, if hemoglobin continues stable tomorrow will be discharged tomorrow Total Time Total Time Spent Total Time Spent (In Minutes): >31min Discharge Plan Discharge Items Patient Disposition: Home - Self-Care Reason For Visit: GI BLEED Discharge Diagnosis: Symptomatic anemia secondary to GI bleeding Condition: Fair Discharge Goals: Decrease discomfort, Diagnostic testing, Improve disease control, Improve function and Increase independence Activity: Resume your previous activity Non-emergency contact: Primary Care Provider Call non-emergency contact if: you have any medication questions Follow-up/Referrals: Kirk Stein MD [Primary Care Provider] - Diet: Heart Healthy Addtl Provider Instructions: you have Symptomatic anemia secondary to GI bleeding EGD found an ulcer in the esophagus, erosive gastritis, and a cratered nonbleeding ulcer in the duodenum. you was taking ibuprofen in the recent past please avoid it, also avoid all NSAIDs and aspirin containing products you need to continue Protonix 40 mg oral twice daily for 8 weeks after discharge, need to get more Rx from pcp you likely need a repeat EGD in 8 weeks to ensure healing you need to follow up GI specialist as instructed you need to follow up with your primary care physician in 1 week, - take medication as instructed, never overdose or any misuse, or take with alcohol, because misuse of medicine may cause organ damage or , call me, or your primary care physician if have questions of discharge medicaitons. - call your primary care physician, or go to local emergency room if has any fever/chill, chest pain, shortness of breathing, nausea/vomiting/abdominal pain, facial droop/slurry speech/local weakness, or if has any questions. - fall precaution - diet as instructed Prescriptions: New pantoprazole 40 mg Tablet,Delayed Release (Dr/Ec) 40 mg PO BID 30 Days Qty: 60 RF: 0 Continued acetaminophen [Tylenol Extra Strength] 500 mg Tablet 500 mg PO BID RF: 0 simvastatin 20 mg tablet 20 mg PO HS RF: 0 finasteride 5 mg tablet 5 mg PO HS RF: 0 metoprolol tartrate 25 mg tablet 25 mg PO BID RF: 0 gabapentin 100 mg capsule 100 mg PO BID Qty: 30 RF: 0 tamsulosin [Flomax] 0.4 mg capsule 0.4 mg PO QAM RF: 0 torsemide 20 mg tablet 10 mg PO QAM RF: 0 amlodipine 5 mg tablet 5 mg PO DAILY RF: 0 Discontinued sulfamethoxazole-trimethoprim 800-160 mg tablet 1 tab PO BID RF: 0 Stand-Alone Forms: [facility] Discharge Orders: Discharge Order (Routine); Ordered 10/18/18 Ordered By: Ebenezer Dupree Admission Data Admit Date/Time: 10/15/18 19:56 Attending Provider: Ebenezer Dupree Admit Provider: Maurice Vazquez Primary Care Provider: Kirk Stein Other Providers: Maurice Vazquez ; Burke Lanza ; Marychuy Nance Service: Telemetry Other Interventions: Discharge Summary Assessment (RN) Last Done: 10/18/18 10:00 DC Date/Time DO NOT enter until pt leaves facility: 10/18/18 11:45
== END 2018-10-18 11:45 | disposition home health service (06) | DRG 378 ==
LOC: ED 14:43 → 2E 19:56 → SUATTDRO 19:56 → 2E 20:03

== ENCOUNTER 2019-04-09 19:52 | Inpatient (IN) ==
[~2019-04-09 19:52] MED LIST changes: -ACET-1256 PO; -AMLO-110 PO; +ETOMIDATE 2 MG/ML 20 ML VIAL IV ONE; -FAMO20TA11 PO; -IBUP-1050 PO; -LPR25 PO; -LVQ750 PO; +RAPID SEQUENCE INDUCTION BAG ONE; +SODIUM CHLORIDE 0.9% 10ML FLUSH IV ONE; +SODIUM CHLORIDE 0.9% INJ 10 ML VIAL IV ONE; +SUCCINYLCHOLINE CHLORIDE 20 MG/ML 10 ML VIAL IV ONE; -TAMS0.4C38 PO; +VECURONIUM BROMIDE 10 MG VIAL IV ONE; -ZCR20 PO
[2019-04-09] MEDS ORDERED: TRANEXAMIC ACID 1,000 MG in 0.9 % SODIUM CHLORIDE 100 ML IV STA (20:06)
[2019-04-09] MEDS ORDERED: DIPHTHERIA/TETANUS/PERTUSSIS 0.5 ML SYR/VIAL IM ONE (20:08)
[2019-04-09] MEDS ORDERED: SODIUM CHLORIDE 0.9% 250 ML IV PRN ×3 (20:12→21:20)
[2019-04-09] MEDS ORDERED: SODIUM CHLORIDE 0.9% 1000ML 1,000 ML IV SCH ×2 (20:15→23:15)
[2019-04-09 20:30] LABS: INR 1.2 (0.9-1.1); Prothrombin Time 12.3 Seconds (9.0-12.0)
[2019-04-09] MEDS ORDERED: LORazepam 2 MG/4 ML VIAL IV STA (20:30)
[2019-04-09] MEDS ORDERED: ETOMIDATE 2 MG/ML 20 ML VIAL IV STA (20:30)
[2019-04-09] MEDS ORDERED: VECURONIUM BROMIDE 10 MG in SYRINGE 0 ML IV STA (20:31)
[2019-04-09] MEDS ORDERED: SUCCINYLCHOLINE CHLORIDE 20 MG/ML 10 ML VIAL IV STA (20:32)
[2019-04-09] MEDS ORDERED: IOVERSOL 100ml IV PRN (20:37)
--- NOTE | 2019-04-09 20:37 | XRay Report ---
XR chest 1V portable HISTORY: 68 years-old Male trauma acute respiratory failure COMPARISON: Chest radiograph 10/15/2018 TECHNIQUE: Portable AP view of the chest FINDINGS: Endotracheal tube overlies the midline terminating 6 mm superior to the iris. Cardiac silhouette is enlarged. No overt pulmonary edema. Mild left basilar opacities suggest atelectasis. Lungs are hypoi nflated. No pneumothorax or large pleural effusion. Multiple contiguous acute displaced left-sided ri b fractures are noted, specifically within the posterior left sixth through 10th ribs Degenerative ch anges of the shoulders and spine. IMPRESSION: 1. Low-lying endotracheal tube terminates less than 1 cm superior to the iris. Retraction of a few centimeters with follow-up imaging recommended. 2. At least 5 contiguous acute displaced left-sided rib fractures meets diagnostic criteria for flail chest. 3. No pneumothorax identified. 4. Cardiomegaly. The above report was generated using voice recognition software. It may contain grammatical, syntax o r spelling errors. Electronically signed by: Brennen Su M.D. 04/09/2019 8:35 PM
[2019-04-09] MEDS ORDERED: PIPERACILLIN/TAZOBACTAM 4.5 GM/120 ML BAG IV ONE (20:43)
[2019-04-09] MEDS ORDERED: PIPERACILL/TAZOBAC CONSULT ACTIVE PRN (20:43)
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
[2019-04-09 21:06] LABS: Alanine Aminotransferase 36 U/L (12-78); Albumin Globulin Ratio 0.9 (0.9-2); Albumin Level 2.1 gm/dl (3.4-5.0); Alkaline Phosphatase 54 U/L (45-117); Aspartate Aminotransferase 38 U/L (15-37); BUN Creatinine Ratio 12.3 (10-20); Bilirubin,Total 0.4 mg/dl (0.2-1); Blood Urea Nitrogen 19 mg/dl (7-18); Calcium 6.9 mg/dl (8.5-10.1); Carbon Dioxide 17 mmol/L (21-32); Chloride 108 mmol/L (98-107); Creatine Kinase 263 U/L (39-308); Est GFR (African American) 52.5; Est GFR (Non-African American) 45.3; Globulin 2.4 gm/dl (2.5-4.0); Glucose 267 mg/dl (70-99); Potassium 7.2 mmol/L (3.5-5.1); Sodium 141 mmol/L (136-145); Total Protein 4.5 gm/dl (6.4-8.2); Troponin I 0.068 ng/ml (0-0.045)
[2019-04-09] MEDS ORDERED: ROCURONIUM BROMIDE 10 MG/ML 5 ML VIAL ONE (21:14)
[2019-04-09 21:16] LABS: Basophils # (auto) 0.03 K/uL (0-0.2); Basophils % (auto) 0.2 %; Eosinophils # (auto) 0.06 K/uL (0-0.5); Eosinophils % (auto) 0.4 %; Hematocrit (blood only) 34.5 % (42-52); Hemoglobin 11.6 g/dL (14.0-18.0); Immature Granulocytes # (auto) 0.05 K/uL (0.00-0.02); Immature Granulocytes % (auto) 0.4 %; Lymphocytes # (auto) 1.19 K/uL (1.2-3.4); Lymphocytes % (auto) 8.6 %; Mean Corpuscular Hemoglobin 31.9 pg (25-34); Mean Corpuscular Hgb Conc 33.6 g/dL (32-36); Mean Corpuscular Volume 94.8 fL (80-100); Monocytes # (auto) 0.73 K/uL (0.11-0.59); Monocytes % (auto) 5.3 %; Neutrophils # (auto) 11.81 K/uL (1.4-6.5); Neutrophils % (auto) 85.1 %; Platelet Count 130 K/uL (130-400); RDW Coefficient of Variation 14.9 % (11.5-14.5); RDW Standard Deviation 51.2 fL (36.4-46.3); Red Blood Count 3.64 M/uL (4.7-6.1); White Blood Count 13.87 K/uL (4.8-10.8)
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
[2019-04-09 21:26] LABS: iSTAT Creatinine 1.5 mg/dl (0.6-1.3); iSTAT Hemoglobin 10.9 g/dl (14.0-18.0); iSTAT Ionized Calcium 0.99 mmol/l (1.12-1.32); iSTAT Potassium 4.3 mEq/L (3.3-5.0)
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
[2019-04-09] MEDS ORDERED: MIDAZOLAM HCL 1 MG/ML 2ML VIAL ONE (22:23)
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
[2019-04-09] MEDS ORDERED: ICU PROTOCOL FOR HYPERGLYCEMIA PRN (23:10)
[2019-04-09] MEDS ORDERED: ONDANSETRON INJ 2 MG/ML 2 ML VIAL IV PRN (23:10)
[2019-04-09] MEDS ORDERED: ACETAMINOPHEN 1,000 MG/100 ML VIAL IV PRN (23:10)
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
[2019-04-09 23:31] LABS: iSTAT Allen Test Pass; iSTAT Arterial Blood Gas HCO3 20 meg/L (19-24); iSTAT Arterial Blood Gas pCO2 49 mmHg (35-46); iSTAT Arterial Blood Gas pH 7.22 (7.35-7.45); iSTAT Arterial Blood Gas pO2 274 mmHg (80-95); iSTAT Carbon Dioxide 21 mEq/l (24-31); iSTAT FiO2 80 %; iSTAT Hematocrit 38 % (42-52); iSTAT Hemoglobin 12.9 g/dl (14.0-18.0); iSTAT Potassium 3.7 mEq/L (3.3-5.0); iSTAT Site R Radial; iSTAT Sodium 142 mEq/L (135-144)
--- NOTE | 2019-04-09 23:31 | Progress Note ---
Date of Service April 09, 2019 Pathologist Manager Mobility Note: Notified by blood bank at 2105 of massive transfusion that was called (blood type A+, spleen laceration, HGB 11.6, PLT 130K). At that point the patient had apparently received 4 PRBCS and 1 PLT on an emergent basis. Current platelet stock was 0. The [place] [facility] had already been called for an emergency run for platelets and they were on the way to [facility]. Called blood bank at 2137 to check on progress. The patient was noted to have an antibody, likely January, Hodgson A or Gnosticist but work up was not complete. Patient either in OR or on way into OR. Called at 2300. Patient had received 7 PRBC, 3 FFP and 1 platelet. Platelet stock was at 1 but it was planned that this patient would be taking this platelet. [facility] was performing another emergency run. Per OR note, plan was to try to transfer to [facility] if possible. The antibody was identified as W[place]ly. The previous units given emergently had been checked and 1 unit was January positive. I told blood bank staff (Nadege) to notify that the floor that the patient had received one Waverly incompatible unit and there was some potential risk for a hemolytic transfusion reaction but the risk was uncertain due to the hemorrhage that was occurring. Regardless, the patient should be monitored for evidence of hemolysis.
--- NOTE | 2019-04-09 23:34 | Anesthesiology Progress Note ---
Date of Service April 09, 2019 Anesthesia Post Procedure Vital Signs Vital Signs: Temp Pulse Resp BP Pulse Ox 04/09/19 21:15 149 H 67/53 L 99 04/09/19 21:10 149 H 77/53 L 97 04/09/19 21:05 150 H 71/52 L 96 04/09/19 21:00 150 H 67/53 L 92 04/09/19 20:55 153 H 69/54 L 87 L 04/09/19 20:50 86/58 L 91 04/09/19 20:25 145 H 117/69 99 04/09/19 20:20 140 H 103/57 L 96 04/09/19 20:18 139 H 83/61 L 100 04/09/19 20:15 138 H 32 H 81/64 L 97 04/09/19 20:10 140 H 27 H 92/55 L 100 04/09/19 20:04 144 H 16 80/38 L 100 04/09/19 20:00 142 H 21 83/55 L 04/09/19 19:57 169 H 48 H 96 04/09/19 19:40 39.6 C H 148 H 27 H 83/55 L 88 L Transfer of Care Handoff Completed per policy Notes Mental Status: see notes below (Intubated and sedated at baseline) Patient Amnestic to Procedure: Yes Nausea / Vomiting: see Notes below (Unable to ssess) Pain: adequately controlled Airway Patency, RR, SpO2: see Notes below (Intubated) BP & HR: stable & adequate Hydration State: stable & adequate Anesthetic Complications: no major complications apparent, see Notes below (Pt to be immediately transferred) and Pt Satisfied with anesthetic care
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
[2019-04-09] MEDS ORDERED: NOREPINEPHRINE BIT INJ 8 MG in DEXTROSE 5% 500 ML IV PRN (23:45)
[2019-04-09] MEDS ORDERED: propofoL 1,000 MG/100 ML VIAL IV PRN (23:45)
[2019-04-09 23:49] LABS: Hematocrit (blood only) 40.8 % (42-52); Hemoglobin 14.1 g/dL (14.0-18.0); Mean Corpuscular Hemoglobin 31.9 pg (25-34); Mean Corpuscular Volume 92.3 fL (80-100); RDW Coefficient of Variation 14.6 % (11.5-14.5); Red Blood Count 4.42 M/uL (4.7-6.1)
[2019-04-09] MEDS ORDERED: fentaNYL citrate 100 MCG/2 ML VIAL ONE (23:52)
[2019-04-09] MEDS ORDERED: fentaNYL citrate 100 MCG/2 ML VIAL IV STA (23:52)
[2019-04-09] MEDS ORDERED: NOREPINEPHRINE (Adult) 8 MG in DEXTROSE 5% 500 ML IV PRN (23:54)
[2019-04-09] MEDS ORDERED: PROPOFOL IV EMULSION 10 MG/ML 100 ML VIAL IV ONE (23:55)
[2019-04-09 23:59] LABS: INR 1.2 (0.9-1.1); Partial Thromboplastin Ratio 0.9; Partial Thromboplastin Time 25.6 Seconds (21.0-31.0); Prothrombin Time 12.1 Seconds (9.0-12.0)
[2019-04-10] MEDS ORDERED: CEFAZOLIN 2000MG 2,000 MG/15 ML SYR IV SCH
[2019-04-10 00:10] LABS: Albumin Level 2.6 gm/dl (3.4-5.0); BUN Creatinine Ratio 11.5 (10-20); Calcium 7.7 mg/dl (8.5-10.1); Creatinine Clr Calc Pharmacy 50.6 ml/min; Est GFR (African American) 41.9; Est GFR (Non-African American) 36.1; Magnesium 1.7 mg/dl (1.8-2.4)
[2019-04-10 00:13] LABS: Bilirubin Direct 0.2 mg/dl (0-0.2); Bilirubin,Total 0.7 mg/dl (0.2-1); Phosphorus 4.6 mg/dl (2.5-4.9); Total Protein 4.9 gm/dl (6.4-8.2)
[2019-04-10 00:23] LABS: Basophils # (auto) 0.03 K/uL (0-0.2); Basophils % (auto) 0.2 %; Eosinophils # (auto) 0.01 K/uL (0-0.5); Eosinophils % (auto) 0.1 %; Immature Granulocytes # (auto) 0.05 K/uL (0.00-0.02); Immature Granulocytes % (auto) 0.4 %; Lymphocytes # (auto) 0.67 K/uL (1.2-3.4); Lymphocytes % (auto) 4.8 %; Mean Corpuscular Hgb Conc 34.6 g/dL (32-36); Mean Platelet Volume 10.4 fL (7.4-10.4); Monocytes # (auto) 1.64 K/uL (0.11-0.59); Monocytes % (auto) 11.7 %; Neutrophils % (auto) 82.8 %; Platelet Count 96 K/uL (130-400); Platelet Estimate Decreased (Normal)
[2019-04-10] MEDS ORDERED: MAGNESIUM SULFATE / D5W 1 GM/100 ML BAG IV ONE (00:54)
[2019-04-10 01:09] LABS: Appearance Urine Cloudy (Clear); Bacteria Urine Automated Negative (Negative); Bilirubin Urine Negative (Negative); Blood Urine 3+ (Negative); Color Urine Yellow; Epithelial Cell Urine Auto 20-30 /lpf (0-5); Glucose Urine UA Trace (Negative); Ketones Urine Negative (Negative); Leukocyte Esterase Urine Negative (Negative); Nitrite Urine Negative (Negative); Protein Urine 2+ (Negative); RBC Urine Automated >30 /hpf (0-4); Urobilinogen Urine Negative (Negative); WBC Urine Automated >30 /hpf (0-5); pH Urine 5.5 (4.5-7.5)
--- NOTE | 2019-04-10 01:19 | Critical Care Consultation ---
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 Cancelled Toxic Granulation Cancelled Toxic Vacuolation Cancelled Dohle Bodies Cancelled Mary Beth Rods Cancelled Platelet Estimate Cancelled Hypogranular Platelets Cancelled Clumped Platelets Cancelled Giant Platelets Cancelled Platelet Satelliting Cancelled RBC Morphology Cancelled Polychromasia Cancelled Hypochromasia Cancelled Poikilocytosis Cancelled Basophilic Stippling Cancelled Anisocytosis Cancelled Microcytosis Cancelled Macrocytosis Cancelled Spherocytes Cancelled Pappenheimer Bodies Cancelled Sickle Cells Cancelled Target Cells Cancelled Tear Drop Cells Cancelled Ovalocytes Cancelled Stomatocytes Cancelled [place] Bodies Cancelled Echinocytes Cancelled Acanthocytes (Spur) Cancelled Rouleaux Cancelled RBC Agglutinates Cancelled Schistocytes Cancelled RBC Morph Comment Cancelled Sezary Cell Cancelled PT (9.0-12.0) Seconds INR (0.9-1.1) APTT (21.0-31.0) Seconds PTT Ratio Sample Site POC pH (7.35-7.45) POC pCO2 (35-46) mmHg POC pO2 (80-95) mmHg POC HCO3 (19-24) stacy/L POC Base Excess (-9-1.8) stacy/L Willy Test O2 Delivery Device POC O2 Rate POC FiO2 % Tidal Volume PEEP POC Sodium (135-144) mEq/L Sodium 141 (136-145) mmol/L POC Potassium (3.3-5.0) mEq/L Potassium 7.2 H* (3.5-5.1) mmol/L POC Chloride (101-112) mEq/L Chloride 108 H (98-107) mmol/L Carbon Dioxide 17 L (21-32) mmol/L POC Total CO2 (24-31) mEq/l Anion Gap 16.0 H (3-11) POC Anion Gap (16-25) mmol/L POC BUN (7-18) mg/dl BUN 19 H (7-18) mg/dl Creatinine 1.55 H (0.6-1.4) mg/dl POC Creatinine (0.6-1.3) mg/dl Est Cr Clr Drug Dosing Not Reportable Est GFR ( Amer) 52.5 Est GFR (Non-Af Amer) 45.3 BUN/Creatinine Ratio 12.3 (10-20) Glucose 267 H (70-99) mg/dl POC Glucose (other) (70-99) mg/dl Lactate (0.4-2.0) mmol/L Calcium 6.9 L (8.5-10.1) mg/dl POC Ioniz Calcium Luc (1.12-1.32) mmol/l Phosphorus (2.5-4.9) mg/dl Magnesium (1.8-2.4) mg/dl Total Bilirubin 0.4 (0.2-1) mg/dl Direct Bilirubin (0-0.2) mg/dl AST 38 H (15-37) U/L ALT 36 (12-78) U/L Alkaline Phosphatase 54 (45-117) U/L Total Creatine Kinase 263 (39-308) U/L Troponin I 0.068 H* (0-0.045) ng/ml Total Protein 4.5 L (6.4-8.2) gm/dl Albumin 2.1 L (3.4-5.0) gm/dl Globulin 2.4 L (2.5-4.0) gm/dl Albumin/Globulin Ratio 0.9 (0.9-2) Lipase (73-393) U/L Urine Color Urine Appearance Urine pH Ur Specific [place] Urine Protein Urine Glucose (UA) Urine Ketones Urine Blood Urine Nitrite Urine Bilirubin Urine Urobilinogen Ur Leukocyte Esterase Nasal Screen MRSA (PCR) Ethyl Alcohol mg/dL (0-3) mg/dl Hepatitis C Ab Screen Blood Type A Positive Antibody Screen POSITIVE A Antibody Identification Anti-K Antibody ID Comment Pending Crossmatch See Detail 04/09/19 Range/Units 20:10 WBC RBC Hgb POC Hgb (14.0-18.0) g/dl Hct POC Hct (42-52) % MCV MCH MCHC RDW Std Deviation RDW Coeff of Mesfin Plt Count MPV Immature Gran % (Auto) Neut % (Auto) Lymph % (Auto) [place] % (Auto) Eos % (Auto) Baso % (Auto) Immature Gran # (Auto) Neut # (Auto) Lymph # (Auto) [place] # (Auto) Eos # (Auto) Baso # (Auto) Absolute Nucleated RBC Nucleated RBC % (auto) Neutrophils % (Manual) Band Neutrophils % Lymphocytes % (Manual) Prolymphocyte % Reactive Lymphs % (Man) Monocytes % (Manual) Eosinophils % (Manual) Basophils % (Manual) Metamyelocytes % (Man) Myelocytes % (Man) Promyelocytes % (Man) Blast Cells % (Manual) Plasma Cell % (Manual) Other Cells % Nucleated RBC % Neutrophils # (Manual) Band Neutrophils # Total Absolute Neuts Lymphocytes # (Manual) Prolymphocyte # Reactive Lymphs # Total Abs Lymphocytes Monocytes # (Manual) Eosinophils # (Manual) Basophils # (Manual) Metamyelocytes # (Man) Myelocytes # (Manual) Promyelocytes # (Man) Blast Cells # (Man) Plasma Cell # (Manual) Other Cells # Nucleated RBCs # (Man) Hypersegmented Neuts Hyposegmented Neuts Hypogranular Neuts Large Granular Lymphs # Lrg Granular Lymphs Hairy Cells Smudge Cells Toxic Granulation Toxic Vacuolation Dohle Bodies Mary Beth Rods Platelet Estimate Hypogranular Platelets Clumped Platelets Giant Platelets Platelet Satelliting RBC Morphology Polychromasia Hypochromasia Poikilocytosis Basophilic Stippling Anisocytosis Microcytosis Macrocytosis Spherocytes Pappenheimer Bodies Sickle Cells Target Cells Tear Drop Cells Ovalocytes Stomatocytes [place] Bodies Echinocytes Acanthocytes (Spur) Rouleaux RBC Agglutinates Schistocytes RBC Morph Comment Sezary Cell PT 12.3 H (9.0-12.0) Seconds INR 1.2 H (0.9-1.1) APTT (21.0-31.0) Seconds PTT Ratio Sample Site POC pH (7.35-7.45) POC pCO2 (35-46) mmHg POC pO2 (80-95) mmHg POC HCO3 (19-24) stacy/L POC Base Excess (-9-1.8) stacy/L Willy Test O2 Delivery Device POC O2 Rate POC FiO2 % Tidal Volume PEEP POC Sodium (135-144) mEq/L Sodium (136-145) mmol/L POC Potassium (3.3-5.0) mEq/L Potassium (3.5-5.1) mmol/L POC Chloride (101-112) mEq/L Chloride (98-107) mmol/L Carbon Dioxide (21-32) mmol/L POC Total CO2 (24-31) mEq/l Anion Gap (3-11) POC Anion Gap (16-25) mmol/L POC BUN (7-18) mg/dl BUN (7-18) mg/dl Creatinine (0.6-1.4) mg/dl POC Creatinine (0.6-1.3) mg/dl Est Cr Clr Drug Dosing Est GFR ( Amer) Est GFR (Non-Af Amer) BUN/Creatinine Ratio (10-20) Glucose (70-99) mg/dl POC Glucose (other) (70-99) mg/dl Lactate (0.4-2.0) mmol/L Calcium (8.5-10.1) mg/dl POC Ioniz Calcium Luc (1.12-1.32) mmol/l Phosphorus (2.5-4.9) mg/dl Magnesium (1.8-2.4) mg/dl Total Bilirubin (0.2-1) mg/dl Direct Bilirubin (0-0.2) mg/dl AST (15-37) U/L ALT (12-78) U/L Alkaline Phosphatase (45-117) U/L Total Creatine Kinase (39-308) U/L Troponin I (0-0.045) ng/ml Total Protein (6.4-8.2) gm/dl Albumin (3.4-5.0) gm/dl Globulin (2.5-4.0) gm/dl Albumin/Globulin Ratio (0.9-2) Lipase (73-393) U/L Urine Color Urine Appearance Urine pH Ur Specific [place] Urine Protein Urine Glucose (UA) Urine Ketones Urine Blood Urine Nitrite Urine Bilirubin Urine Urobilinogen Ur Leukocyte Esterase Nasal Screen MRSA (PCR) Ethyl Alcohol mg/dL (0-3) mg/dl Hepatitis C Ab Screen Blood Type Antibody Screen Antibody Identification Antibody ID Comment Crossmatch Coding Level of Care Code New Pt Critical Care 1st 30-74 mins Patient Type New Diagnoses Hemorrhagic shock R57.8 Hypovolemic shock R57.1 Laceration of spleen S36.039A Encounter type: initial encounter Time Spent (min) 65 (1) Laceration of spleen Encounter type: initial encounter Qualified Code(s): S36.039A - Unspecified laceration of spleen, initial encounter
--- NOTE | 2019-04-10 01:40 | Procedure Note ---
Procedure Note Date of Service April 10, 2019 ARTERIAL LINE PROCEDURE NOTE: Procedure: Arterial Line Placement Attending: Dr. Andra Matson MD Indication: Monitoring on Pressors Anesthesia: None Emergency verbal consent was obtained. Indication, risks, and benefits were explained at length to was present at bedside. A time-out was completed verifying correct patient, procedure, site, positioning, and implant(s) or special equipment if applicable. Allens test was performed to ensure adequate perfusion. Patients right wrist was prepped and draped in the usual sterile fashion. Ultrasound guidance was used to aid needle placement. A 20g Arrow arterial line was introduced into the right radial artery. Catheter was threaded, and the needle was removed with appropriate pulsatile blood return. Good waveform was observed on the monitor. The patient tolerated the procedure well. Confirmation of placement with ultrasound. Blood Loss: Minimal Complications: None Coding CPT Codes Tubes, Drains, and Vasc Access - Tubes, Drains, and Vasc Access: Place Catheter In Artery ([id number]) Ventilator Management - Ventilator Managment: Ventilation assist and management; Hospital inpt/obs, initial day ([id number]) Pulmonary/Thoracic - Pulmonary and Thoracic: US, Chest, real time with imaging documentation ([id number])
[2019-04-10 04:45] LABS: iSTAT Arterial Blood Gas HCO3 21 meg/L (19-24); iSTAT Arterial Blood Gas pCO2 55 mmHg (35-46); iSTAT Arterial Blood Gas pH 7.19 (7.35-7.45); iSTAT Arterial Blood Gas pO2 382 mmHg (80-95); iSTAT Carbon Dioxide 23 mEq/l (24-31)
--- NOTE | 2019-04-10 07:19 | XRay Report ---
XR chest 1V portable CLINICAL HISTORY: post op COMPARISON STUDY: 04/09/2019 8:14 PM FINDINGS: Endotracheal tube 4 cm above the iris. Lungs remain grossly clear. Mild fullness of the s uperior mediastinum possibly related to the AP lordotic film imaging technique. Slight prominence of pulmonary vasculature. Nasogastric tube within the stomach. Left-sided rib fractures are again noted. IMPRESSION: 1. Endotracheal tube 4 cm above the iris. 2. Nasogastric tube within the mid stomach. 3. Lungs are grossly clear. The above report was generated using voice recognition software. It may contain grammatical, syntax or spelling errors. Electronically signed by: David Clark M.D. 04/10/2019 7:18 AM
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
== END 2019-04-10 02:11 | disposition short-term general hospital (02) | DRG 957 ==
LOC: ED 19:52 → 1E 21:15 → ASU 21:15 → 1E 23:10

== ENCOUNTER 2023-01-21 08:42 | Observation (INO) ==
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
[2023-01-21] MEDS ORDERED: cefTRIAXone SODIUM 2,000 MG/70 ML BAG IV STA (08:55)
[2023-01-21] MEDS ORDERED: SODIUM CHLORIDE 0.9% 500 ML IV SCH (09:00)
[2023-01-21 09:57] LABS: Basophils # (auto) 0.12 K/uL (0-0.2); Basophils % (auto) 1.4 %; Eosinophils # (auto) 0.38 K/uL (0-0.50); Eosinophils % (auto) 4.3 %; Hematocrit (blood only) 42.5 % (42.0-52.0); Hemoglobin 14.2 g/dl (14.0-18.0); Immature Granulocytes # (auto) 0.04 K/uL (0.01-0.20); Immature Granulocytes % (auto) 0.5 %; Lymphocytes # (auto) 1.82 K/uL (1.2-3.4); Lymphocytes % (auto) 20.7 %; Mean Corpuscular Hemoglobin 33.4 pg (25.0-34.0); Mean Corpuscular Hgb Conc 33.4 g/dL (32.0-36.0); Mean Platelet Volume 10.7 fL (9.4-12.4); Monocytes # (auto) 0.94 K/uL (0.11-0.59); Monocytes % (auto) 10.7 %; Neutrophils # (auto) 5.49 K/uL (1.40-6.50); Neutrophils % (auto) 62.4 %; Platelet Count 239 K/uL (130-400); RDW Coefficient of Variation 13.8 % (11.5-14.5); RDW Standard Deviation 50.1 fL (36.4-46.3); Red Blood Count 4.25 M/uL (4.70-6.10); White Blood Count 8.79 K/ul (4.8-10.8)
[2023-01-21 09:58] LABS: Appearance Urine Cloudy (Clear); Bacteria Urine Automated 4+ (Negative); Bilirubin Urine Negative (Negative); Blood Urine Trace (Negative); Color Urine Yellow; Glucose Urine UA Negative (Negative); Ketones Urine Negative (Negative); Leukocyte Esterase Urine 3+ (Negative); Nitrite Urine Positive (Negative); Protein Urine Negative (Negative); RBC Urine Automated 0-4 /hpf (0-4); Specific Gravity Urine 1.014 (1.000-1.030); Urobilinogen Urine Negative (Negative); WBC Urine Automated >30 /hpf (0-5)
[2023-01-21 10:01] LABS: Albumin Level 3.9 gm/dl (3.4-5.0); Bilirubin,Total 0.8 mg/dl (0.2-1.0); Magnesium 1.8 mg/dl (1.7-2.4); Potassium 4.9 mmol/L (3.5-5.1)
[2023-01-21 10:07] LABS: Albumin Globulin Ratio 1.1 (0.9-2); BUN Creatinine Ratio 21.1 (10-20); Creatinine Clr Calc Pharmacy 94.7 ml/min; Est GFR (African American) 98.5 ml/min; Globulin 3.7 gm/dl (2.5-4.0); Total Protein 7.6 gm/dl (6.0-8.3)
--- NOTE | 2023-01-21 10:58 | CT Scan Report ---
CT thoracic spine wo con CLINICAL HISTORY: Trauma TECHNIQUE: Multidetector row helical CT of the thoracic spine was performed without administration of intravenous contrast. Coronal and sagittal reformations were obtained. Automated dose lowering techn iques and/or adjustment according to patient size were utilized for this exam. CT DOSE: 3860.90 mGy.cm Comparison: None available at the time of this dictation. FINDINGS: No acute fractures are identified. Degenerative changes are noted in the visualized spine. Dextroscol iosis is seen. Surrounding soft tissues are unremarkable. IMPRESSION: Degenerative changes are seen. No evidence of acute fracture. ACT 112: Negative or not required by law. Electronically signed by: Donavan Darling M.D. 01/21/2023 10:57 AM
--- NOTE | 2023-01-21 11:18 | CT Scan Report ---
LUMBAR SPINE CT CT DOSE: HISTORY: Low back pain. Trauma TECHNIQUE: Multiaxial CT images of the lumbar spine were performed and reformatted in the sagittal an d coronal plane without the use of contrast. A dose lowering technique was utilized adhering to the principles of ALARA. COMPARISON: Lumbar spine MRI 03/02/2022. FINDINGS: There is a chronic mild superior endplate compression deformity again noted at L2, unchange d. Mild anterior wedging at L1 is also unchanged. No acute fractures within the lumbar spine. No subl uxation. There is straightening of the lumbar spine. There are severe degenerative disc disease from L2 through S1 with large endplate osteophytes and sclerosis. This is consistent with chronic degenera tive change. There are yrtc-[id number] facet degenerative changes within the lumbar spine. Paraverte bral soft tissues are unremarkable. Multilevel moderate central canal narrowing again noted within th e lower lumbar spine. Probable 1 cm bone island within the L2 vertebral body. No acute fractures iden tified within the sacrum. IMPRESSION: 1. No acute fractures within the lumbar spine. 2. Chronic L1 and L2 compression deformities again noted. 3. Degenerative changes as described above. ACT 112: Negative or not required by law. Electronically signed by: Arpit De aL Cruz M.D. 01/21/2023 11:15 AM
--- NOTE | 2023-01-21 11:29 | CT Scan Report ---
HEAD CT NONCONTRAST CT DOSE: HISTORY: Fall. Closed head injury. TECHNIQUE: Multiaxial CT images of the head were performed without the use of intravenous contrast. A utomated exposure control was utilized for this study. A dose lowering technique was utilized adheri ng to the principles of ALARA. Comparison: Head CT 02/04/2022. Findings: The paranasal sinuses and mastoid air cells are clear. No acute fractures identified within the calvarium or skull base. Prior right frontotemporal craniotomy with underlying encephalomalacia within the right frontal lobe. This remains unchanged. 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 Th ere is no mass, hematoma, midline shift, or acute infarct. Stable ventricular dilatation again noted. Impression: No significant change compared to the prior study. No acute intracranial abnormality. Chronic and pos toperative changes again noted. ACT 112: Negative or not required by law. Electronically signed by: Arpit De La Cruz M.D. 01/21/2023 11:28 AM
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
--- NOTE | 2023-01-21 14:19 | Electrocardiogram Report ---
Test Reason : Blood Pressure : / mmHG Vent. Rate : 056 BPM Atrial Rate : 056 BPM P-R Int : 202 ms QRS Dur : 088 ms QT Int : 430 ms P-R-T Axes : 063 059 026 degrees QTc Int : 414 ms Sinus bradycardia with occasional Premature ventricular complexes Poor R wave progression, consider anterior GA vs. lead placement vs. LVH Abnormal ECG When compared with ECG of 04-FEB-2022 19:22, Premature ventricular complexes are now Present Confirmed by Farhat Cabral ([id number]) on 01/21/2023 2:19:39 PM Referred By: REFERRED SELF Confirmed By:Farhat Cabral
[2023-01-21] MEDS ORDERED: ONDANSETRON INJ 2 MG/ML 2 ML VIAL IV PRN (16:42)
[2023-01-21] MEDS ORDERED: POLYETHYLENE (MIRALAX) 17 GM PACK PO PRN (16:42)
[2023-01-21] MEDS: METHOCARBAMOL 750 MG TABLET PO SCH ×2 (18:08→20:44)
[2023-01-21] MEDS: GABAPENTIN 300 MG CAP PO SCH ×2 (18:12→20:44)
[2023-01-21] MEDS: ACETAMINOPHEN 325 MG TAB PO PRN (19:31)
[2023-01-21] MEDS: METOPROLOL TARTRATE 50 MG TAB PO SCH (20:44)
[2023-01-21] MEDS ORDERED: COUGH DROP (SUGAR FREE) LOZ 24 LOZ/1 BOX BUCCAL ONE (22:19)
[2023-01-22 07:13] LABS: Basophils # (auto) 0.09 K/uL (0-0.2); Basophils % (auto) 1.1 %; Eosinophils # (auto) 0.39 K/uL (0-0.50); Eosinophils % (auto) 4.9 %; Hematocrit (blood only) 39.8 % (42.0-52.0); Hemoglobin 13.3 g/dl (14.0-18.0); Immature Granulocytes # (auto) 0.02 K/uL (0.01-0.20); Immature Granulocytes % (auto) 0.3 %; Lymphocytes # (auto) 1.84 K/uL (1.2-3.4); Lymphocytes % (auto) 23.1 %; Mean Corpuscular Hemoglobin 33.4 pg (25.0-34.0); Mean Corpuscular Hgb Conc 33.4 g/dL (32.0-36.0); Mean Platelet Volume 10.7 fL (9.4-12.4); Monocytes # (auto) 0.98 K/uL (0.11-0.59); Monocytes % (auto) 12.3 %; Neutrophils # (auto) 4.65 K/uL (1.40-6.50); Neutrophils % (auto) 58.3 %; Platelet Count 225 K/uL (130-400); RDW Coefficient of Variation 13.7 % (11.5-14.5); RDW Standard Deviation 50.3 fL (36.4-46.3); Red Blood Count 3.98 M/uL (4.70-6.10); White Blood Count 7.97 K/ul (4.8-10.8)
[2023-01-22 07:28] LABS: BUN Creatinine Ratio 20.5 (10-20); Calcium 9.5 mg/dl (8.6-10.3); Creatinine Clr Calc Pharmacy 96.9 ml/min; Est GFR (African American) 99.5 ml/min; Est GFR (Non-African American) 85.8 ml/min; Potassium 4.2 mmol/L (3.5-5.1)
[2023-01-22] MEDS: ACETAMINOPHEN 325 MG TAB PO PRN (08:09)
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
[2023-01-22] MEDS: GABAPENTIN 300 MG CAP PO SCH ×2 (08:33→13:25)
[2023-01-22] MEDS: METOPROLOL TARTRATE 50 MG TAB PO SCH (08:33)
[2023-01-22] MEDS: METHOCARBAMOL 750 MG TABLET PO SCH ×2 (08:35→13:25)
[2023-01-22] MEDS ORDERED: PANTOprazole 40 MG TAB PO SCH (09:00)
[2023-01-22] MEDS ORDERED: FINASTERIDE 5 MG TAB PO SCH (09:00)
[2023-01-22] MEDS ORDERED: ATORVASTATIN 10 MG TAB PO SCH (09:00)
[2023-01-22] MEDS ORDERED: MICONAZOLE NITRATE POWDER 85 GM EXT SCH (09:00)
[2023-01-22] MEDS ORDERED: TAMSULOSIN HCL 0.4 MG CAP PO SCH (09:00)
[2023-01-22] MEDS ORDERED: lisinopril 5 MG TAB PO SCH (09:00)
[2023-01-22] MEDS ORDERED: ASPIRIN 81 MG ECTAB PO SCH (09:00)
[2023-01-22] MEDS ORDERED: cefTRIAXone SODIUM 2,000 MG in DEXTROSE 5% 50 ML IV SCH (13:00)
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
== END 2023-01-22 15:53 | disposition home or self-care (01) ==
LOC: ED 08:42 → EDINP 08:42 → SUATTDRO 12:53 → 3N 13:44

== ENCOUNTER 2023-03-16 10:28 | Inpatient (IN) ==
[2023-03-16 12:28] LABS: Basophils # (auto) 0.11 K/uL (0.00-0.20); Basophils % (auto) 0.9 %; Eosinophils # (auto) 0.26 K/uL (0.00-0.50); Eosinophils % (auto) 2.2 %; Immature Granulocytes # (auto) 0.05 K/uL (0.01-0.20); Immature Granulocytes % (auto) 0.4 %; Lymphocytes # (auto) 1.19 K/uL (1.20-3.40); Mean Corpuscular Hgb Conc 33.3 g/dL (32.0-36.0); Mean Corpuscular Volume 99.1 fL (80.0-100.0); Monocytes # (auto) 1.07 K/uL (0.11-0.59); Neutrophils # (auto) 9.27 K/uL (1.40-6.50); Neutrophils % (auto) 77.5 %; Platelet Count 388 K/uL (130-400); RDW Coefficient of Variation 13.1 % (11.5-14.5); RDW Standard Deviation 47.8 fL (36.4-46.3); Red Blood Count 4.24 M/uL (4.70-6.10); White Blood Count 11.95 K/ul (4.8-10.8)
--- NOTE | 2023-03-16 12:30 | CT Scan Report ---
CT SCAN OF THE BRAIN WITHOUT IV CONTRAST CLINICAL HISTORY: Fall. COMPARISON STUDY: CT of the brain dated 01/21/2023. TECHNIQUE: Unenhanced axial CT scan of the brain is performed from the vertex to the skull base. A do se lowering technique was utilized adhering to the principles of ALARA. CT DOSE: 1100.35 mGy.cm FINDINGS: Brain parenchyma: Surgical clips are noted in the suprasellar region. A large focus of right frontal encephalomalacia is unchanged and consistent with remote insult. A small chronic infarct is seen in t he high left frontal lobe. There is age-related involutional change noting moderate subcortical and p eriventricular microangiopathic disease. There is no hemorrhage, mass effect, or evidence of acute te rritorial ischemia by CT criteria. Jackson-white matter differentiation is preserved. No extra-axial flu id collection is seen. Ventricles, sulci, cisterns: Prominent secondary to involutional change. Megacisterna magna is incide ntally noted. Intracranial vasculature: There is atherosclerotic calcification of the cavernous carotid arteries. Calvarium: There is post surgical change from right-sided craniotomy. The skeletal structures are ost eopenic. No depressed calvarial fracture is seen. Sinuses and mastoids: There is mild mucosal thickening within the maxillary antra. The remaining para nasal sinuses are clear. The mastoid air cells are well pneumatized. Orbits: The bony orbits are grossly intact. IMPRESSION: Chronic and postsurgical change as above with no hemorrhage, mass effect, or evidence of acute territorial ischemia by CT criteria. ACT 112: Negative or not required by law. Electronically signed by: Scout Hutchison M.D. 03/16/2023 12:27 PM
[2023-03-16 12:32] LABS: Albumin Globulin Ratio 0.9 (0.9-2); Albumin Level 3.7 gm/dl (3.4-5.0); BUN Creatinine Ratio 34.8 (10-20); Bilirubin,Total 0.3 mg/dl (0.2-1.0); Calcium 9.8 mg/dl (8.6-10.3); Creatinine Clr Calc Pharmacy 97.8 ml/min; Est GFR (Non-African American) 82.8 ml/min; Globulin 4.1 gm/dl (2.5-4.0); Total Protein 7.8 gm/dl (6.0-8.3)
--- NOTE | 2023-03-16 12:57 | XRay Report ---
SINGLE VIEW CHEST CLINICAL HISTORY: Fall. Cellulitis. FINDINGS: 2 AP, portable, upright chest radiographs are compared to study dated 02/04/2022. Correlatio n is made with chest CT dated 04/09/2019. The heart is enlarged noting atherosclerotic calcification of the thoracic aorta. The pulmonary vasculature is noncongested. Chronic interstitial thickening sim ilar to previous. There is bibasilar scarring/atelectasis. The lungs and pleural spaces are otherwise clear. No pneumothorax is seen. The skeletal structures are osteopenic. There are chronic/healed lef t-sided rib fractures. IMPRESSION: Cardiomegaly with no active disease in the chest. ACT 112: Negative or not required by law. Electronically signed by: Scout Hutchison M.D. 03/16/2023 12:55 PM
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
[2023-03-16] MEDS ORDERED: cefTRIAXone SODIUM 2,000 MG/70 ML BAG IV STA (13:44)
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
[2023-03-16 14:49] LABS: C Reactive Protein 4.76 mg/dl (0-0.5)
[2023-03-16] MEDS ORDERED: ACETAMINOPHEN 1,000 MG/100 ML VIAL IV STA (15:48)
[2023-03-16] MEDS ORDERED: METOPROLOL TARTRATE 50 MG TAB PO STA (15:51)
[2023-03-16] MEDS ORDERED: GABAPENTIN 300 MG CAP PO STA (15:51)
[2023-03-16] MEDS ORDERED: lisinopril 5 MG TAB PO STA (15:51)
[2023-03-16] MEDS ORDERED: LIDOCAINE 5% 1 PATCH TD PRN (17:39)
[2023-03-16] MEDS ORDERED: INFLUENZA VACCINE HIGH-DOSE (HD-IIV4) PF 65+ 0.7mL SYR IM ONE (21:00)
[2023-03-16] MEDS: ACETAMINOPHEN 325 MG TAB PO PRN (21:36)
[2023-03-16] MEDS: GABAPENTIN 300 MG CAP PO SCH (21:37)
[2023-03-16] MEDS: ENOXAPARIN INJ 40 MG/0.4 ML SYR SQ SCH (21:37)
[2023-03-16] MEDS: METOPROLOL TARTRATE 50 MG TAB PO SCH (21:38)
[2023-03-16] MEDS: METHOCARBAMOL 750 MG TABLET PO SCH (21:38)
[2023-03-16] MEDS ORDERED: Nursing to Pharmacy Communication SCH (23:30)
[2023-03-17 07:42] LABS: Basophils % (auto) 0.9 %; Eosinophils # (auto) 0.25 K/uL (0.00-0.50); Eosinophils % (auto) 2.3 %; Hematocrit (blood only) 36.6 % (42.0-52.0); Hemoglobin 12.4 g/dl (14.0-18.0); Immature Granulocytes # (auto) 0.05 K/uL (0.01-0.20); Immature Granulocytes % (auto) 0.5 %; Lymphocytes % (auto) 12.7 %; Mean Corpuscular Hemoglobin 33.2 pg (25.0-34.0); Mean Corpuscular Hgb Conc 33.9 g/dL (32.0-36.0); Mean Corpuscular Volume 97.9 fL (80.0-100.0); Mean Platelet Volume 10.1 fL (9.4-12.4); Monocytes % (auto) 12.7 %; Neutrophils # (auto) 7.83 K/uL (1.40-6.50); Neutrophils % (auto) 70.9 %; Platelet Count 375 K/uL (130-400); RDW Coefficient of Variation 13.1 % (11.5-14.5); RDW Standard Deviation 46.9 fL (36.4-46.3); Red Blood Count 3.74 M/uL (4.70-6.10); White Blood Count 11.03 K/ul (4.8-10.8)
[2023-03-17 07:56] LABS: Calcium 9.1 mg/dl (8.6-10.3); Creatinine Clr Calc Pharmacy 103.3 ml/min; Est GFR (African American) 102.4 ml/min; Est GFR (Non-African American) 88.3 ml/min; Potassium 4.4 mmol/L (3.5-5.1)
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
[2023-03-17] MEDS: ASPIRIN 81 MG ECTAB PO SCH (08:34)
[2023-03-17] MEDS: GABAPENTIN 300 MG CAP PO SCH ×3 (08:34→19:34)
[2023-03-17] MEDS: ATORVASTATIN 10 MG TAB PO SCH (08:34)
[2023-03-17] MEDS: FINASTERIDE 5 MG TAB PO SCH (08:34)
[2023-03-17] MEDS: PANTOprazole 40 MG TAB PO SCH (08:34)
[2023-03-17] MEDS: METHOCARBAMOL 750 MG TABLET PO SCH ×3 (08:35→19:34)
[2023-03-17] MEDS: TAMSULOSIN HCL 0.4 MG CAP PO SCH (08:35)
[2023-03-17] MEDS: POLYETHYLENE (MIRALAX) 17 GM PACK PO SCH (08:36)
[2023-03-17] MEDS: ENOXAPARIN INJ 40 MG/0.4 ML SYR SQ SCH (08:36)
[2023-03-17] MEDS: ACETAMINOPHEN 325 MG TAB PO PRN ×2 (08:38→19:33)
[2023-03-17] MEDS ORDERED: lisinopril 5 MG TAB PO SCH (09:00)
[2023-03-17] MEDS: METOPROLOL TARTRATE 50 MG TAB PO SCH ×2 (10:05→21:37)
--- NOTE | 2023-03-17 11:14 | Electrocardiogram Report ---
Test Reason : Blood Pressure : / mmHG Vent. Rate : 134 BPM Atrial Rate : 000 BPM P-R Int : 000 ms QRS Dur : 088 ms QT Int : 400 ms P-R-T Axes : 000 059 -06 degrees QTc Int : 597 ms Poor data quality, interpretation may be adversely affected Undetermined rhythm Septal infarct (cited on or before 16-MAR-2023) Abnormal ECG When compared with ECG of 21-JAN-2023 09:37, Significant changes have occurred Confirmed by Farhat Cabral ([id number]) on 03/17/2023 11:14:23 AM Referred By: REFERRED SELF Confirmed By:Farhat Cabral
[2023-03-17] MEDS ORDERED: MEROPENEM 1,000 MG in SYRINGE 0 ML IV SCH (12:00)
[2023-03-17] MEDS ORDERED: cefTRIAXone SODIUM 2,000 MG in DEXTROSE 5% 50 ML IV SCH (14:00)
[2023-03-17] MEDS ORDERED: INFLUENZA VACCINE HIGH-DOSE (HD-IIV4) PF 65+ 0.7mL SYR IM ONE (21:00)
[2023-03-17] MEDS: MEROPENEM 500 MG in SYRINGE 0 ML IV SCH (21:35)
[2023-03-18] MEDS: MEROPENEM 500 MG in SYRINGE 0 ML IV SCH ×4 (03:37→22:56)
[2023-03-18] MEDS: ACETAMINOPHEN 325 MG TAB PO PRN ×2 (04:10→10:45)
[2023-03-18 08:03] LABS: Basophils # (auto) 0.09 K/uL (0.00-0.20); Eosinophils # (auto) 0.52 K/uL (0.00-0.50); Eosinophils % (auto) 5.7 %; Hematocrit (blood only) 35.8 % (42.0-52.0); Hemoglobin 12.5 g/dl (14.0-18.0); Immature Granulocytes # (auto) 0.04 K/uL (0.01-0.20); Immature Granulocytes % (auto) 0.4 %; Lymphocytes # (auto) 1.81 K/uL (1.20-3.40); Lymphocytes % (auto) 19.9 %; Mean Corpuscular Hemoglobin 33.5 pg (25.0-34.0); Mean Corpuscular Hgb Conc 34.9 g/dL (32.0-36.0); Mean Platelet Volume 9.8 fL (9.4-12.4); Monocytes # (auto) 1.28 K/uL (0.11-0.59); Monocytes % (auto) 14.1 %; Neutrophils # (auto) 5.36 K/uL (1.40-6.50); Neutrophils % (auto) 58.9 %; Platelet Count 375 K/uL (130-400); RDW Coefficient of Variation 13.2 % (11.5-14.5); RDW Standard Deviation 46.7 fL (36.4-46.3); Red Blood Count 3.73 M/uL (4.70-6.10)
[2023-03-18 08:19] LABS: Albumin Globulin Ratio 0.8 (0.9-2); BUN Creatinine Ratio 30.3 (10-20); Bilirubin,Total 0.4 mg/dl (0.2-1.0); C Reactive Protein 11.1 mg/dl (0-0.5); Creatinine Clr Calc Pharmacy 111.4 ml/min; Est GFR (African American) 105.6 ml/min; Est GFR (Non-African American) 91.1 ml/min; Globulin 3.6 gm/dl (2.5-4.0); Potassium 4.3 mmol/L (3.5-5.1); Total Protein 6.6 gm/dl (6.0-8.3)
[2023-03-18] MEDS: ASPIRIN 81 MG ECTAB PO SCH (09:10)
[2023-03-18] MEDS: ATORVASTATIN 10 MG TAB PO SCH (09:10)
[2023-03-18] MEDS: FINASTERIDE 5 MG TAB PO SCH (09:11)
[2023-03-18] MEDS: GABAPENTIN 300 MG CAP PO SCH ×3 (09:11→20:00)
[2023-03-18] MEDS: METHOCARBAMOL 750 MG TABLET PO SCH ×3 (09:12→20:00)
[2023-03-18] MEDS: TAMSULOSIN HCL 0.4 MG CAP PO SCH (09:13)
[2023-03-18] MEDS: PANTOprazole 40 MG TAB PO SCH (09:13)
[2023-03-18] MEDS: METOPROLOL TARTRATE 50 MG TAB PO SCH ×2 (09:13→20:46)
[2023-03-18] MEDS: POLYETHYLENE (MIRALAX) 17 GM PACK PO SCH (09:13)
[2023-03-18] MEDS: ENOXAPARIN INJ 40 MG/0.4 ML SYR SQ SCH (09:14)
[2023-03-18] MEDS ORDERED: VANCOMYCIN CONSULT ACTIVE PRN (09:38)
[2023-03-18] MEDS ORDERED: VANCOMYCIN HCL 2,250 MG in SODIUM CHLORIDE 0.9% 500 ML IV ONE (10:00)
--- NOTE | 2023-03-18 10:46 | Pharmacy Report ---
Pharmacy PK ABX Note - Date of Service March 18, 2023 - Assessment and Plan Assessment 72 year old M receiving Vancomycin and Meropenem for treatment of bilateral lower extremity cellulitis. * Day #1 of antimicrobial therapy. * Labs/Vitals: Low grade fever x 1 last evening at 37.8oC. Leukocytosis of 11k yesterday trending down to 9.1k today. Renal fxn is stable. Lactate and procal negative. * Micro: Blood cultures from 03/16/23 show no growth to date. R leg culture is growing gram negative bacilli while L leg culture is growing staph species. Plan Vancomycin * Loading dose: 2250 mg IV x 1 * Maintenance dose: 1250 mg IV every 12 hours * Regimen is predicted to achieve target AUC/BOAZ of 400-600 mg/L.hr * Random level ordered for: 03/20/23 Meropenem * 500 mg IV every 6 hours Pharmacy will continue to follow and will adjust dose/frequency as necessary. Thank you. Pharmacy has transitioned to AUC monitoring for vancomycin. AUC/BOAZ is the preferred PK/PD target and is associated with decreased risk of nephrotoxicity compared to traditional trough targets.
--- NOTE | 2023-03-18 12:14 | Electrocardiogram Report ---
Test Reason : Blood Pressure : / mmHG Vent. Rate : 073 BPM Atrial Rate : 073 BPM P-R Int : 174 ms QRS Dur : 100 ms QT Int : 396 ms P-R-T Axes : -13 030 075 degrees QTc Int : 436 ms Poor data quality, interpretation may be adversely affected Normal sinus rhythm Nonspecific ST abnormality Abnormal ECG When compared with ECG of 21-JAN-2023 09:37, Premature ventricular complexes are no longer Present ST now depressed in Inferior leads Confirmed by Farhat Cabral ([id number]) on 03/18/2023 12:14:27 PM Referred By: REFERRED SELF Confirmed By:Farhat Cabral
[2023-03-18] MEDS: KETOROLAC TROMETHAMINE 15 MG/ML VIAL IV PRN ×2 (13:03→23:51)
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
[2023-03-18] MEDS: VANCOMYCIN HCL 1,250 MG in SODIUM CHLORIDE 0.9% 250 ML IV SCH (19:59)
[2023-03-18] MEDS: traMADol HCL 50 MG TABLET PO PRN (19:59)
[2023-03-19] MEDS: MEROPENEM 500 MG in SYRINGE 0 ML IV SCH ×4 (03:49→23:03)
[2023-03-19] MEDS: ACETAMINOPHEN 325 MG TAB PO PRN ×2 (07:21→20:14)
[2023-03-19 08:07] LABS: Basophils # (auto) 0.09 K/uL (0.00-0.20); Eosinophils # (auto) 0.58 K/uL (0.00-0.50); Eosinophils % (auto) 6.7 %; Hematocrit (blood only) 38.9 % (42.0-52.0); Hemoglobin 13.1 g/dl (14.0-18.0); Immature Granulocytes # (auto) 0.03 K/uL (0.01-0.20); Immature Granulocytes % (auto) 0.3 %; Lymphocytes # (auto) 1.13 K/uL (1.20-3.40); Lymphocytes % (auto) 13.1 %; Mean Corpuscular Hemoglobin 33.2 pg (25.0-34.0); Mean Corpuscular Hgb Conc 33.7 g/dL (32.0-36.0); Mean Corpuscular Volume 98.7 fL (80.0-100.0); Mean Platelet Volume 9.5 fL (9.4-12.4); Monocytes % (auto) 13.9 %; Platelet Count 376 K/uL (130-400); RDW Coefficient of Variation 13.2 % (11.5-14.5); Red Blood Count 3.94 M/uL (4.70-6.10); White Blood Count 8.63 K/ul (4.8-10.8)
[2023-03-19 08:28] LABS: BUN Creatinine Ratio 34.2 (10-20); C Reactive Protein 7.97 mg/dl (0-0.5); Calcium 9.2 mg/dl (8.6-10.3); Creatinine Clr Calc Pharmacy 111.4 ml/min; Est GFR (African American) 105.6 ml/min; Est GFR (Non-African American) 91.1 ml/min; Potassium 4.7 mmol/L (3.5-5.1)
[2023-03-19] MEDS: ASPIRIN 81 MG ECTAB PO SCH (09:07)
[2023-03-19] MEDS: ATORVASTATIN 10 MG TAB PO SCH (09:07)
[2023-03-19] MEDS: ENOXAPARIN INJ 40 MG/0.4 ML SYR SQ SCH (09:08)
[2023-03-19] MEDS: FINASTERIDE 5 MG TAB PO SCH (09:08)
[2023-03-19] MEDS: GABAPENTIN 300 MG CAP PO SCH ×3 (09:08→21:37)
[2023-03-19] MEDS: METHOCARBAMOL 750 MG TABLET PO SCH ×3 (09:09→21:38)
[2023-03-19] MEDS: TAMSULOSIN HCL 0.4 MG CAP PO SCH (09:10)
[2023-03-19] MEDS: PANTOprazole 40 MG TAB PO SCH (09:10)
[2023-03-19] MEDS: VANCOMYCIN HCL 1,250 MG in SODIUM CHLORIDE 0.9% 250 ML IV SCH ×2 (09:33→20:31)
[2023-03-19] MEDS: POLYETHYLENE (MIRALAX) 17 GM PACK PO SCH (10:05)
[2023-03-19] MEDS: KETOROLAC TROMETHAMINE 15 MG/ML VIAL IV PRN ×2 (10:57→18:25)
[2023-03-19] MEDS: METOPROLOL TARTRATE 50 MG TAB PO SCH ×2 (11:04→21:38)
[2023-03-20] MEDS: MEROPENEM 500 MG in SYRINGE 0 ML IV SCH ×2 (03:50→07:54)
[2023-03-20] MEDS: ACETAMINOPHEN 325 MG TAB PO PRN ×2 (04:02→11:32)
[2023-03-20 06:10] LABS: Creatinine Clr Calc Pharmacy 98.5 ml/min; Est GFR (African American) 100.4 ml/min; Est GFR (Non-African American) 86.6 ml/min
[2023-03-20] MEDS ORDERED: VANCOMYCIN LEVEL ONE (07:30)
[2023-03-20] MEDS: KETOROLAC TROMETHAMINE 15 MG/ML VIAL IV PRN ×2 (07:53→17:58)
[2023-03-20] MEDS: VANCOMYCIN HCL 1,250 MG in SODIUM CHLORIDE 0.9% 250 ML IV SCH (07:54)
[2023-03-20] MEDS: ENOXAPARIN INJ 40 MG/0.4 ML SYR SQ SCH (08:07)
[2023-03-20] MEDS: PANTOprazole 40 MG TAB PO SCH (08:07)
[2023-03-20] MEDS: FINASTERIDE 5 MG TAB PO SCH (08:07)
[2023-03-20] MEDS: ATORVASTATIN 10 MG TAB PO SCH (08:07)
[2023-03-20] MEDS: GABAPENTIN 300 MG CAP PO SCH ×3 (08:08→19:45)
[2023-03-20] MEDS: TAMSULOSIN HCL 0.4 MG CAP PO SCH (08:08)
[2023-03-20] MEDS: ASPIRIN 81 MG ECTAB PO SCH (08:08)
[2023-03-20] MEDS: METHOCARBAMOL 750 MG TABLET PO SCH ×3 (08:09→19:45)
[2023-03-20] MEDS: METOPROLOL TARTRATE 50 MG TAB PO SCH ×2 (08:09→19:45)
[2023-03-20] MEDS: POLYETHYLENE (MIRALAX) 17 GM PACK PO SCH (08:10)
--- NOTE | 2023-03-20 08:54 | Pharmacy Report ---
Pharmacy PK ABX Note - Date of Service March 20, 2023 - Assessment and Plan Assessment 72 year old M receiving Vancomycin and Meropenem for treatment of bilateral lower extremity cellulitis. * Day #3 of antimicrobial therapy. * Labs/Vitals: Afebrile > 48 hours. Leukocytosis resolved. Renal fxn is stable. Lactate and procal negative. * Micro: Blood cultures from 03/16/23 show no growth to date. Both leg cultures are final and grew Pseudomonas aeruginosa and MSSA. * Recommend transition to monotherapy with Zosyn 4.5 g IV q8h. Plan Vancomycin * Current regimen: 1250 mg IV every 12 hours * Random level obtained 03/20/23 resulted as 20.2 mcg/mL. This is predicted to achieve target AUC/BOAZ of 400-600 mg/L.hr * Predicted AUC at steady state: 587 mg/L.hr * Continue 1250 mg IV every 12 hours * Repeat random level ordered for: 03/22/23 Meropenem * 500 mg IV every 6 hours Pharmacy will continue to follow and will adjust dose/frequency as necessary. Thank you. Pharmacy has transitioned to AUC monitoring for vancomycin. AUC/BOAZ is the preferred PK/PD target and is associated with decreased risk of nephrotoxicity compared to traditional trough targets.
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
[2023-03-20] MEDS: traMADol HCL 50 MG TABLET PO PRN (10:07)
[2023-03-20] MEDS: metroNIDAZOLE 0.75% TOPICAL GEL 45 GM TUBE TOP SCH ×2 (10:36→19:46)
[2023-03-20] MEDS: KETOCONAZOLE 2% CR 15 GM TUBE EXT SCH ×2 (10:36→19:45)
[2023-03-20] MEDS: PIPER/TAZO 4.5g in D5W MINI-B 100 ML IV SCH ×2 (12:50→19:40)
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
--- NOTE | 2023-03-20 17:27 | Hospitalist Progress Note ---
Date of Service March 20, 2023 Assessment & Plan (1) Recurrent cellulitis of lower extremity: Plan: Clinically, LE pain b/l with erythema, swelling, and weeping lesions Patient with history of recurrent LE cellulitis, chronic venous insufficiency, and venous stasis ulcers with spinal OM/discitis and Staph epi septicemia with prolonged hospitalization in 2021 ESR/CRP elevation 66/4.76 and now CRP improving Leukocytosis now resolved,Lactic 1.4 on admission, procal not elevated Growing MSSA and Pseudomonas pansens on wound cxs from legs Appreciate Wound care consult Pain now controlled with tylenol and tramadol ID consult appreciated-ok to cancel CT of legs as no deep appearing abscess and pain improved -received Meropenem and Vanco, now convert to Zosyn alone -need to repeat ECG to check QTc and if ok, could transition to FQ for PSA and AUgmentin or amox or doxy for MSSA -follow CBC, CMP -elevate legs (2) Fall: Plan: No LOC. No head strike. Not on blood thinners. 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 Asking if he really has to go to rehab or if can go home. He only walked 3 feet to chair with PT today and still recommending rehab. Discussed this with pt and his consulting application engineer at the bedside who agreed pt should go to rehab before returning home Denies CP, SOB.IS eating well Physical Exam Constitutional: WD/WN, vitals as above Neck: trachea midline, no thyromegaly Respiratory: normal respiratory effort Skin: extremities with kerlix dressings in place c/d/i Neurologic: moves all extremities and awake; no focal motor deficits Psychiatric: A+Ox3, euthymic affect Orientation: cooperative Results & Data Results & Data Vital Signs (Past 12 Hours) Vital Signs Temp Pulse Resp BP Pulse Ox O2 Del Method 03/20/23 16:32 36.6 C 58 L 18 120/78 96 Room Air 03/20/23 08:20 Room Air 03/20/23 07:37 36.8 C 78 18 145/78 H 95 Room Air Laboratory Results block layer reviewed Wound and BCxs reviewed PG Care Time/CCT Total # of Minutes Spent Total Time Spent with Patient: Total time spent is greater than 50% in coordination of care (as documented) at patient's floor/unit and/or counseling patient: Coding Level of Care Code 88340 SUB INP/OBS CARE 2/35MIN Diagnoses Recurrent cellulitis of lower extremity L03.119 Fall W19.XXXA Encounter type: initial encounter Asplenia Q89.01 HTN (hypertension) I10 Hypertension type: essential hypertension BPH (benign prostatic hyperplasia) N40.0 GERD (gastroesophageal reflux disease) K21.9 (2) Fall Encounter type: initial encounter Qualified Code(s): W19.XXXA - Unspecified fall, initial encounter (4) HTN (hypertension) Hypertension type: essential hypertension Qualified Code(s): I10 - Essential (primary) hypertension
[2023-03-21] MEDS: traMADol HCL 50 MG TABLET PO PRN ×3 (02:20→17:56)
[2023-03-21] MEDS: KETOROLAC TROMETHAMINE 15 MG/ML VIAL IV PRN ×2 (03:42→14:12)
[2023-03-21] MEDS: PIPER/TAZO 4.5g in D5W MINI-B 100 ML IV SCH ×3 (03:43→19:52)
[2023-03-21 08:22] LABS: Basophils # (auto) 0.09 K/uL (0.00-0.20); Basophils % (auto) 1.2 %; Eosinophils # (auto) 0.63 K/uL (0.00-0.50); Eosinophils % (auto) 8.3 %; Hematocrit (blood only) 35.4 % (42.0-52.0); Immature Granulocytes # (auto) 0.03 K/uL (0.01-0.20); Immature Granulocytes % (auto) 0.4 %; Lymphocytes % (auto) 19.8 %; Mean Corpuscular Hgb Conc 33.9 g/dL (32.0-36.0); Mean Corpuscular Volume 97.3 fL (80.0-100.0); Mean Platelet Volume 9.7 fL (9.4-12.4); Monocytes # (auto) 0.94 K/uL (0.11-0.59); Monocytes % (auto) 12.4 %; Neutrophils # (auto) 4.39 K/uL (1.40-6.50); Neutrophils % (auto) 57.9 %; Platelet Count 373 K/uL (130-400); RDW Standard Deviation 46.5 fL (36.4-46.3); Red Blood Count 3.64 M/uL (4.70-6.10); White Blood Count 7.58 K/ul (4.8-10.8)
[2023-03-21] MEDS: GABAPENTIN 300 MG CAP PO SCH ×3 (08:24→19:58)
[2023-03-21] MEDS: METHOCARBAMOL 750 MG TABLET PO SCH ×3 (08:25→20:00)
[2023-03-21] MEDS: METOPROLOL TARTRATE 50 MG TAB PO SCH ×2 (08:25→20:00)
[2023-03-21] MEDS: ATORVASTATIN 10 MG TAB PO SCH (08:25)
[2023-03-21] MEDS: ENOXAPARIN INJ 40 MG/0.4 ML SYR SQ SCH (08:25)
[2023-03-21] MEDS: FINASTERIDE 5 MG TAB PO SCH (08:26)
[2023-03-21] MEDS: metroNIDAZOLE 0.75% TOPICAL GEL 45 GM TUBE TOP SCH ×2 (08:26→19:59)
[2023-03-21] MEDS: KETOCONAZOLE 2% CR 15 GM TUBE EXT SCH ×2 (08:26→19:59)
[2023-03-21] MEDS: POLYETHYLENE (MIRALAX) 17 GM PACK PO SCH (08:26)
[2023-03-21] MEDS: PANTOprazole 40 MG TAB PO SCH (08:27)
[2023-03-21] MEDS: ASPIRIN 81 MG ECTAB PO SCH (08:27)
[2023-03-21] MEDS: TAMSULOSIN HCL 0.4 MG CAP PO SCH (08:27)
[2023-03-21 08:50] LABS: Albumin Globulin Ratio 0.8 (0.9-2); Albumin Level 2.8 gm/dl (3.4-5.0); BUN Creatinine Ratio 34.9 (10-20); Bilirubin,Total 0.4 mg/dl (0.2-1.0); C Reactive Protein 6.03 mg/dl (0-0.5); Calcium 9.1 mg/dl (8.6-10.3); Creatinine Clr Calc Pharmacy 98.5 ml/min; Est GFR (African American) 100.4 ml/min; Est GFR (Non-African American) 86.6 ml/min; Globulin 3.4 gm/dl (2.5-4.0); Magnesium 1.9 mg/dl (1.7-2.4); Potassium 4.6 mmol/L (3.5-5.1); Total Protein 6.2 gm/dl (6.0-8.3)
--- NOTE | 2023-03-21 12:22 | Electrocardiogram Report ---
Test Reason : Blood Pressure : / mmHG Vent. Rate : 060 BPM Atrial Rate : 060 BPM P-R Int : 224 ms QRS Dur : 088 ms QT Int : 402 ms P-R-T Axes : 042 049 019 degrees QTc Int : 402 ms Sinus rhythm with 1st degree A-V block Otherwise normal ECG When compared with ECG of 16-MAR-2023 15:54, Previous ECG has undetermined rhythm, needs review Criteria for Septal infarct are no longer Present ST elevation has replaced ST depression in Lateral leads Confirmed by Farhat Cabral ([id number]) on 03/21/2023 12:21:48 PM Referred By: REFERRED SELF Confirmed By:Farhat Cabral
--- NOTE | 2023-03-21 18:30 | Hospitalist Progress Note ---
Date of Service March 21, 2023 Assessment & Plan (1) Recurrent cellulitis of lower extremity: Plan: Clinically, LE pain b/l with erythema, swelling, and weeping lesions with open blisters large Patient with history of recurrent LE cellulitis, chronic venous insufficiency, and venous stasis ulcers with spinal OM/discitis and Staph epi septicemia with prolonged hospitalization in 2021 ESR/CRP elevation now improving Leukocytosis now resolved,Lactic 1.4 on admission, procal not elevated Growing MSSA and Pseudomonas pansens on wound cxs from legs Appreciate Wound care consult Pain now controlled with tylenol and tramadol, toradol ID consult appreciated-ok to cancel CT of legs as no deep appearing abscess and pain improved -received Meropenem and Vanco initially, then converted to Zosyn alone -repeat ECG for prolonged QTc now normal--> could transition to Levaquin 750mg po daily for PSA and Keflex 500mg po qid for MSSA to complete therapy -follow CBC, BMP -elevate legs for significant edema which is now improving (2) Fall: Plan: No LOC. No head strike. Not on blood thinners. 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 WOunds redressed today before I could see him. Otherwise he is much more mentally clear, telling me stories from his work life and growing [place] a [place]. Physical Exam Constitutional: WD/WN, vitals as above Neck: trachea midline, no thyromegaly Respiratory: normal respiratory effort, lungs clear to auscultation normal respiratory effort Cardiovascular: Rate/Rhythm: regular rate and regular rhythm Heart Sounds: no murmur Gastrointestinal (Abdomen): Inspection/Auscultation: + visible herniation Percussion/Palpation: abdomen soft; abdomen nontender Skin: + rash (greasy flaky skin in [place] and eyebrows,around nose and hairline), + ulcer (legs covered with bulky dressing with kerlix) and + erythema (bilat legs improving around edges of dressing) Neurologic: moves all extremities and awake; no focal motor deficits Psychiatric: A+Ox3, euthymic affect Orientation: cooperative Results & Data Results & Data Vital Signs (Past 12 Hours) Vital Signs Temp Pulse Resp BP BP Pulse Ox O2 Del Method 03/21/23 15:12 36.7 C 65 18 106/66 94 Room Air 03/21/23 07:45 Room Air 03/21/23 07:47 36.8 C 63 18 125/65 94 Room Air Laboratory Results CBC, BMP, ESR, CRP, magnesium reviewed Blood cxs NGTD PG Care Time/CCT Total # of Minutes Spent Total Time Spent with Patient: Total time spent is greater than 50% in coordination of care (as documented) at patient's floor/unit and/or counseling patient: Coding Level of Care Code 44718 SUB INP/OBS CARE 2/35MIN Diagnoses Recurrent cellulitis of lower extremity L03.119 Fall W19.XXXA Encounter type: initial encounter Asplenia Q89.01 HTN (hypertension) I10 Hypertension type: essential hypertension BPH (benign prostatic hyperplasia) N40.0 GERD (gastroesophageal reflux disease) K21.9 (2) Fall Encounter type: initial encounter Qualified Code(s): W19.XXXA - Unspecified fall, initial encounter (4) HTN (hypertension) Hypertension type: essential hypertension Qualified Code(s): I10 - Essential (primary) hypertension
--- NOTE | 2023-03-21 19:04 | Infectious Disease Progress Nt ---
Date of Service March 21, 2023 Assessment & Plan (1) Venous stasis ulcer: (2) Recurrent cellulitis of lower extremity: (3) Chronic venous insufficiency: Plan 72-year-old male with PMH of dementia, splenectomy, LE cellulitis , staph epi bacteremia with spinal osteo and abscess in 2021, PVD, BPH, chronic venous stasis presents sp falling out of his wheelchair . He felt weak and did not lose consciousness. He felt his legs gave out because of the pain from LE ulcers and blisters. His pain was severe and throbbing. Over the last 2 weeks, he noted painful large blisters that have ruptured and weeped. He uses a wheelchair and walker at baseline. He denies fever, chills, sweats,, nausea, vomiting,change in urine, new back pain or bowel habits. He was admitted to [facility] 01/21-01/22 for fall, weakness, BL LE redness and uti. His home health aides have been washing and dressing his wounds. Admission Wbc 11.95k, Bun 32, cr 0.92, crp 4.76, lactate 1.4. BC sterile. CXr clear, Ct head with no acute process He was started on Iv vancomycin and Meropenem. He complained of LE pain, which has since resolved. He remains hemodynamically stable.. WC grew MSSA and PSS. ID consulted for MSSA and PSA cellulitis. Micro BC 03/16 NGTD WC 03/16 (R) MSSA, PsA ( panS) WC 03/16 (L)MSSA, PsA ( panS) Abx Ceftriaxone 03/16 [place] 03/17-ongoing vanc 03/18- ongoing #BL LE chronic venous stasis with resolving ulcers and resolving cellulitis on RLE #venous insufficiency #PAD # S/P splenectomy # history of stap epi bacteremia with spinal om and epidural abscess in 2021 # Bactrim allergy - lip swelling On my initial consult 03/20- LE changes look acute on chronic with recently auto drained blisters, that are not dermatomal. He denied pain and had N O tenderness on exam . He reported pain on admission but pain resolved at jaya of my visit. He had recieved 3 days of Meropenem at time of evaluation. Wound cxs + MSSA and PSA. Abx was transitioned to Zosyn on 03/20, Crp decreasinf 11---> 6.03 Recommendations Continue Zosyn. Can complete therapy with Levaquin 750 mg PO daily ( qtc 405) AND Keflex 500 mg po q 6hrs to end on 03/24. ( total of 7 days of targeted abx therapy). FU BC Continue to monitor clinical response. Keep legs elevated when sitting Set up with Wound care clinic on discharge ID will sign off. Please call with questions.. Charis Mar MD, MPH Infectious Disease ID [facility], ID Division Call [phone] with questions Admission and Anticipated Discharge Date Admission Date: March 16, 2023 Subjective This patient recommendation is based on a telemedicine consult request which was completed asynchronously through chart review and information provided by the primary physician. The patient was not seen or examined today. The evaluation is consultative in nature and all patient care and treatment decisions can either be accepted or rejected by the patient's primary hospital-based treating physician using their own independent medical judgment for their patient. Time Spent Reviewing Chart: 11 - 20 minutes Afebrile Qtc < 500. Pt not examined today. LE was improving on exam on 03/20 Results & Data Vital Signs (Past 12 Hours) Vital Signs Temp Pulse Resp BP BP Pulse Ox O2 Del Method 03/21/23 15:12 36.7 C 65 18 106/66 94 Room Air 03/21/23 07:45 Room Air 03/21/23 07:47 36.8 C 63 18 125/65 94 Room Air (1) Venous stasis ulcer Laterality: left Non-pressure ulcer stage: limited to breakdown of skin Varicose vein presence: unspecified whether present Venous stasis ulcer site: calf Qualified Code(s): I83.022 - Varicose veins of left lower extremity with ulcer of calf; L97.221 - Non-pressure chronic ulcer of left calf limited to breakdown of skin
[2023-03-21] MEDS: ACETAMINOPHEN 325 MG TAB PO PRN (19:50)
[2023-03-22] MEDS: traMADol HCL 50 MG TABLET PO PRN ×2 (00:49→11:14)
[2023-03-22] MEDS: PIPER/TAZO 4.5g in D5W MINI-B 100 ML IV SCH ×2 (04:08→12:09)
[2023-03-22] MEDS: ACETAMINOPHEN 325 MG TAB PO PRN ×2 (04:54→12:24)
[2023-03-22] MEDS: ASPIRIN 81 MG ECTAB PO SCH (09:01)
[2023-03-22] MEDS: GABAPENTIN 300 MG CAP PO SCH ×2 (09:01→14:08)
[2023-03-22] MEDS: FINASTERIDE 5 MG TAB PO SCH (09:01)
[2023-03-22] MEDS: ATORVASTATIN 10 MG TAB PO SCH (09:01)
[2023-03-22 09:02] LABS: Basophils # (auto) 0.17 K/uL (0.00-0.20); Basophils % (auto) 1.5 %; Eosinophils % (auto) 5.4 %; Hematocrit (blood only) 35.2 % (42.0-52.0); Hemoglobin 11.7 g/dl (14.0-18.0); Immature Granulocytes # (auto) 0.05 K/uL (0.01-0.20); Immature Granulocytes % (auto) 0.5 %; Lymphocytes # (auto) 1.66 K/uL (1.20-3.40); Mean Corpuscular Hgb Conc 33.2 g/dL (32.0-36.0); Mean Corpuscular Volume 99.2 fL (80.0-100.0); Mean Platelet Volume 9.7 fL (9.4-12.4); Monocytes # (auto) 0.99 K/uL (0.11-0.59); Neutrophils # (auto) 7.58 K/uL (1.40-6.50); Neutrophils % (auto) 68.6 %; Platelet Count 391 K/uL (130-400); RDW Coefficient of Variation 13.2 % (11.5-14.5); RDW Standard Deviation 47.8 fL (36.4-46.3); Red Blood Count 3.55 M/uL (4.70-6.10); White Blood Count 11.05 K/ul (4.8-10.8)
[2023-03-22] MEDS: METOPROLOL TARTRATE 50 MG TAB PO SCH (09:02)
[2023-03-22] MEDS: METHOCARBAMOL 750 MG TABLET PO SCH ×2 (09:02→14:08)
[2023-03-22] MEDS: TAMSULOSIN HCL 0.4 MG CAP PO SCH (09:02)
[2023-03-22] MEDS: PANTOprazole 40 MG TAB PO SCH (09:02)
[2023-03-22] MEDS: POLYETHYLENE (MIRALAX) 17 GM PACK PO SCH (09:05)
[2023-03-22] MEDS: ENOXAPARIN INJ 40 MG/0.4 ML SYR SQ SCH (09:05)
[2023-03-22 09:21] LABS: Calcium 9.3 mg/dl (8.6-10.3); Creatinine Clr Calc Pharmacy 87.3 ml/min; Est GFR (Non-African American) 77.7 ml/min; Potassium 4.7 mmol/L (3.5-5.1)
[2023-03-22] MEDS: metroNIDAZOLE 0.75% TOPICAL GEL 45 GM TUBE TOP SCH (11:36)
[2023-03-22] MEDS: KETOCONAZOLE 2% CR 15 GM TUBE EXT SCH (11:36)
--- NOTE | 2023-03-22 13:07 | Discharge Summary ---
Date of Service March 22, 2023 Admission HPI Per Admitting Provider Lul Gee is a 72-year-old male with PMH of dementia, splenectomy, recurrent b/l LE cellulitis, GERD, HTN, HLD, PVD, BPH, and chronic venous stasis. He presents via EMS after falling out of his wheelchair this morning; unable to get up. No LOC. No head strike. Not on blood thinners. He reports that his legs buckled due to LE cellulitis and weakness. He first noticed swelling and blisters on his lower legs 2 weeks ago. Today, he rates his lower leg pain 9/10 and describes it as a "burning, constant" pain; no radiation. He endorses mild numbness and tingling in his feet b/l. Ambulatory dysfunction at baseline; uses wheelchair, walker, cane at home. Patient lives with his son, with home nursing care. Per patient, home nursing care has been washing the legs daily; no abx given. He has been taking 2 Tylenol twice daily for leg pain. He did not take any of his morning medications. Denies PMHx of diabetes, DVT/PE, WA, or surgeries on the legs. Further denies fevers, ELMORE, dizziness, lightheadedness, CP, SOB, abdominal pain, urinary retention, and blood in the urine/stool. Recent [facility] hospitalization 01/21 to 01/22 for weakness, fall, UTI, and bilateral LE erythema Principal Diagnosis Bilateral lower extremity chronic venous insufficiency with stasis dermatitis and ulcerations and cellulitis Discharge Exam General-alert and oriented x3, no fevers, no chills HEENT-head atraumatic and normocephalic, pupils equal and reactive to light, extraocular muscles intact Neck-no lymphadenopathy or thyromegaly, trachea midline Chest-clear to auscultation percussion. No rales wheezing or rhonchi Cardiac-regular rate and rhythm, normal S1 and S2 Abdomen-normal bowel sounds, nontender, no hepatosplenomegaly Extremities-bilateral lower extremity chronic venous stasis dermatitis and edema with ulcerations and cellulitis Neuro-cranial nerves II through XII intact, motor and sensory function within normal limits, strength symmetrical , no focal deficits Psych-normal affect, normal mood Discharge Data Allergies Allergy/AdvReac Type Severity Reaction Status Date / Time sulfamethoxazole Allergy Intermediate lip Verified 02/01/23 10:55 [From Bactrim] swelling trimethoprim [From Bactrim] Allergy Intermediate lip Verified 02/01/23 10:55 swelling Consultations 03/16/23 13:57 ED Decision to Admit Stat 03/19/23 16:53 Consult Infectious Diseases Routine Ordered Studies 03/16/23 11:44 CT head/brain wo con Stat Hospital Course (1) Recurrent cellulitis of lower extremity: Clinically, LE pain b/l with erythema, swelling, and weeping lesions with open blisters large Patient with history of recurrent LE cellulitis, chronic venous insufficiency, and venous stasis ulcers with spinal OM/discitis and Staph epi septicemia with prolonged hospitalization in 2021 ESR/CRP elevation now improving Leukocytosis now resolved,Lactic 1.4 on admission, procal not elevated Growing MSSA and Pseudomonas pansens on wound cxs from legs Appreciate Wound care consult Pain now controlled with tylenol and tramadol, toradol ID consult appreciated-ok to cancel CT of legs as no deep appearing abscess and pain improved -received Meropenem and Vanco initially, then converted to Zosyn alone -repeat ECG for prolonged QTc now normal--> at discharge will ransition to Levaquin 750mg po daily for PSA and Keflex 500mg po qid for MSSA -follow CBC, BMP -elevate legs for significant edema which is now improving (2) Fall: No LOC. No head strike. Not on blood thinners. 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 (4) HTN (hypertension): BP acceptable Continues on lisinopril, metoprolol (5) BPH (benign prostatic hyperplasia): Continue tamsulosin Continue finasteride (6) GERD (gastroesophageal reflux disease): Continue pantoprazole Plan DVT proph-Lovenox Dispo-[facility] today[facility] 22 Total Time Total Time Spent Total Time Spent (In Minutes): 45 minutes Discharge Plan Discharge Items Patient Disposition: Transfer Inpatient Rehab Fac Reason For Visit: CELLULITIS Discharge Diagnosis: Bilateral lower extremity chronic venous insufficiency, stasis ulcerations, cellulitis Activity: Resume your previous activity Non-emergency contact: Primary Care Provider Call non-emergency contact if: your symptoms worsen Follow-up/Referrals: Alanna Cowan PA-C [Primary Care Provider] - Diet: Regular and Heart Healthy Addtl Attending Provider Instructions: Take oral Levaquin and Keflex for 10 more days Pending Studies at Discharge: No Stand-Alone Forms: My [facility] Skilled Items Patient informed of condition?: Yes DNR: Yes Discharge Level of Care: Acute rehab Communicable Disease: No Discharge Prognosis: Stable Lines: None Urinary Catheter: No Medications and DC Order Prescriptions: New levofloxacin 750 mg tablet 750 mg PO DAILY 10 Days Qty: 10 0RF cephalexin 500 mg capsule 500 mg PO QID 10 Days Qty: 40 0RF metronidazole 0.75 % Gel 1 applic topical BID Qty: 0 0RF tramadol 50 mg Tablet 50 mg PO Q6H PRNQty: 0 0RF ketoconazole 2 % Cream 1 applic EXT BID Qty: 0 0RF Continued pantoprazole 40 mg tablet,delayed release (DR/EC) 40 mg PO DAILY Qty: 90 3RF lidocaine [Aspercreme (lidocaine)] 4 % adhesive patch,medicated 1 patch topical DAILY PRN (Reason: pain) Qty: 10 0RF ondansetron HCl 4 mg tablet 4 mg PO Q8H PRN (Reason: nausea and vomiting) Qty: 14 0RF polyethylene glycol 3350 [Miralax] 17 gram/dose powder 17 g PO DAILY Qty: 119 0RF tamsulosin 0.4 mg capsule 0.4 mg PO DAILY Qty: 90 3RF aspirin 81 mg tablet,chewable 81 mg PO DAILY Qty: 30 2RF atorvastatin [Lipitor] 10 mg tablet 10 mg PO DAILY Qty: 90 3RF finasteride 5 mg tablet 5 mg PO DAILY Qty: 90 3RF gabapentin 300 mg capsule 300 mg PO TID Qty: 90 3RF lisinopril 5 mg tablet 5 mg PO DAILY Qty: 90 3RF metoprolol tartrate 50 mg tablet 50 mg PO BID Qty: 60 3RF methocarbamol 750 mg tablet See Rx Instructions .ROUTE .COMPLEX Qty: 90 0RF Dose Instruction: TAKE 1 TABLET BY MOUTH THREE TIMES DAILY Rx Instructions: TAKE 1 TABLET BY MOUTH THREE TIMES DAILY (DME) external catheter, male Misc See Rx Instructions .ROUTE Qty: 30 6RF Rx Instructions: Use daily As directed (DME) external catheter, male Misc See Rx Instructions .Route Qty: 30 6RF Rx Instructions: Use daily As directed Medline Remedy With Phytoplex Intensive Skin Therapy Calazime Skin Protectant paste topical QAM Discharge Orders: Discharge Order (Routine); Ordered 03/22/23 Ordered By: Mehdi Chaudhary Admission Data Admit Date/Time: 03/16/23 14:52 Attending Provider: Mehdi Chaudhary Admit Provider: Nirav Caballero Primary Care Provider: Alanna Cowan Other Providers: Nirav Caballero ; Jeanette Romo at [employer] ; [facility] ; [place] Bar ; Erne Lowe ; Teodora Hong ; Sendy Daniel ; Kaley Zepeda ; Tamra Baker ; Vanna Miller ; Charis Mar ; Jaye Pettit Coding Level of Care Code 32211 INP/OBS DISCH >30 MIN Diagnoses Recurrent cellulitis of lower extremity L03.119 Fall W19.XXXA Encounter type: initial encounter Asplenia Q89.01 HTN (hypertension) I10 Hypertension type: essential hypertension BPH (benign prostatic hyperplasia) N40.0 GERD (gastroesophageal reflux disease) K21.9
== END 2023-03-22 17:52 | DRG 603 ==
LOC: ED 10:28 → 3W 14:52 → SUATTDRO 14:52 → 3W 16:36

== ENCOUNTER 2023-04-07 10:29 | Inpatient (IN) ==
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
--- NOTE | 2023-04-07 11:45 | CT Scan Report ---
CT head/brain wo con CLINICAL HISTORY: 72 years-old Male with fall from standing; left frontal hematoma. Acute head traum a TECHNIQUE: Multiple axial CT images of the head were obtained without contrast. A dose lowering tech nique was utilized adhering to the principles of ALARA. CT DOSE: 1739.52 mGy.cm COMPARISON: 03/16/2023 FINDINGS: Surgical clips are noted in the suprasellar region. A large focus of right frontal encephalomalacia i s unchanged and consistent with remote insult. A small chronic infarct is seen in the high left front al lobe. There is age-related involutional change noting moderate subcortical and periventricular moisés roangiopathic disease. There is no hemorrhage, mass effect, or evidence of acute territorial ischemia by CT criteria. Jackson-white matter differentiation is preserved. No extra-axial fluid collection is s een. Gilberto-cisterna magna is incidentally noted. Involutional changes. There is post surgical change from right-sided craniotomy. The skeletal structures are osteopenic. No depressed calvarial fracture is seen. Developmental incomplete bony fusion along the posterior arch of C1. Left anterior frontal scalp contusion, 5 cm. IMPRESSION: 1. No acute intracranial abnormality or calvarial fracture. 2. Left frontal scalp contusion. 3. Chronic findings as above. ACT 112: Negative or not required by law. The above report was generated using voice recognition software. It may contain grammatical, syntax o r spelling errors. Electronically signed by: Mike Su M.D. 04/07/2023 11:43 AM
--- NOTE | 2023-04-07 11:50 | CT Scan Report ---
CT cervical spine wo con CLINICAL HISTORY: 72 years-old Male with fall from wheelchair. Acute neck pain status post trauma COMPARISON: 01/21/2023 TECHNIQUE: Multiple axial CT images of the cervical spine were obtained without contrast. A dose low ering technique was utilized adhering to the principles of ALARA. FINDINGS: Multilevel degenerative changes are again noted with severe multilevel intervertebral disc space narrowing. Developmental incomplete bony fusion is again seen within the posterior arch of C1. Study is mildly motion degraded. No acute fracture or subluxation identified. Lung apices are clear. No prevertebral edema. IMPRESSION: No acute fracture or subluxation identified. ACT 112: Negative or not required by law. The above report was generated using voice recognition software. It may contain grammatical, syntax o r spelling errors. Electronically signed by: Mike Su M.D. 04/07/2023 11:47 AM
[2023-04-07 11:52] LABS: Basophils # (auto) 0.09 K/uL (0.00-0.20); Basophils % (auto) 0.6 %; Eosinophils # (auto) 0.13 K/uL (0.00-0.50); Eosinophils % (auto) 0.9 %; Hemoglobin 14.1 g/dl (14.0-18.0); Immature Granulocytes # (auto) 0.07 K/uL (0.01-0.20); Immature Granulocytes % (auto) 0.5 %; Lymphocytes # (auto) 1.52 K/uL (1.20-3.40); Lymphocytes % (auto) 10.6 %; Mean Corpuscular Hemoglobin 32.8 pg (25.0-34.0); Mean Corpuscular Hgb Conc 33.6 g/dL (32.0-36.0); Mean Corpuscular Volume 97.7 fL (80.0-100.0); Mean Platelet Volume 10.7 fL (9.4-12.4); Monocytes # (auto) 0.95 K/uL (0.11-0.59); Monocytes % (auto) 6.6 %; Neutrophils # (auto) 11.63 K/uL (1.40-6.50); Neutrophils % (auto) 80.8 %; Platelet Count 423 K/uL (130-400); RDW Coefficient of Variation 13.2 % (11.5-14.5); RDW Standard Deviation 47.4 fL (36.4-46.3); White Blood Count 14.39 K/ul (4.8-10.8)
[2023-04-07 12:14] LABS: Albumin Globulin Ratio 0.8 (0.9-2); Albumin Level 3.8 gm/dl (3.4-5.0); BUN Creatinine Ratio 33.7 (10-20); Bilirubin,Total 0.6 mg/dl (0.2-1.0); Calcium 10.3 mg/dl (8.6-10.3); Creatinine Clr Calc Pharmacy 82.5 ml/min; Est GFR (African American) 85.7 ml/min; Globulin 4.7 gm/dl (2.5-4.0); Magnesium 2.1 mg/dl (1.7-2.4); Potassium 4.5 mmol/L (3.5-5.1); Total Protein 8.5 gm/dl (6.0-8.3)
[2023-04-07 12:19] LABS: Troponin I High Sensitivity 6.4 pg/ml (0-20)
--- NOTE | 2023-04-07 12:22 | XRay Report ---
XR chest 1V portable HISTORY: 72 years-old Male fall from standing acute chest trauma status post fall COMPARISON: 03/16/2023 TECHNIQUE: AP view of the chest FINDINGS: Cardiac silhouette is enlarged. Atherosclerosis of aorta. Mild right hemidiaphragmatic elevation. Chr onic interstitial coarsening without pneumothorax, pleural effusion or airspace consolidation. Healed chronic left-sided rib fractures. Degenerative changes of the shoulders and spine. IMPRESSION: No acute process of the chest. ACT 112: Negative or not required by law. The above report was generated using voice recognition software. It may contain grammatical, syntax o r spelling errors. Electronically signed by: Mike Su M.D. 04/07/2023 12:21 PM
--- NOTE | 2023-04-07 12:27 | XRay Report ---
XR pelvis 1-2V routine HISTORY: 72 years-old Male fall out of wheelchair acute pelvic pain status post fall COMPARISON: 04/09/2019 TECHNIQUE: AP view of the pelvis FINDINGS: Demineralized appearance of the bones with mild to moderate osteoarthritis of the hips. Right chronic -appearing pelvic ring fracture deformities. No acute fracture, dislocation or avascular necrosis lyric ntified. Moderate degeneration of the SI joints. IMPRESSION: No acute fracture or dislocation. ACT 112: Negative or not required by law. The above report was generated using voice recognition software. It may contain grammatical, syntax o r spelling errors. Electronically signed by: Mike Su M.D. 04/07/2023 12:26 PM
--- NOTE | 2023-04-07 12:44 | Electrocardiogram Report ---
Test Reason : Blood Pressure : / mmHG Vent. Rate : 095 BPM Atrial Rate : 095 BPM P-R Int : 212 ms QRS Dur : 072 ms QT Int : 338 ms P-R-T Axes : 088 058 001 degrees QTc Int : 424 ms Poor data quality, interpretation may be adversely affected Sinus rhythm with 1st degree A-V block Low voltage QRS Nonspecific ST and T wave abnormality Abnormal ECG When compared with ECG of 20-MAR-2023 18:27, Vent. rate has increased BY [address] more elevated in Inferior leads ST now depressed in Lateral leads Nonspecific T wave abnormality, worse in Anterior leads Confirmed by Juancho Mccarthy ([id number]) on 04/07/2023 12:44:36 PM Referred By: Confirmed By:Cruz Mccarthy
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
[2023-04-07 15:01] LABS: Appearance Urine Clear (Clear); Bacteria Urine Automated Negative (Negative); Bilirubin Urine Negative (Negative); Blood Urine Negative (Negative); Color Urine Yellow; Epithelial Cell Urine Auto 0-5 /lpf (0-5); Glucose Urine UA Negative (Negative); Ketones Urine Negative (Negative); Leukocyte Esterase Urine Negative (Negative); Nitrite Urine Negative (Negative); Protein Urine Trace (Negative); RBC Urine Automated 0-4 /hpf (0-4); Urobilinogen Urine Negative (Negative)
[2023-04-07 15:16] LABS: C Reactive Protein 9.19 mg/dl (0-0.5)
[2023-04-07] MEDS: CEFEPIME 2,000 MG in SYRINGE 0 ML IV SCH (16:03)
[2023-04-07] MEDS: METOPROLOL TARTRATE 50 MG TAB PO SCH (21:17)
[2023-04-07] MEDS: GABAPENTIN 300 MG CAP PO SCH (21:17)
[2023-04-08] MEDS: CEFEPIME 2,000 MG in SYRINGE 0 ML IV SCH ×4 (00:22→23:27)
[2023-04-08 07:44] LABS: Basophils # (auto) 0.12 K/uL (0.00-0.20); Eosinophils # (auto) 0.66 K/uL (0.00-0.50); Eosinophils % (auto) 5.7 %; Hematocrit (blood only) 35.8 % (42.0-52.0); Hemoglobin 12.1 g/dl (14.0-18.0); Immature Granulocytes # (auto) 0.05 K/uL (0.01-0.20); Immature Granulocytes % (auto) 0.4 %; Lymphocytes % (auto) 19.9 %; Mean Corpuscular Hgb Conc 33.8 g/dL (32.0-36.0); Mean Corpuscular Volume 97.5 fL (80.0-100.0); Mean Platelet Volume 10.5 fL (9.4-12.4); Monocytes # (auto) 1.32 K/uL (0.11-0.59); Monocytes % (auto) 11.4 %; Neutrophils # (auto) 7.08 K/uL (1.40-6.50); Neutrophils % (auto) 61.6 %; Platelet Count 390 K/uL (130-400); RDW Coefficient of Variation 13.2 % (11.5-14.5); RDW Standard Deviation 47.3 fL (36.4-46.3); Red Blood Count 3.67 M/uL (4.70-6.10); White Blood Count 11.53 K/ul (4.8-10.8)
[2023-04-08 08:14] LABS: Anion Gap 6 (3-11); BUN Creatinine Ratio 28.6 (10-20); Blood Urea Nitrogen 24 mg/dl (6-23); C Reactive Protein 8.33 mg/dl (0-0.5); Calcium 9.3 mg/dl (8.6-10.3); Carbon Dioxide 26 mmol/L (21-32); Chloride 106 mmol/L (98-107); Creatinine Clr Calc Pharmacy 99.2 ml/min; Est GFR (African American) 101.4 ml/min; Est GFR (Non-African American) 87.5 ml/min; Glucose 99 mg/dl (70-99(Fasting)); Sodium 138 mmol/L (136-145)
[2023-04-08] MEDS ORDERED: ATORVASTATIN 10 MG TAB PO SCH (09:00)
[2023-04-08] MEDS: ASPIRIN 81 MG ECTAB PO SCH (09:22)
[2023-04-08] MEDS: FINASTERIDE 5 MG TAB PO SCH (09:22)
[2023-04-08] MEDS: lisinopril 5 MG TAB PO SCH (09:23)
[2023-04-08] MEDS: GABAPENTIN 300 MG CAP PO SCH ×3 (09:23→19:48)
[2023-04-08] MEDS: METOPROLOL TARTRATE 50 MG TAB PO SCH ×2 (09:23→19:47)
[2023-04-08] MEDS: TAMSULOSIN HCL 0.4 MG CAP PO SCH (09:24)
[2023-04-08] MEDS: PANTOprazole 40 MG TAB PO SCH (09:24)
[2023-04-08] MEDS: HEPARIN SOD 5,000 UNIT/0.5 ML VIAL SQ SCH ×2 (09:25→18:38)
--- NOTE | 2023-04-08 12:27 | Hospitalist Progress Note ---
Date of Service April 08, 2023 Assessment & Plan (1) Recurrent falls: Plan: Recurrent falls, deconditioning, weakness Global deconditioning, recurrent falls. Patient has slipped when trying to transfer to wheelchair and is too weak to get off the ground, multiple EMS calls for such Does appear to have recurrent/incompletely treated left lower extremity cellulitis; however he is not septic and suspect his baseline level of strength is insufficient for safety in his current home environment We will admit with treatment of cellulitis, PT/OT ordered, office of aging contacted by CM on admission see admitting HPI -Awaiting PT eval (2) Recurrent cellulitis: Plan: Patient has bilateral chronic venous stasis changes, left lower extremity is asymmetrically warm, erythematous, and much more tender compared to the right and with active purulent drainage Leukocytosis of 14 Recently treated for MSSA/Pseudomonas cellulitis CRP elevated Left-sided surface wound cultures ordered Prior wound cultures with pansensitive Pseudomonas, Staph aureus intermediate sensitivity to clindamycin otherwise no additive resistance Patient had completed course of antibiotics as outpatient with Levaquin as directed Will resume cefepime every 8 hours and also Daptomycin wound care -Upon discharge, transition to PO antibiotics (3) Generalized weakness: Plan: Has not (4) Asplenia: Plan: Noted, s/p splenectomy 29 (5) HTN (hypertension): Plan: Stable, continue lisinopril/metoprolol Plan Stable issues: BPH, continue tamsulosin/finasteride GERD: Continue PPI DVT prophylaxis:Increased risk for bleeding due to recurrent falls, but cannot be on SCDs due to lower extremity pain/cellulitis. Heparin subq CODE STATUS: Full code Diet: Heart healthy Disposition: Medical/surgical Admission and Anticipated Discharge Date Admission Date: April 07, 2023 Subjective patient seen and examined, worried about his wounds Review of Systems Review of Systems: All systems reviewed are negative, apart from the ones contained in the history. Physical Exam Physical Exam: The patient is awake, alert and oriented 3, well developed and well nourished, normocephalic and atraumatic, lying in bed and in no acute distress. HEENT--PERRL, EOMI, mucous membranes and oropharynx mildly dry Neck--supple. No JVD. No bruits. Thyroid normal, trachea midline, no adenopathy. Heart--normal S1 and S2. No murmurs, rubs or gallops. Lungs--clear bilaterally, no respiratory distress, no accessory muscle use. Abdomen--normal bowel sounds and soft. Mild epigastric and left sided abdominal pain Extremities--no cyanosis or clubbing. No edema. Dermatologic--bilateral lower extremity cellulitis, Neurologic--cranial nerves II through XII grossly intact. Rheumatologic--normal range of motion. Psychiatric--normal affect. Results & Data Results & Data Vital Signs (Past 12 Hours) Vital Signs Temp Pulse Resp BP Pulse Ox O2 Del Method 04/08/23 09:15 Room Air 04/08/23 09:19 85 123/65 04/08/23 06:54 98.2 F 71 18 114/70 95 Room Air PG Care Time/CCT Total # of Minutes Spent Total Time Spent with Patient: Total time spent is greater than 50% in coordination of care (as documented) at patient's floor/unit and/or counseling patient: Coding Level of Care Code 09472 SUB INP/OBS CARE 2/35MIN Diagnoses Recurrent falls R29.6 Recurrent cellulitis L03.90 Generalized weakness R53.1 Asplenia Q89.01 HTN (hypertension) I10 Hypertension type: essential hypertension Time Spent (min) 35 (5) HTN (hypertension) Hypertension type: essential hypertension Qualified Code(s): I10 - Essential (primary) hypertension
[2023-04-08] MEDS: DAPTOmycin 350 MG in SYRINGE 0 ML IV SCH (14:00)
[2023-04-09] MEDS: HEPARIN SOD 5,000 UNIT/0.5 ML VIAL SQ SCH ×3 (02:32→18:21)
[2023-04-09 08:16] LABS: Basophils # (auto) 0.12 K/uL (0.00-0.20); Basophils % (auto) 1.2 %; Eosinophils % (auto) 9.1 %; Hematocrit (blood only) 36.2 % (42.0-52.0); Immature Granulocytes # (auto) 0.03 K/uL (0.01-0.20); Immature Granulocytes % (auto) 0.3 %; Lymphocytes # (auto) 2.33 K/uL (1.20-3.40); Lymphocytes % (auto) 23.5 %; Mean Corpuscular Hemoglobin 32.5 pg (25.0-34.0); Mean Corpuscular Hgb Conc 33.1 g/dL (32.0-36.0); Mean Corpuscular Volume 98.1 fL (80.0-100.0); Mean Platelet Volume 10.7 fL (9.4-12.4); Monocytes # (auto) 1.15 K/uL (0.11-0.59); Monocytes % (auto) 11.6 %; Neutrophils # (auto) 5.39 K/uL (1.40-6.50); Neutrophils % (auto) 54.3 %; Platelet Count 385 K/uL (130-400); RDW Coefficient of Variation 13.2 % (11.5-14.5); RDW Standard Deviation 46.8 fL (36.4-46.3); Red Blood Count 3.69 M/uL (4.70-6.10); White Blood Count 9.92 K/ul (4.8-10.8)
[2023-04-09] MEDS: METOPROLOL TARTRATE 50 MG TAB PO SCH ×2 (08:16→19:38)
[2023-04-09] MEDS: CEFEPIME 2,000 MG in SYRINGE 0 ML IV SCH ×2 (08:16→15:47)
[2023-04-09] MEDS: lisinopril 5 MG TAB PO SCH (08:17)
[2023-04-09] MEDS: FINASTERIDE 5 MG TAB PO SCH (08:17)
[2023-04-09] MEDS: PANTOprazole 40 MG TAB PO SCH (08:17)
[2023-04-09] MEDS: ASPIRIN 81 MG ECTAB PO SCH (08:17)
[2023-04-09] MEDS: GABAPENTIN 300 MG CAP PO SCH ×3 (08:17→19:38)
[2023-04-09] MEDS: TAMSULOSIN HCL 0.4 MG CAP PO SCH (08:17)
[2023-04-09 08:37] LABS: BUN Creatinine Ratio 29.2 (10-20); Calcium 9.5 mg/dl (8.6-10.3); Creatinine Clr Calc Pharmacy 86.8 ml/min; Est GFR (African American) 91.2 ml/min; Est GFR (Non-African American) 78.7 ml/min; Potassium 4.4 mmol/L (3.5-5.1)
[2023-04-09] MEDS: DAPTOmycin 350 MG in SYRINGE 0 ML IV SCH (14:16)
--- NOTE | 2023-04-09 18:02 | Hospitalist Progress Note ---
Date of Service April 09, 2023 Assessment & Plan (1) Recurrent falls: Plan: Recurrent falls, deconditioning, weakness Global deconditioning, recurrent falls. Patient has slipped when trying to transfer to wheelchair and is too weak to get off the ground, multiple EMS calls for such Does appear to have recurrent/incompletely treated left lower extremity cellulitis; however he is not septic and suspect his baseline level of strength is insufficient for safety in his current home environment continue treatment of cellulitis, PT/OT ordered, office of aging contacted by CM (2) Recurrent cellulitis: Plan: Patient has bilateral chronic venous stasis changes, left lower extremity is asymmetrically warm, erythematous, and much more tender compared to the right and with active purulent drainage Leukocytosis of 14. Trended down to normal today Recently treated for MSSA/Pseudomonas cellulitis CRP elevated Left-sided surface wound cultures ordered Prior wound cultures with pansensitive Pseudomonas, Staph aureus intermediate sensitivity to clindamycin otherwise no additive resistance Patient had completed course of antibiotics as outpatient with Levaquin as directed Will resume cefepime every 8 hours and also Daptomycin wound care -Upon discharge, transition to PO antibiotics (3) Generalized weakness: (4) Asplenia: Plan: Noted, s/p splenectomy 29 (5) HTN (hypertension): Plan: Stable, continue lisinopril/metoprolol (6) Pressure ulcer, buttock: Plan: consult wound care Plan Stable issues: BPH, continue tamsulosin/finasteride GERD: Continue PPI DVT prophylaxis:Increased risk for bleeding due to recurrent falls, but cannot be on SCDs due to lower extremity pain/cellulitis. Heparin subq CODE STATUS: Full code Diet: Heart healthy Disposition: Medical/surgical Admission and Anticipated Discharge Date Admission Date: April 08, 2023 Subjective Patient feels well overall. Denies chest pain or shortness of breath. Review of Systems Review of Systems: All systems reviewed & are unremarkable except as noted in Subjective Physical Exam Physical Exam: General: Awake, conversant Heart: S1, S2/regular rate and rhythm, no murmur rubs or gallops Lungs: Clear to auscultation bilaterally. Normal effort Abdomen: Soft/nontender/nondistended. No hepatosplenomegaly Extremities: No clubbing/cyanosis. improving bilateral lower extremity cellulitis with fading redness from the Demarcated borders. Behavior: Appropriate, cooperative Results & Data Results & Data Vital Signs (Past 12 Hours) Vital Signs Temp Pulse Resp BP Pulse Ox O2 Del Method 04/09/23 14:55 36.9 C 60 18 115/68 94 Room Air 04/09/23 08:41 36.6 C 59 L 16 117/68 95 Room Air Laboratory Results Abnormal lab results 04/09/23 04/09/23 Range/Units 07:01 07:01 RBC 3.69 L (4.70-6.10) M/uL Hgb 12.0 L (14.0-18.0) g/dl Hct 36.2 L (42.0-52.0) % RDW Std Deviation 46.8 H (36.4-46.3) fL [place] # (Auto) 1.15 H (0.11-0.59) K/uL Eos # (Auto) 0.90 H (0.00-0.50) K/uL BUN 28 H (6-23) mg/dl BUN/Creatinine Ratio 29.2 H (10-20) Glucose 104 H (70-99(Fasting)) mg/dl PG Care Time/CCT Total # of Minutes Spent Total Time Spent with Patient: Total time spent is greater than 50% in coordination of care (as documented) at patient's floor/unit and/or counseling patient: Coding Level of Care Code 63552 SUB INP/OBS CARE 2/35MIN Diagnoses Recurrent falls R29.6 Recurrent cellulitis L03.90 Generalized weakness R53.1 Asplenia Q89.01 HTN (hypertension) I10 Hypertension type: essential hypertension Pressure ulcer, buttock L89.309 (5) HTN (hypertension) Hypertension type: essential hypertension Qualified Code(s): I10 - Essential (primary) hypertension
[2023-04-10] MEDS: CEFEPIME 2,000 MG in SYRINGE 0 ML IV SCH ×3 (00:24→16:46)
[2023-04-10] MEDS: HEPARIN SOD 5,000 UNIT/0.5 ML VIAL SQ SCH ×3 (02:23→18:09)
[2023-04-10] MEDS: lisinopril 5 MG TAB PO SCH (08:09)
[2023-04-10] MEDS: PANTOprazole 40 MG TAB PO SCH (08:10)
[2023-04-10] MEDS: FINASTERIDE 5 MG TAB PO SCH (08:10)
[2023-04-10] MEDS: ASPIRIN 81 MG ECTAB PO SCH (08:10)
[2023-04-10] MEDS: TAMSULOSIN HCL 0.4 MG CAP PO SCH (08:10)
[2023-04-10] MEDS: GABAPENTIN 300 MG CAP PO SCH ×3 (08:10→20:49)
[2023-04-10] MEDS: METOPROLOL TARTRATE 50 MG TAB PO SCH ×2 (08:20→20:48)
[2023-04-10 08:45] LABS: Basophils # (auto) 0.11 K/uL (0.00-0.20); Basophils % (auto) 1.2 %; Eosinophils # (auto) 0.79 K/uL (0.00-0.50); Eosinophils % (auto) 8.3 %; Hematocrit (blood only) 36.4 % (42.0-52.0); Hemoglobin 12.3 g/dl (14.0-18.0); Immature Granulocytes # (auto) 0.05 K/uL (0.01-0.20); Immature Granulocytes % (auto) 0.5 %; Lymphocytes # (auto) 2.36 K/uL (1.20-3.40); Lymphocytes % (auto) 24.8 %; Mean Corpuscular Hemoglobin 32.7 pg (25.0-34.0); Mean Corpuscular Hgb Conc 33.8 g/dL (32.0-36.0); Mean Corpuscular Volume 96.8 fL (80.0-100.0); Mean Platelet Volume 10.2 fL (9.4-12.4); Monocytes # (auto) 1.04 K/uL (0.11-0.59); Monocytes % (auto) 10.9 %; Neutrophils # (auto) 5.17 K/uL (1.40-6.50); Neutrophils % (auto) 54.3 %; Platelet Count 372 K/uL (130-400); RDW Coefficient of Variation 13.2 % (11.5-14.5); RDW Standard Deviation 47.2 fL (36.4-46.3); Red Blood Count 3.76 M/uL (4.70-6.10); White Blood Count 9.52 K/ul (4.8-10.8)
[2023-04-10 08:56] LABS: BUN Creatinine Ratio 27.9 (10-20); Calcium 9.5 mg/dl (8.6-10.3); Creatinine Clr Calc Pharmacy 96.9 ml/min; Est GFR (African American) 100.4 ml/min; Est GFR (Non-African American) 86.6 ml/min; Potassium 4.4 mmol/L (3.5-5.1)
[2023-04-10] MEDS ORDERED: MICONAZOLE NITRATE POWDER 85 GM EXT PRN (09:27)
[2023-04-10] MEDS: traMADol HCL 50 MG TABLET PO PRN ×2 (09:52→19:31)
[2023-04-10] MEDS: DAPTOmycin 350 MG in SYRINGE 0 ML IV SCH (13:23)
--- NOTE | 2023-04-10 17:31 | Hospitalist Progress Note ---
Date of Service April 10, 2023 Assessment & Plan (1) Recurrent falls: Plan: Recurrent falls, deconditioning, weakness Global deconditioning, recurrent falls. Patient has slipped when trying to transfer to wheelchair and is too weak to get off the ground, multiple EMS calls for such Does appear to have recurrent/incompletely treated left lower extremity cellulitis; however he is not septic and suspect his baseline level of strength is insufficient for safety in his current home environment continue treatment of cellulitis, PT OT recommended rehab However patient is unwilling to go to rehab. He wants to go home with home health services when he is ready for discharge (2) Recurrent cellulitis: Plan: Patient has bilateral chronic venous stasis changes, left lower extremity is asymmetrically warm, erythematous, and much more tender compared to the right and with active purulent drainage Leukocytosis of 14. Trended down to normal today Recently treated for MSSA/Pseudomonas cellulitis CRP elevated Left-sided surface wound cultures ordered Prior wound cultures with pansensitive Pseudomonas, Staph aureus intermediate sensitivity to clindamycin otherwise no additive resistance Patient had completed course of antibiotics as outpatient with Levaquin as directed Will resume cefepime every 8 hours . We will discontinue daptomycin and follow clinically wound care -Upon discharge, transition to PO antibiotics (3) Generalized weakness: (4) Asplenia: Plan: Noted, s/p splenectomy 29 (5) HTN (hypertension): Plan: Stable, continue lisinopril/metoprolol (6) Pressure ulcer, buttock: Plan: consult wound care Plan Stable issues: BPH, continue tamsulosin/finasteride GERD: Continue PPI DVT prophylaxis:Increased risk for bleeding due to recurrent falls, but cannot be on SCDs due to lower extremity pain/cellulitis. Heparin subq CODE STATUS: Full code Diet: Heart healthy Disposition: Medical/surgical Admission and Anticipated Discharge Date Admission Date: April 08, 2023 Subjective patient refuses to go to rehab even though therapy recommends rehab. He would like to go home with home health services When he is ready for discharge. he says that his legs are feeling better overall. Review of Systems Review of Systems: All systems reviewed & are unremarkable except as noted in Subjective Physical Exam Physical Exam: General: Awake, conversant Heart: S1, S2/regular rate and rhythm, no murmur rubs or gallops Lungs: Clear to auscultation bilaterally. Normal effort Abdomen: Soft/nontender/nondistended. No hepatosplenomegaly Extremities: No clubbing/cyanosis. improving bilateral lower extremity cellulitis with fading redness from the Demarcated borders. Behavior: Appropriate, cooperative Results & Data Results & Data Vital Signs (Past 12 Hours) Vital Signs Temp Pulse Resp BP Pulse Ox O2 Del Method 04/10/23 15:25 36.8 C 68 18 114/68 96 Room Air 04/10/23 07:37 36.7 C 56 L 18 118/67 94 Room Air Laboratory Results Abnormal lab results 04/10/23 04/10/23 Range/Units 08:00 08:00 RBC 3.76 L (4.70-6.10) M/uL Hgb 12.3 L (14.0-18.0) g/dl Hct 36.4 L (42.0-52.0) % RDW Std Deviation 47.2 H (36.4-46.3) fL [place] # (Auto) 1.04 H (0.11-0.59) K/uL Eos # (Auto) 0.79 H (0.00-0.50) K/uL BUN 24 H (6-23) mg/dl BUN/Creatinine Ratio 27.9 H (10-20) Glucose 100 H (70-99(Fasting)) mg/dl PG Care Time/CCT Total # of Minutes Spent Total Time Spent with Patient: Total time spent is greater than 50% in coordination of care (as documented) at patient's floor/unit and/or counseling patient: Coding Level of Care Code 06114 SUB INP/OBS CARE 2/35MIN Diagnoses Recurrent falls R29.6 Recurrent cellulitis L03.90 Generalized weakness R53.1 Asplenia Q89.01 HTN (hypertension) I10 Hypertension type: essential hypertension Pressure ulcer, buttock L89.309 (5) HTN (hypertension) Hypertension type: essential hypertension Qualified Code(s): I10 - Essential (primary) hypertension
[2023-04-11] MEDS: ACETAMINOPHEN 325 MG TAB PO PRN (00:40)
[2023-04-11] MEDS: CEFEPIME 2,000 MG in SYRINGE 0 ML IV SCH ×3 (00:41→14:41)
[2023-04-11] MEDS: HEPARIN SOD 5,000 UNIT/0.5 ML VIAL SQ SCH ×3 (01:00→17:13)
[2023-04-11] MEDS: METOPROLOL TARTRATE 50 MG TAB PO SCH ×2 (08:15→20:21)
[2023-04-11] MEDS: TAMSULOSIN HCL 0.4 MG CAP PO SCH (09:14)
[2023-04-11] MEDS: ASPIRIN 81 MG ECTAB PO SCH (09:14)
[2023-04-11] MEDS: lisinopril 5 MG TAB PO SCH (09:14)
[2023-04-11] MEDS: FINASTERIDE 5 MG TAB PO SCH (09:14)
[2023-04-11] MEDS: PANTOprazole 40 MG TAB PO SCH (09:14)
[2023-04-11] MEDS: GABAPENTIN 300 MG CAP PO SCH ×3 (09:15→20:21)
--- NOTE | 2023-04-11 14:20 | Hospitalist Progress Note ---
Date of Service April 11, 2023 Assessment & Plan (1) Recurrent falls: Plan: Recurrent falls, deconditioning, weakness Global deconditioning, recurrent falls. Patient has slipped when trying to transfer to wheelchair and is too weak to get off the ground, multiple EMS calls for such Does appear to have recurrent/incompletely treated left lower extremity cellulitis; however he is not septic and suspect his baseline level of strength is insufficient for safety in his current home environment continue treatment of cellulitis, PT OT recommended rehab However patient is unwilling to go to rehab. He wants to go home with home health services when he is ready for discharge (2) Recurrent cellulitis: Plan: Patient has bilateral chronic venous stasis changes, left lower extremity is asymmetrically warm, erythematous, and much more tender compared to the right and with active purulent drainage Leukocytosis of 14. Trended down to normal today Recently treated for MSSA/Pseudomonas cellulitis CRP elevated Left-sided surface wound cultures ordered Prior wound cultures with pansensitive Pseudomonas, Staph aureus intermediate sensitivity to clindamycin otherwise no additive resistance Patient had completed course of antibiotics as outpatient with Levaquin as directed continue cefepime every 8 hours . We will discontinue daptomycin and follow clinically We will switch to p.o. antibiotics tomorrow wound care -Upon discharge, transition to PO antibiotics (3) Generalized weakness: (4) Asplenia: Plan: Noted, s/p splenectomy 29 (5) HTN (hypertension): Plan: Stable, continue lisinopril/metoprolol (6) Pressure ulcer, buttock: Plan: consult wound care Stage III right buttock pressure injury Patient also has Stage I right and left lower leg wounds which is being cared for by wound care. Plan Stable issues: BPH, continue tamsulosin/finasteride GERD: Continue PPI DVT prophylaxis:Increased risk for bleeding due to recurrent falls, but cannot be on SCDs due to lower extremity pain/cellulitis. Heparin subq CODE STATUS: Full code Diet: Heart healthy Admission and Anticipated Discharge Date Admission Date: April 08, 2023 Subjective patient continues to deny chest pain or shortness of breath. Bilateral lower extremity cellulitis Is improving. Review of Systems Review of Systems: All systems reviewed & are unremarkable except as noted in Subjective Physical Exam Physical Exam: General: Awake, conversant Heart: S1, S2/regular rate and rhythm, no murmur rubs or gallops Lungs: Clear to auscultation bilaterally. Normal effort Abdomen: Soft/nontender/nondistended. No hepatosplenomegaly Extremities: No clubbing/cyanosis. improving bilateral lower extremity cellulitis with fading redness from the Demarcated borders. Behavior: Appropriate, cooperative Results & Data Results & Data Vital Signs (Past 12 Hours) Vital Signs Temp Pulse Resp BP Pulse Ox O2 Del Method 04/11/23 10:30 36.6 C 55 L 14 149/86 H 95 Room Air 04/11/23 07:40 36.6 C 55 L 12 123/75 95 Room Air 04/11/23 07:40 Room Air PG Care Time/CCT Total # of Minutes Spent Total Time Spent with Patient: Total time spent is greater than 50% in coordination of care (as documented) at patient's floor/unit and/or counseling patient: Coding Level of Care Code 51708 SUB INP/OBS CARE 2/35MIN Diagnoses Recurrent falls R29.6 Recurrent cellulitis L03.90 Generalized weakness R53.1 Asplenia Q89.01 Essential hypertension I10 Hypertension type: essential hypertension Pressure ulcer, buttock L89.309 (5) HTN (hypertension) Hypertension type: essential hypertension Qualified Code(s): I10 - Essential (primary) hypertension
[2023-04-11] MEDS: traMADol HCL 50 MG TABLET PO PRN (20:20)
[2023-04-12] MEDS: CEFEPIME 2,000 MG in SYRINGE 0 ML IV SCH ×2 (00:56→07:50)
[2023-04-12] MEDS: HEPARIN SOD 5,000 UNIT/0.5 ML VIAL SQ SCH ×3 (01:02→17:44)
[2023-04-12] MEDS: FINASTERIDE 5 MG TAB PO SCH (07:51)
[2023-04-12] MEDS: GABAPENTIN 300 MG CAP PO SCH ×3 (07:51→19:33)
[2023-04-12] MEDS: lisinopril 5 MG TAB PO SCH (07:51)
[2023-04-12] MEDS: ASPIRIN 81 MG ECTAB PO SCH (07:51)
[2023-04-12] MEDS: TAMSULOSIN HCL 0.4 MG CAP PO SCH (07:51)
[2023-04-12] MEDS: PANTOprazole 40 MG TAB PO SCH (07:51)
[2023-04-12] MEDS: ACETAMINOPHEN 325 MG TAB PO PRN ×2 (08:52→18:35)
[2023-04-12] MEDS: METOPROLOL TARTRATE 50 MG TAB PO SCH ×2 (08:53→19:33)
[2023-04-12 09:20] LABS: Hematocrit (blood only) 38.4 % (42.0-52.0); Hemoglobin 13.1 g/dl (14.0-18.0); Mean Corpuscular Hemoglobin 33.4 pg (25.0-34.0); Mean Corpuscular Hgb Conc 34.1 g/dL (32.0-36.0); Mean Platelet Volume 10.5 fL (9.4-12.4); Platelet Count 378 K/uL (130-400); RDW Coefficient of Variation 13.3 % (11.5-14.5); RDW Standard Deviation 47.5 fL (36.4-46.3); Red Blood Count 3.92 M/uL (4.70-6.10); White Blood Count 8.96 K/ul (4.8-10.8)
[2023-04-12] MEDS: CIPROFLOXACIN 500 MG TAB PO SCH ×2 (10:29→19:32)
[2023-04-12] MEDS: cephALEXin 500 MG CAP PO SCH ×3 (13:36→19:32)
--- NOTE | 2023-04-12 15:31 | Hospitalist Progress Note ---
Date of Service April 12, 2023 Assessment & Plan (1) Recurrent falls: Plan: Recurrent falls, deconditioning, weakness Global deconditioning, recurrent falls. Patient has slipped when trying to transfer to wheelchair and is too weak to get off the ground, multiple EMS calls for such Does appear to have recurrent/incompletely treated left lower extremity cellulitis; however he is not septic and suspect his baseline level of strength is insufficient for safety in his current home environment continue treatment of cellulitis, PT OT recommended rehab However patient is unwilling to go to rehab. He wants to go home with home health services when he is ready for discharge Patient cannot use a cane or walker safely in a wheelchair would improve ADLs in the home (2) Recurrent cellulitis: Plan: Patient has bilateral chronic venous stasis changes, left lower extremity is asymmetrically warm, erythematous, and much more tender compared to the right and with active purulent drainage Leukocytosis of 14. Trended down to normal today Recently treated for MSSA/Pseudomonas cellulitis CRP elevated Left-sided surface wound cultures ordered Prior wound cultures with pansensitive Pseudomonas, Staph aureus intermediate sensitivity to clindamycin otherwise no additive resistance Patient had completed course of antibiotics as outpatient with Levaquin as directed continue cefepime every 8 hours . We will discontinue daptomycin and follow clinically We will switch to p.o. antibiotics Today. Started ciprofloxacin and Keflex wound care (3) Generalized weakness: (4) Asplenia: Plan: Noted, s/p splenectomy 29 (5) HTN (hypertension): Plan: Stable, continue lisinopril/metoprolol (6) Pressure ulcer, buttock: Plan: consult wound care Stage III right buttock pressure injury Patient also has Stage I right and left lower leg wounds which is being cared for by wound care. Plan Stable issues: BPH, continue tamsulosin/finasteride GERD: Continue PPI DVT prophylaxis:Increased risk for bleeding due to recurrent falls, but cannot be on SCDs due to lower extremity pain/cellulitis. Heparin subq CODE STATUS: Full code Diet: Heart healthy Admission and Anticipated Discharge Date Admission Date: April 08, 2023 Subjective patient feels well overall. Denies chest pain or shortness of breath. Leg cellulitis improving. Review of Systems Review of Systems: All systems reviewed & are unremarkable except as noted in Subjective Physical Exam Physical Exam: General: Awake, conversant Heart: S1, S2/regular rate and rhythm, no murmur rubs or gallops Lungs: Clear to auscultation bilaterally. Normal effort Abdomen: Soft/nontender/nondistended. No hepatosplenomegaly Extremities: No clubbing/cyanosis. improving bilateral lower extremity cellulitis with fading redness from the Demarcated borders. Behavior: Appropriate, cooperative Results & Data Results & Data Vital Signs (Past 12 Hours) Vital Signs Temp Pulse Resp BP Pulse Ox O2 Del Method 04/12/23 15:10 36.6 C 55 L 16 105/67 95 Room Air 04/12/23 08:51 89 04/12/23 08:08 Room Air 04/12/23 07:25 36.3 C L 62 16 111/67 95 Room Air Laboratory Results Abnormal lab results 04/12/23 Range/Units 08:47 RBC 3.92 L (4.70-6.10) M/uL Hgb 13.1 L (14.0-18.0) g/dl Hct 38.4 L (42.0-52.0) % RDW Std Deviation 47.5 H (36.4-46.3) fL PG Care Time/CCT Total # of Minutes Spent Total Time Spent with Patient: Total time spent is greater than 50% in coordination of care (as documented) at patient's floor/unit and/or counseling patient: Coding Level of Care Code 94372 SUB INP/OBS CARE 2/35MIN Diagnoses Recurrent falls R29.6 Recurrent cellulitis L03.90 Generalized weakness R53.1 Asplenia Q89.01 Essential hypertension I10 Hypertension type: essential hypertension Pressure ulcer, buttock L89.309 (5) HTN (hypertension) Hypertension type: essential hypertension Qualified Code(s): I10 - Essential (primary) hypertension
[2023-04-12] MEDS: traMADol HCL 50 MG TABLET PO PRN (19:37)
[2023-04-13] MEDS: HEPARIN SOD 5,000 UNIT/0.5 ML VIAL SQ SCH ×3 (01:01→17:01)
[2023-04-13] MEDS: cephALEXin 500 MG CAP PO SCH ×4 (08:13→19:38)
[2023-04-13] MEDS: CIPROFLOXACIN 500 MG TAB PO SCH ×2 (08:13→19:39)
[2023-04-13] MEDS: ASPIRIN 81 MG ECTAB PO SCH (08:13)
[2023-04-13] MEDS: METOPROLOL TARTRATE 50 MG TAB PO SCH ×2 (08:14→19:38)
[2023-04-13] MEDS: TAMSULOSIN HCL 0.4 MG CAP PO SCH (08:14)
[2023-04-13] MEDS: FINASTERIDE 5 MG TAB PO SCH (08:14)
[2023-04-13] MEDS: GABAPENTIN 300 MG CAP PO SCH ×3 (08:14→19:40)
[2023-04-13] MEDS: PANTOprazole 40 MG TAB PO SCH (08:14)
[2023-04-13] MEDS: lisinopril 5 MG TAB PO SCH (08:21)
[2023-04-13 09:35] LABS: Hematocrit (blood only) 38.7 % (42.0-52.0); Hemoglobin 12.8 g/dl (14.0-18.0); Mean Corpuscular Hemoglobin 32.7 pg (25.0-34.0); Mean Corpuscular Hgb Conc 33.1 g/dL (32.0-36.0); Mean Corpuscular Volume 98.7 fL (80.0-100.0); Mean Platelet Volume 10.4 fL (9.4-12.4); Platelet Count 365 K/uL (130-400); RDW Coefficient of Variation 13.2 % (11.5-14.5); RDW Standard Deviation 47.3 fL (36.4-46.3); Red Blood Count 3.92 M/uL (4.70-6.10); White Blood Count 9.12 K/ul (4.8-10.8)
[2023-04-13] MEDS: traMADol HCL 50 MG TABLET PO PRN (10:57)
--- NOTE | 2023-04-13 12:59 | Hospitalist Progress Note ---
Date of Service April 13, 2023 Assessment & Plan (1) Recurrent falls: Plan: Recurrent falls, deconditioning, weakness Global deconditioning, recurrent falls. Patient has slipped when trying to transfer to wheelchair and is too weak to get off the ground, multiple EMS calls for such Does appear to have recurrent/incompletely treated left lower extremity cellulitis; however he is not septic and suspect his baseline level of strength is insufficient for safety in his current home environment continue treatment of cellulitis, PT OT recommended rehab However patient is unwilling to go to rehab. He wants to go home with home health services when he is ready for discharge Patient cannot use a cane or walker safely in a wheelchair would improve ADLs in the home (2) Recurrent cellulitis: Plan: Patient has bilateral chronic venous stasis changes, left lower extremity is asymmetrically warm, erythematous, and much more tender compared to the right and with active purulent drainage Leukocytosis of 14. Trended down to normal Recently treated for MSSA/Pseudomonas cellulitis CRP elevated Left-sided surface wound cultures ordered Prior wound cultures with pansensitive Pseudomonas, Staph aureus intermediate sensitivity to clindamycin otherwise no additive resistance Patient had completed course of antibiotics as outpatient with Levaquin as directed Was on cefepime every 8 hours ., Switched to ciprofloxacin and Keflex Continues to improve on p.o. antibiotics wound care (3) Generalized weakness: (4) Asplenia: Plan: Noted, s/p splenectomy 29 (5) HTN (hypertension): Plan: Stable, continue lisinopril/metoprolol (6) Pressure ulcer, buttock: Plan: consult wound care Stage III right buttock pressure injury Patient also has Stage I right and left lower leg wounds which is being cared for by wound care. Plan Stable issues: BPH, continue tamsulosin/finasteride GERD: Continue PPI DVT prophylaxis:Increased risk for bleeding due to recurrent falls, but cannot be on SCDs due to lower extremity pain/cellulitis. Heparin subq CODE STATUS: Full code Diet: Heart healthy Likely discharge tomorrow. Informed case management about potential discharge with home health services tomorrow Admission and Anticipated Discharge Date Admission Date: April 08, 2023 Subjective Patient feels well. Denies chest pain or shortness of breath. Cellulitis improving on p.o. antibiotic Review of Systems Review of Systems: All systems reviewed & are unremarkable except as noted in Subjective Physical Exam Physical Exam: General: Awake, conversant Heart: S1, S2/regular rate and rhythm, no murmur rubs or gallops Lungs: Clear to auscultation bilaterally. Normal effort Abdomen: Soft/nontender/nondistended. No hepatosplenomegaly Extremities: No clubbing/cyanosis. improving bilateral lower extremity celluli tis with fading redness from the Demarcated borders. Behavior: Appropriate, cooperative Results & Data Results & Data Vital Signs (Past 12 Hours) Vital Signs Temp Pulse Resp BP Pulse Ox O2 Del Method 04/13/23 07:34 36.5 C 55 L 18 109/68 95 Room Air 04/13/23 07:25 Room Air PG Care Time/CCT Total # of Minutes Spent Total Time Spent with Patient: Total time spent is greater than 50% in coordination of care (as documented) at patient's floor/unit and/or counseling patient: Coding Level of Care Code 21019 SUB INP/OBS CARE 2/35MIN Diagnoses Recurrent falls R29.6 Recurrent cellulitis L03.90 Generalized weakness R53.1 Asplenia Q89.01 Essential hypertension I10 Hypertension type: essential hypertension Pressure ulcer, buttock L89.309 (5) HTN (hypertension) Hypertension type: essential hypertension Qualified Code(s): I10 - Essential (primary) hypertension
[2023-04-13] MEDS: ACETAMINOPHEN 325 MG TAB PO PRN (20:13)
[2023-04-14] MEDS: HEPARIN SOD 5,000 UNIT/0.5 ML VIAL SQ SCH ×2 (01:29→11:10)
[2023-04-14 07:04] LABS: Hematocrit (blood only) 39.5 % (42.0-52.0); Hemoglobin 13.2 g/dl (14.0-18.0); Mean Corpuscular Hemoglobin 32.6 pg (25.0-34.0); Mean Corpuscular Hgb Conc 33.4 g/dL (32.0-36.0); Mean Corpuscular Volume 97.5 fL (80.0-100.0); Mean Platelet Volume 10.5 fL (9.4-12.4); Platelet Count 358 K/uL (130-400); RDW Coefficient of Variation 13.5 % (11.5-14.5); RDW Standard Deviation 47.8 fL (36.4-46.3); Red Blood Count 4.05 M/uL (4.70-6.10); White Blood Count 9.96 K/ul (4.8-10.8)
[2023-04-14] MEDS: TAMSULOSIN HCL 0.4 MG CAP PO SCH (08:03)
[2023-04-14] MEDS: FINASTERIDE 5 MG TAB PO SCH (08:03)
[2023-04-14] MEDS: PANTOprazole 40 MG TAB PO SCH (08:03)
[2023-04-14] MEDS: CIPROFLOXACIN 500 MG TAB PO SCH (08:03)
[2023-04-14] MEDS: GABAPENTIN 300 MG CAP PO SCH (08:03)
[2023-04-14] MEDS: lisinopril 5 MG TAB PO SCH (08:05)
[2023-04-14] MEDS: METOPROLOL TARTRATE 50 MG TAB PO SCH ×2 (08:05→08:09)
[2023-04-14] MEDS: cephALEXin 500 MG CAP PO SCH (08:05)
[2023-04-14] MEDS: ASPIRIN 81 MG ECTAB PO SCH (08:06)
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
== END 2023-04-14 12:22 | disposition home health service (06) | DRG 602 ==
LOC: 3N 10:29 → ED 10:29 → SUATTDRO 14:40 → 3N 16:44 → SUATTDRO 04-08 15:32 → 3N 04-09 20:11

== ENCOUNTER 2025-01-08 14:53 | Inpatient (IN) ==
[2025-01-08] MEDS: HYDROmorphone INJ 0.5 MG/0.5 ML SYR IV STA (16:06)
[2025-01-08 16:11] LABS: Hematocrit (blood only) 39.2 % (42.0-52.0); Hemoglobin 13.2 g/dl (14.0-18.0); Immature Granulocytes # (auto) 0.10 K/uL (0.01-0.20); Immature Granulocytes % (auto) 0.7 %; Mean Corpuscular Hemoglobin 35.2 pg (25.0-34.0); Mean Corpuscular Volume 104.5 fL (80.0-100.0); Platelet Count 408 K/uL (130-400); RDW Standard Deviation 61.6 fL (36.4-46.3); Red Blood Count 3.75 M/uL (4.70-6.10); White Blood Count 14.01 K/ul (4.8-10.8)
[2025-01-08 16:28] LABS: Alanine Aminotransferase 10.0 U/L (7-52); Alkaline Phosphatase 86.0 U/L (34-104); Anion Gap 6.0 (3-11); Bilirubin,Total 0.3 mg/dl (0.2-1.0); Blood Urea Nitrogen 23.0 mg/dl (6-23); Calcium 9.0 mg/dl (8.6-10.3); Carbon Dioxide 24.0 mmol/L (21-32); Chloride 104.0 mmol/L (98-107); Creatinine Clr Calc Pharmacy 101.5 ml/min; Glucose 111.0 mg/dl (70-99(Fasting)); Magnesium 1.6 mg/dl (1.7-2.4); Potassium 3.8 mmol/L (3.5-5.1); Sodium 134.0 mmol/L (136-145); Total Protein 6.8 gm/dl (6.0-8.3)
[2025-01-08] MEDS ORDERED: VANCOMYCIN CONSULT ACTIVE PRN (16:50)
[2025-01-08] MEDS: KETOROLAC TROMETHAMINE 15 MG/ML VIAL IV ONE (17:00)
[2025-01-08] MEDS: ACETAMINOPHEN 1,000 MG/100 ML VIAL IV STA (17:00)
[2025-01-08] MEDS: PIPERACILLIN/TAZOBACTAM 4.5 GM/100 ML BAG IV ONE (17:22)
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
--- NOTE | 2025-01-08 18:10 | XRay Report ---
EXAM: XR chest 1V portable CLINICAL HISTORY: Sepsis TECHNIQUE: An X-ray image of the chest is obtained in AP projection. COMPARISON: No prior studies are available for comparison. FINDINGS: Pulmonary Parenchyma: No evidence of consolidation, collapse, or focal opacities. No pulmonary nodules are identified. Veiled blunted left pleural recess, may denote minimal pleural effusion/thickening. No evidence of right pleural effusion or pleural thickening. Heart and Mediastinum: Heart size and shape are normal. No mediastinal widening or masses. No hilar or mediastinal lymphadenopathy. Bony Thorax: Bony thorax appears intact without fractures or deformities. Soft Tissues: Soft tissues overlying the chest wall are unremarkable. IMPRESSION: 1. Veiled blunted left pleural recess, may denote minimal pleural effusion/thickening. 2. Unremarkable rest of the study. Electronically signed by Suraj uA 01-08-2025 6:10 PM
[2025-01-08] MEDS: VANCOMYCIN HCL 2,750 MG in SODIUM CHLORIDE 0.9% 500 ML IV ONE (18:20)
--- NOTE | 2025-01-08 18:23 | XRay Report ---
EXAM: XR foot RT 2V CLINICAL HISTORY: Osteomyelitis TECHNIQUE: X-ray images of the right foot were obtained in anteroposterior (AP) and lateral projections. COMPARISON: No prior studies available for comparison. FINDINGS: Bone Structure: Forefoot soft tissue swelling/edema. No underlying bony destruction or periosteal reaction No evidence of fracture or dislocation. Joint Spaces: Joint spaces are normal. No evidence of joint effusion or subluxation. Soft Tissues: No soft tissue calcifications, or foreign bodies noted. Additional Findings: Mild 1st MTP joint osteoarthritis. Large blunt calcaneal bone spur. IMPRESSION: 1. Mild forefoot soft tissue swelling/edema. No underlying bony destruction or periosteal reaction. 2. No evidence of fracture or dislocation. No obvious radiographic evidence of osteomyelitis. Disclaimer: A subtle bone abnormality or fracture may not be readily apparent on X-rays, thus clinical correlation and further imaging including follow-up CT, MRI, or follow-up X-rays are advised as needed. Electronically signed by Suraj Au 01-08-2025 6:23 PM
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
[2025-01-08 19:49] LABS: Appearance Urine Clear (Clear); Bacteria Urine Automated None Seen (None Seen); Cast Urine Automated 0-2 /lpf (0-2); Epithelial Cell Urine Auto 0-2 /hpf (0-2); Glucose Urine UA Negative (Negative); RBC Urine Automated >20 /hpf (0-2)
[2025-01-08] MEDS ORDERED: NON-FORMULARY MEDICATION (Cpap Supplies misc) SCH (19:51)
[2025-01-08] MEDS ORDERED: NON-FORMULARY MEDICATION (Auto Titrating Cpap misc) SCH (19:51)
[2025-01-08] MEDS: FINASTERIDE 5 MG TAB PO SCH (21:50)
[2025-01-08] MEDS: HYDROmorphone INJ 0.5 MG/0.5 ML SYR IV ONE (21:51)
[2025-01-08] MEDS: GABAPENTIN 300 MG CAP PO SCH (21:53)
[2025-01-08] MEDS: ACETAMINOPHEN 500 MG TAB PO SCH (21:53)
[2025-01-08] MEDS: METOPROLOL TARTRATE 50 MG TAB PO SCH (21:54)
[2025-01-08] MEDS: PIPERACILLIN/TAZOBACTAM 4.5 GM/100 ML BAG IV SCH (22:01)
[2025-01-09] MEDS: KETOROLAC TROMETHAMINE 15 MG/ML VIAL IV PRN (00:31)
[2025-01-09] MEDS: VANCOMYCIN HCL 1,250 MG in SODIUM CHLORIDE 0.9% 250 ML IV SCH (02:20)
[2025-01-09] MEDS: HYDROmorphone INJ 0.5 MG/0.5 ML SYR IV PRN (03:13)
--- NOTE | 2025-01-09 05:38 | Electrocardiogram Report ---
Test Reason : Blood Pressure : */* mmHG Vent. Rate : 72 BPM Atrial Rate : * BPM P-R Int : * ms QRS Dur : 74 ms QT Int : 368 ms P-R-T Axes : * -10 -11 degrees QTcB Int : 402 ms Poor data quality, interpretation may be adversely affected Probable Sinus rhythm Inferior infarct , age undetermined Abnormal ECG When compared with ECG of 07-Apr-2023 10:41, Inferior infarct is now Present Confirmed by Oliverio Mccormick ([id number]) on 01/09/2025 5:38:32 AM Referred By: Confirmed By: Oliverio Mccormick
[2025-01-09] MEDS: ASPIRIN 81 MG CHEW PO SCH (08:47)
[2025-01-09] MEDS: ATORVASTATIN 10 MG TAB PO SCH (08:48)
[2025-01-09] MEDS: AMMONIUM LACTATE 12% LOTION 225 GM BTL EXT SCH (08:49)
[2025-01-09 10:03] LABS: Creatinine Clr Calc Pharmacy 114.8 ml/min
--- NOTE | 2025-01-09 10:03 | Hospitalist Progress Note ---
Date of Service January 09, 2025 Assessment & Plan (1) Cellulitis of right foot: (2) Maggot infestation: Plan Kylee Gee is a 74 yo male with PMH of diabetes, (off med), chronic foot wound, lymphadema, fungal infection of big toes. chronic back pain on gabapentin he's was seeing podiatry for fungal nail infection and has nail removed 1-2 weeks ago, however, on 01/08/2025, he's been having worsening right toes pain and erythema and came to [facility] for evaluation nursing noticed multiple maggot come out from his right foot. he's was started on IV zosyn and vancomycin. podiatry consulted in addition, he have chronic decubitus ulcer. podiatry and ID consulted 1. right foot cellulitis. ?? osteomyelitis 2. maggot infecton of right foot 3. lymphedema 4. diabetes (off med) 5. recurrent fall 6. sleep apnea on CPAP 7. hx of compression fracture of spine 8. recurrent fall 9. hx of erysipelas 10. hx of brain aneurysm s/p repair 1. right foot cellulitis zosyn and vancomycin podiatry notified, need wound care evaluation 2. maggot infection of right foot podiatry and ID eval wound care evaluation 3. lymphadema he is not on diuretics at home low dose lasix 4. hx of brain aneurysm repair in 2010 5. compression lumbar fracture hx of epidural abscess, discitis gabapentin 6. b/l hand pain, he's on celebrex 100mg BID 7. HTN, lisniorpil 5mg, and metoprolol tartrate 50mg BID 8. GERD, PPI 40mg 9. BPH, urinary incontinence finsasteride 5mg, flomax 0.4mg BID he's has monthly malhotra catheter change 10. sleep apnea on CPAP Admission and Anticipated Discharge Date Admission Date: January 08, 2025 Subjective his right foot is growing multiple maggot in the foot podiatry was consulted. appreciate their input, meanwhile, he's on zosyn and vancomycin his WBC is elevated at 14 ID consulted likely need wound care evaluation Physical Exam Physical Exam: VITALS: Reviewed. WEIGHT/BMI reviewed. GEN: Healthy appearing, well-developed, NAD. -Head: NC/AT; MSK: + for maggot in the right foot; erythema; CV: RRR, no m/r/g. LUNGS: CTAB, no w/r/c. ABD: Soft, NT/ND, NBS, no masses or organomegaly. + for skin graft scar of the abdomen MSK: No deformities, Normal gait. EXT: No clubbing, cyanosis, or edema. NEURO: AAO x3 Results & Data Results & Data Vital Signs (Past 12 Hours) Vital Signs Temp Pulse Pulse Resp BP Pulse Ox O2 Del Method 01/09/25 08:15 36.9 C 71 20 133/72 95 Room Air 01/09/25 08:01 58 L 01/09/25 03:52 36.6 C 56 L 18 126/74 92 Room Air 01/08/25 22:28 Room Air 01/08/25 22:28 36.7 C 63 18 146/84 H 95 Room Air Laboratory Results Laboratory Results - last 72 hr 01/08/25 01/08/25 15:58 19:25 WBC 14.01 H RBC 3.75 L Hgb 13.2 L Hct 39.2 L MCV 104.5 H MCH 35.2 H MCHC 33.7 RDW Std Deviation 61.6 H RDW Coeff of Mesfin 15.9 H Plt Count 408 H MPV 9.3 L Immature Gran % (Auto) 0.7 Neut % (Auto) 77.9 Lymph % (Auto) 11.8 [place] % (Auto) 6.3 Eos % (Auto) 2.5 Baso % (Auto) 0.8 Neut # (Auto) 10.91 H Lymph # (Auto) 1.66 [place] # (Auto) 0.88 H Eos # (Auto) 0.35 Baso # (Auto) 0.11 Immature Gran # (Auto) 0.10 Absolute Nucleated RBC 0.02 Nucleated RBC % (auto) 0.1 Sodium 134 L Potassium 3.8 Chloride 104 Carbon Dioxide 24 Anion Gap 6 BUN 23 Creatinine 0.83 Est Cr Clr Drug Dosing 101.5 eGFR 91.84 BUN/Creatinine Ratio 27.7 H Glucose 111 H Lactate 1.5 Calcium 9.0 Magnesium 1.6 L Total Bilirubin 0.3 Direct Bilirubin 0.1 AST 11 L ALT 10 Alkaline Phosphatase 86 Troponin I High Sens 5.9 Total Protein 6.8 Albumin 3.2 L Procalcitonin 14.20 H Urine Color Yellow Urine Appearance Clear Urine pH 5.5 Ur Specific Geraldine 1.036 H Urine Protein Trace H Urine Glucose (UA) Negative Urine Ketones Negative Urine Blood 2+ H Urine Nitrite Negative Urine Bilirubin Negative Urine Urobilinogen Negative Ur Leukocyte Esterase 1+ H Urine WBC (Auto) 11-20 H Urine RBC (Auto) >20 H U Hyaline Cast (Auto) 0-2 U Epithel Cells (Auto) 0-2 Urine Bacteria (Auto) None Seen Urine Yeast Present A Urine Comment Medications Administered Current Inpatient Medications Acetaminophen (Acetaminophen 500 Mg Tab) 1,000 mg PO TID [facility] Stop: 02/07/25 20:59 Last Admin: 01/09/25 08:54 Dose: 1,000 mg Aspirin (Aspirin 81 Mg Chew) 81 mg PO DAILY [facility] Stop: 02/08/25 08:59 Last Admin: 01/09/25 08:47 Dose: 81 mg Atorvastatin Calcium (Atorvastatin 10 Mg Tab) 10 mg PO DAILY [facility] Stop: 02/08/25 08:59 Last Admin: 01/09/25 08:48 Dose: 10 mg Finasteride (Finasteride 5 Mg Tab) 5 mg PO DAILY [facility] Stop: 02/07/25 19:50 Last Admin: 01/09/25 08:49 Dose: 5 mg Gabapentin (Gabapentin 300 Mg Cap) 300 mg PO TID [facility] Stop: 02/07/25 20:59 Last Admin: 01/09/25 08:49 Dose: 300 mg Hydralazine HCl (Hydralazine Hcl 20 Mg/Ml Vial) 10 mg IV Q8 PRN PRN Reason: sbp>185 or dbp>95 Stop: 02/07/25 18:09 Hydromorphone HCl (Hydromorphone Inj 0.5 Mg/0.5 Ml Syr) 0.5 mg IV Q4H PRN PRN Reason: Severe Pain (Scale 7, 8, 9,10) Stop: 01/23/25 00:59 Last Admin: 01/09/25 08:47 Dose: 0.5 mg Piperacillin Sod/Tazobactam Sod (Zosyn) 4.5 gm in 100 mls @ 25 mls/hr IV Q8H [facility]; Protocol Stop: 02/19/25 21:59 Last Admin: 01/09/25 05:36 Dose: 25 mls/hr Vancomycin HCl 1,250 mg/ (Sodium Chloride) 275 mls @ 200 mls/hr IV Q12H [facility] Stop: 02/20/25 02:59 Last Infusion: 01/09/25 03:49 Dose: Infused Ketorolac Tromethamine (Ketorolac Tromethamine 15 Mg/Ml Vial) 15 mg IV Q6H PRN PRN Reason: Moderate Pain (Scale 4, 5, 6) Stop: 01/14/25 00:09 Last Admin: 01/09/25 06:10 Dose: 15 mg Lactic Acid (Ammonium Lactate 12% Lotion 225 Gm Btl) 1 gm EXT DAILY [facility] Stop: 02/08/25 08:59 Last Admin: 01/09/25 08:49 Dose: 1 gm Lisinopril (Lisinopril 5 Mg Tab) 5 mg PO DAILY [facility] Stop: 02/07/25 20:29 Last Admin: 01/09/25 08:48 Dose: 5 mg Metoprolol Tartrate (Metoprolol Tartrate 50 Mg Tab) 50 mg PO BID [facility] Stop: 02/07/25 20:59 Last Admin: 01/09/25 08:48 Dose: 50 mg Miscellaneous Information (Vancomycin Consult Active) 1 each N/A UD PRN PRN Reason: Consult Stop: 02/07/25 16:49 Zinc Sulfate (Zinc Sulfate 220 Mg Capsule) 220 mg PO QAM [facility] Stop: 02/08/25 08:59 PG Care Time/CCT Total # of Minutes Spent Total Time Spent with Patient: Total time spent is greater than 50% in coordination of care (as documented) at patient's floor/unit and/or counseling patient: Coding Level of Care Code 94570 SUB INP/OBS CARE 2/35MIN Diagnoses Cellulitis of right foot L03.115 Maggot infestation B87.9 Time Spent (min) 35
[2025-01-09] MEDS: ZINC SULFATE 220 MG CAPSULE PO SCH (10:14)
--- NOTE | 2025-01-09 13:40 | Pharmacy Report ---
Pharmacy PK ABX Note - Date of Service January 09, 2025 - Assessment and Plan Assessment 74 year old M with PMH of diabetes, chronic foot wound, hallux fungal infection, and chronic decubitus ulcer ordered vancomycin + pip/tazo for R foot cellulitis with larval infestation, r/o osteomyelitis. Podiatry consulted. Blood and urine cultures pending. Plan Vancomycin * Loading dose: 2750 mg IV x 1 * Maintenance dose: 1250 mg IV every 12 hours * Regimen is predicted to achieve target AUC/BOAZ of 400-600 mg/L.hr * Vanc level ordered for: 01/10 Pharmacy will continue to follow and will adjust dose/frequency as necessary. Thank you. Pharmacy has transitioned to AUC monitoring for vancomycin. AUC/BOAZ is the preferred PK/PD target and is associated with decreased risk of nephrotoxicity compared to traditional trough targets.
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
[2025-01-09 18:20] LABS: A calco-baum cmplx NotReported Not Detected (NotDetected); Bact fragilis Not Reported Not Detected (NotDetected); Blood Culture Id Panel See PCR Comment (NotDetected); C auris Not Reported Not Detected (NotDetected); Calbicans Not Reported Not Detected (NotDetected); Candida glabrata Not Reported Not Detected (NotDetected); Candida krusei Not Reported Not Detected (NotDetected); Cneoformans/gatti Not Reported Not Detected (NotDetected); Cparapsilosis Not Reported Not Detected (NotDetected); Ctropicalis Not Reported Not Detected (NotDetected); E cloacae compx Not Reported Not Detected (NotDetected); Efaecalis Not Reported Not Detected (NotDetected); Efaecium Not Reported Not Detected (NotDetected); Enterobacterales Not Reported Not Detected (NotDetected); Escherichia coli Not Reported Not Detected (NotDetected); H influenzae Not Reported Not Detected (NotDetected); K aerogenes Not Reported Not Detected (NotDetected); Koxytoca Not Reported Not Detected (NotDetected); Kpneumoniae grp Not Reported Not Detected (NotDetected); Lmonocyt Not Reported Not Detected (NotDetected); N meningitidis Not Reported Not Detected (NotDetected); P aeruginosa Not Reported Not Detected (NotDetected); Proteus spp Not Reported Not Detected (NotDetected); Salmonella spp Not Reported Not Detected (NotDetected); Staph lugdunensis Not Reported Not Detected (NotDetected); Staph spp. Not Reported DETECTED (NotDetected); Staphaureus Not Reported Not Detected (NotDetected); Staphepi Not Reported DETECTED (NotDetected); Staphylococcus spp. DETECTED (NotDetected); Stenmaltophilia Not Reported Not Detected (NotDetected); Strep agal(GrpB) Not Reported Not Detected (NotDetected); Strep pneum Not Reported Not Detected (NotDetected); Strep pyog (GrpA) Not Reported Not Detected (NotDetected); Strep spp Not Reported Not Detected (NotDetected); mecAC Resistant Gene DETECTED (NotDetected)
[2025-01-09 18:40] LABS: Staphylococcus epidermidis DETECTED (NotDetected)
[2025-01-09] MEDS: NYSTATIN POWDER 15GM BTL EXT SCH (21:22)
[2025-01-10 06:01] LABS: Hematocrit (blood only) 41.0 % (42.0-52.0); Hemoglobin 13.8 g/dl (14.0-18.0); Mean Corpuscular Hemoglobin 34.9 pg (25.0-34.0); Mean Corpuscular Volume 103.8 fL (80.0-100.0); Platelet Count 411 K/uL (130-400); RDW Standard Deviation 61.3 fL (36.4-46.3); Red Blood Count 3.95 M/uL (4.70-6.10); White Blood Count 11.45 K/ul (4.8-10.8)
[2025-01-10 06:17] LABS: Anion Gap 8.0 (3-11); Blood Urea Nitrogen 16.0 mg/dl (6-23); Calcium 8.9 mg/dl (8.6-10.3); Carbon Dioxide 26.0 mmol/L (21-32); Chloride 102.0 mmol/L (98-107); Creatinine Clr Calc Pharmacy 116.4 ml/min; Glucose 127.0 mg/dl (70-99(Fasting)); Potassium 4.3 mmol/L (3.5-5.1); Sodium 136.0 mmol/L (136-145)
[2025-01-10] MEDS ORDERED: SILVER SULFADIAZINE 1% CR 400 GM JAR EXT SCH (08:00)
[2025-01-10] MEDS: ONDANSETRON INJ 2 MG/ML 2 ML VIAL IV PRN (09:01)
[2025-01-10] MEDS: KETOCONAZOLE 2% CR 15 GM TUBE EXT SCH (09:04)
--- NOTE | 2025-01-10 09:29 | Orthopedic Progress Note ---
Date of Service January 10, 2025 Assessment & Plan (1) Open wound of right foot: (2) Maggot infestation: (3) Cellulitis of right foot: (4) Pressure ulcer of right buttock, stage 3: (5) Fungal dermatitis: (6) Generalized weakness: (7) Diabetes mellitus type 2 in obese: (8) Hyperlipidemia: (9) Traumatic fracture of lumbar vertebra: Ajay Mccarty is a 74-year-old gentleman who is quite sickly. He presents to the hospital at the urge of his home health care nurse who noted a larval infestation between his hallux and second toe on the right foot. This was cleansed in the emergency department and the patient is currently on IV antimicrobial and topical antifungal therapy. I did discuss this patient's care with Ramon WilliamsonPApril. who has placed wound care orders. Recommend continuing those until Dr. Moncada is able to evaluate the patient in person tomorrow. Once again, no acute plans for orthopedic intervention at this time Admission and Anticipated Discharge Date Admission Date: January 08, 2025 Subjective No acute events overnight. Unchanged from prior. Patient notes he feels well. Review of Systems Review of Systems: All systems reviewed & are unremarkable except as noted in HPI & below Physical Exam Physical Exam: On evaluation of the patient's bilateral lower extremities he has significant dry skin with scaling noted of his bilateral lower extremities. There is no significant erythema in either leg. On evaluation of the patient's right foot, he has erythema about his forefoot primarily involving the toes on the right side. There is some early necrotic tissue about his hallux and second digit. There are no interdigital Larvae noted today. I am unable to palpate any pedal pulses, but the foot does appear perfused. Results & Data Vital Signs (Past 12 Hours) Vital Signs Temp Pulse Pulse Resp BP Pulse Ox O2 Del Method 01/10/25 08:15 37.0 C 82 20 173/97 H 92 Room Air 01/10/25 03:48 36.6 C 63 18 158/74 H 95 Room Air 01/09/25 23:51 36.7 C 77 20 182/87 H 96 Room Air 01/09/25 23:20 Room Air 01/09/25 21:49 74 (8) Hyperlipidemia Hyperlipidemia type: unspecified Qualified Code(s): E78.5 - Hyperlipidemia, unspecified
[2025-01-10] MEDS: OPTIRAY 320 125ml IV ONE (11:34)
--- NOTE | 2025-01-10 12:55 | Hospitalist Progress Note ---
Date of Service January 10, 2025 Assessment & Plan (1) Cellulitis of right foot: (2) Maggot infestation: Plan Kylee Gee is a 74 yo male with PMH of diabetes (not on med), decubitus ulcer, chronic foot wound,lymphadema, fungal infection of big toes. chronic back pain on gabapentin hx of stroke, brain aneursym s/p repair 2010, hypertension. he's been having right outer leg swelling erythema. was having [facility] visiting his house for leg wrap on Saturday/Saturday. he's was seeing podiatry for fungal nail infection and has nail removed 1-2 weeks ago, on 01/08/2025, developed worsening right toes pain and erythema and came to [facility] for evaluation nursing noticed multiple maggots come out from his right foot. he's was started on IV zosyn and vancomycin. podiatry consulted in addition, he have chronic decubitus ulcer. podiatry and ID consulted 1. right foot cellulitis. ?? osteomyelitis 2. maggot infecton of right foot 3. lymphedema 4. diabetes (off med) 5. recurrent fall 6. sleep apnea on CPAP 7. hx of compression fracture of spine 8. recurrent fall 9. hx of erysipelas 10. hx of brain aneurysm s/p repair 1. right foot cellulitis f/u on CTA to r/o PVD. zosyn and vancomycin podiatry notified, need wound care evaluation Dr. Madrid recommended Silvadine cream to the toes with single gauze between. anti fungal barrier cream to the legs wrap with kerlex and michele from the base of the toes to the proximal calf. 2. maggot infection of right foot podiatry and ID eval wound care evaluation 3. lymphadema he is not on diuretics at home low dose lasix 4. diabetes off med most recent a1c is 6.7 (september 2024) discussed at length about restarting metformin discussed that hyperglycemia can predipose him to infection 4. hx of brain aneurysm repair in 2010 5. compression lumbar fracture hx of epidural abscess, discitis gabapentin 6. b/l hand pain, he's on celebrex 100mg BID 7. HTN, lisniorpil 5mg, and metoprolol tartrate 50mg BID BP elevated at 173, increased lisinopril from 5mg to 10mg 8. GERD, PPI 40mg 9. BPH, urinary incontinence finsasteride 5mg, flomax 0.4mg BID he's has monthly malhotra catheter change 10. sleep apnea on CPAP Admission and Anticipated Discharge Date Admission Date: January 08, 2025 Subjective for his maggot right foot infection, podiatry and orthopedic following Dr. Heck recommended Silvadine cream to the toes with single gauze between. anti fungal barrier cream to the legs wrap with kerlex and michele from the base of the toes to the proximal calf. his right foot cellulitis, continue zosyn and van ID consulted. spoke with [facility] ID team + for stapyloccous, staph epidermis and he's getting CTA to r/o underlying PVD BP elevated, lisinopril dose increased from 5mg to 10mg Review of Systems Review of Systems: Constitutional: No Weight Change, No Fever, No Chills, No Night Sweats, No Fatigue, No Malaise Cardiovascular: No Chest Pain, No SOB, No PND, No Dyspnea on Exertion, No Orthopnea, No Claudication, No Edema, No Palpitations Respiratory: No Cough, No Sputum, No Wheezing, No Smoke Exposure, No Dyspnea Gastrointestinal: No Nausea, No Vomiting, No Diarrhea, No Constipation, No Pain, No Heartburn, No Anorexia, No Dysphagia, No Hematochezia, No Melena, No Flatulence, No Jaundice Skin: No Skin Lesions, No Pruritis, No Hair Changes, No Breast/Skin Changes, No Nipple Discharge Neuro: No Weakness, No Numbness, No Paresthesias, No Loss of Consciousness, No Syncope, Psych: No Anxiety/Panic, No Depression, No Insomnia, No Personality Changes, No Delusions, No Rumination, No SI/HI/AH/VH, No Social Issues, No Memory Changes, No Violence/Abuse Hx., No Eating Concerns Physical Exam Physical Exam: VITALS: Reviewed. WEIGHT/BMI reviewed. GEN: Healthy appearing, well-developed, NAD. Neuro: AAox3; -Head: NC/AT; CV: RRR, no m/r/g. LUNGS: CTAB, no w/r/c. ABD: Soft, NT/ND, NBS, + for abdominal skin graft; non-tender t o palpatio n : N/A SKIN: Warm, well perfused. No skin rashes or abnormal lesions. MSK: + for erythema on the right toes; + for multiple larve growing Results & Data Results & Data Vital Signs (Past 12 Hours) Vital Signs Temp Pulse Resp BP Pulse Ox O2 Del Method 01/10/25 08:15 37.0 C 82 20 173/97 H 92 Room Air 01/10/25 03:48 36.6 C 63 18 158/74 H 95 Room Air Laboratory Results Laboratory Results - last 72 hr 01/08/25 01/08/25 01/09/25 15:58 19:25 09:26 WBC 14.01 H RBC 3.75 L Hgb 13.2 L Hct 39.2 L MCV 104.5 H MCH 35.2 H MCHC 33.7 RDW Std Deviation 61.6 H RDW Coeff of Mesfin 15.9 H Plt Count 408 H MPV 9.3 L Immature Gran % (Auto) 0.7 Neut % (Auto) 77.9 Lymph % (Auto) 11.8 Dewitt % (Auto) 6.3 Eos % (Auto) 2.5 Baso % (Auto) 0.8 Neut # (Auto) 10.91 H Lymph # (Auto) 1.66 Dewitt # (Auto) 0.88 H Eos # (Auto) 0.35 Baso # (Auto) 0.11 Immature Gran # (Auto) 0.10 Absolute Nucleated RBC 0.02 Nucleated RBC % (auto) 0.1 Sodium 134 L Potassium 3.8 Chloride 104 Carbon Dioxide 24 Anion Gap 6 BUN 23 Creatinine 0.83 0.73 Est Cr Clr Drug Dosing 101.5 114.8 eGFR 91.84 95.47 BUN/Creatinine Ratio 27.7 H Glucose 111 H POC Glucose Lactate 1.5 Calcium 9.0 Magnesium 1.6 L Total Bilirubin 0.3 Direct Bilirubin 0.1 AST 11 L ALT 10 Alkaline Phosphatase 86 Troponin I High Sens 5.9 Total Protein 6.8 Albumin 3.2 L Procalcitonin 14.20 H Urine Color Yellow Urine Appearance Clear Urine pH 5.5 Ur Specific [place] 1.036 H Urine Protein Trace H Urine Glucose (UA) Negative Urine Ketones Negative Urine Blood 2+ H Urine Nitrite Negative Urine Bilirubin Negative Urine Urobilinogen Negative Ur Leukocyte Esterase 1+ H Urine WBC (Auto) 11-20 H Urine RBC (Auto) >20 H U Hyaline Cast (Auto) 0-2 U Epithel Cells (Auto) 0-2 Urine Bacteria (Auto) None Seen Urine Yeast Present A Urine Comment Random Vancomycin Staphylococcus sp PCR mecA/C-Methicil Resis Gene Staph epidermidis (PCR) Bld Cult ID Panel PCR 01/09/25 01/09/25 01/10/25 14:59 17:03 05:32 WBC 11.45 H RBC 3.95 L Hgb 13.8 L Hct 41.0 L MCV 103.8 H MCH 34.9 H MCHC 33.7 RDW Std Deviation 61.3 H RDW Coeff of Mesfin 15.8 H Plt Count 411 H MPV 9.5 Immature Gran % (Auto) Neut % (Auto) Lymph % (Auto) Dewitt % (Auto) Eos % (Auto) Baso % (Auto) Neut # (Auto) Lymph # (Auto) Dewitt # (Auto) Eos # (Auto) Baso # (Auto) Immature Gran # (Auto) Absolute Nucleated RBC 0.02 Nucleated RBC % (auto) 0.2 Sodium 136 Potassium 4.3 Chloride 102 Carbon Dioxide 26 Anion Gap 8 BUN 16 Creatinine 0.72 Est Cr Clr Drug Dosing 116.4 eGFR 95.87 BUN/Creatinine Ratio 22.2 H Glucose 127 H POC Glucose 128 H Lactate Calcium 8.9 Magnesium Total Bilirubin Direct Bilirubin AST ALT Alkaline Phosphatase Troponin I High Sens Total Protein Albumin Procalcitonin Urine Color Urine Appearance Urine pH Ur Specific [place] Urine Protein Urine Glucose (UA) Urine Ketones Urine Blood Urine Nitrite Urine Bilirubin Urine Urobilinogen Ur Leukocyte Esterase Urine WBC (Auto) Urine RBC (Auto) U Hyaline Cast (Auto) U Epithel Cells (Auto) Urine Bacteria (Auto) Urine Yeast Urine Comment Random Vancomycin Staphylococcus sp PCR DETECTED A mecA/C-Methicil Resis Gene DETECTED A Staph epidermidis (PCR) DETECTED A Bld Cult ID Panel PCR See PCR Comment 01/10/25 01/10/25 01/10/25 08:06 11:38 12:03 WBC RBC Hgb Hct MCV MCH MCHC RDW Std Deviation RDW Coeff of Mesfin Plt Count MPV Immature Gran % (Auto) Neut % (Auto) Lymph % (Auto) Dewitt % (Auto) Eos % (Auto) Baso % (Auto) Neut # (Auto) Lymph # (Auto) Dewitt # (Auto) Eos # (Auto) Baso # (Auto) Immature Gran # (Auto) Absolute Nucleated RBC Nucleated RBC % (auto) Sodium Potassium Chloride Carbon Dioxide Anion Gap BUN Creatinine Est Cr Clr Drug Dosing eGFR BUN/Creatinine Ratio Glucose POC Glucose 104 H 111 H Lactate Calcium Magnesium Total Bilirubin Direct Bilirubin AST ALT Alkaline Phosphatase Troponin I High Sens Total Protein Albumin Procalcitonin Urine Color Urine Appearance Urine pH Ur Specific [place] Urine Protein Urine Glucose (UA) Urine Ketones Urine Blood Urine Nitrite Urine Bilirubin Urine Urobilinogen Ur Leukocyte Esterase Urine WBC (Auto) Urine RBC (Auto) U Hyaline Cast (Auto) U Epithel Cells (Auto) Urine Bacteria (Auto) Urine Yeast Urine Comment Random Vancomycin 17.9 Staphylococcus sp PCR mecA/C-Methicil Resis Gene Staph epidermidis (PCR) Bld Cult ID Panel PCR Diagnostic Findings Chest X-Ray 01/08/25 15:54 EXAM: XR chest 1V portable CLINICAL HISTORY: Sepsis TECHNIQUE: An X-ray image of the chest is obtained in AP projection. COMPARISON: No prior studies are available for comparison. FINDINGS: Pulmonary Parenchyma: No evidence of consolidation, collapse, or focal opacities. No pulmonary nodules are identified. Veiled blunted left pleural recess, may denote minimal pleural effusion/thickening. No evidence of right pleural effusion or pleural thickening. Heart and Mediastinum: Heart size and shape are normal. No mediastinal widening or masses. No hilar or mediastinal lymphadenopathy. Bony Thorax: Bony thorax appears intact without fractures or deformities. Soft Tissues: Soft tissues overlying the chest wall are unremarkable. IMPRESSION: 1. Veiled blunted left pleural recess, may denote minimal pleural effusion/thickening. 2. Unremarkable rest of the study. Electronically signed by Suraj Au 01-08-2025 6:10 PM Foot X-Ray 01/08/25 16:24 EXAM: XR foot RT 2V CLINICAL HISTORY: Osteomyelitis TECHNIQUE: X-ray images of the right foot were obtained in anteroposterior (AP) and lateral projections. COMPARISON: No prior studies available for comparison. FINDINGS: Bone Structure: Forefoot soft tissue swelling/edema. No underlying bony destruction or periosteal reaction No evidence of fracture or dislocation. Joint Spaces: Joint spaces are normal. No evidence of joint effusion or subluxation. Soft Tissues: No soft tissue calcifications, or foreign bodies noted. Additional Findings: Mild 1st MTP joint osteoarthritis. Large blunt calcaneal bone spur. IMPRESSION: 1. Mild forefoot soft tissue swelling/edema. No underlying bony destruction or periosteal reaction. 2. No evidence of fracture or dislocation. No obvious radiographic evidence of osteomyelitis. Disclaimer: A subtle bone abnormality or fracture may not be readily apparent on X-rays, thus clinical correlation and further imaging including follow-up CT, MRI, or follow-up X-rays are advised as needed. Electronically signed by Suraj Au 01-08-2025 6:23 PM PG Care Time/CCT Total # of Minutes Spent Total Time Spent with Patient: Total time spent is greater than 50% in coordination of care (as documented) at patient's floor/unit and/or counseling patient: Coding Level of Care Code 78699 SUB INP/OBS CARE 2/35MIN Diagnoses Cellulitis of right foot L03.115 Maggot infestation B87.9 Time Spent (min) 35
--- NOTE | 2025-01-10 13:39 | CT Scan Report ---
CT ANGIOGRAM OF THE ABDOMEN AND PELVIS WITH BILATERAL LOWER EXTREMITY RUNOFF CLINICAL HISTORY: Right foot ulcer. Peripheral arterial disease. COMPARISON STUDY: CT scan of the abdomen and pelvis dated 04/09/2019. TECHNIQUE: Following the IV administration of 120 cc of Optiray 320, CT angiogram of the abdomen and pelvis with bilateral lower externally runoff was performed from the diaphragm to the feet. Images ar e reviewed in the axial, sagittal, and coronal planes. 3-D MIPS images are created and assessed. IV c ontrast was administered without complication. A dose lowering technique was utilized adhering to th e principles of ALARA. There is streak artifact from the arms which could not be elevated above the a bdomen. CT DOSE: 2215.16 mGy.cm FINDINGS: Liver: Imaged portions of the contrast-enhanced liver is showing diminished attenuation indicating he patic steatosis. The hepatic dome was not visualized. There is no intrahepatic biliary ductal dilatat ion. The hepatic veins and portal veins are patent. Gallbladder: There are calcified gallstones with no CT evidence of acute cholecystitis. Spleen: Not identified and presumed surgically absent. Small splenules are seen in the left upper micho[place] drant. Pancreas: Unremarkable. Adrenal glands: Unremarkable. Kidneys: The contrast since kidneys are normal in size and without hydronephrosis. The kidneys enhanc e symmetrically. Foci of cortical scarring are seen in both kidneys. There is a 16 mm nonobstructing calculus in the lower pole of left kidney. There are at least 2 nonobstructing right renal calculi wh ich measure up to 5 mm. No ureteral stone is seen. A 16 mm exophytic cyst arises from the right lower pole. Abdominal aorta and iliac arteries: The abdominal aorta is normal in course and caliber noting modera te atherosclerotic calcification. The abdominal aorta is widely patent. No dissection is seen. The il iac arteries are widely patent bilaterally noting atherosclerotic plaque and irregularity. Major branches of the abdominal aorta: The celiac trunk, superior mesenteric, and inferior mesenteric arteries are widely patent. Hepatic arterial anatomy is conventional. The splenic artery is patent. Single bilateral renal arteries are widely patent. Right lower extremity runoff: The right common femoral artery is widely patent, as is the right profu nda femoris artery. The right superficial femoral and popliteal arteries are patent noting atheroscle rotic plaque and irregularity. The tibioperoneal trunk is patent. There is two-vessel runoff to the f oot. The anterior tibial artery and the peroneal artery are patent to the foot. The posterior tibial artery is diminutive, and the mid to distal portions are occluded. The dorsalis pedis artery is paten t. Left lower extremity runoff: The left common femoral artery is widely patent, as is the profunda femo ris artery. The left superficial femoral artery and popliteal artery are patent noting atheroscleroti c plaque and irregularity. The tibioperoneal trunk is patent. There is three-vessel runoff to the cecilio t. The anterior tibial artery, the posterior tibial artery, and the peroneal artery are patent. The p osterior tibial artery is diminutive and terminates above the calf. Flow shown the dorsalis pedis art lew. Bowel: There are scattered clonic diverticula without CT evidence of acute diverticulitis. No bowel o bstruction is seen. There is mild nonspecific inflammation around the duodenum. The appendix is well -visualized and normal. Peritoneum: There is no intraperitoneal free air or abdominal ascites. There is laxity of the ventral abdominal wall with diastases of the rectus musculature. Lymphadenopathy: Mildly enlarged retroperitoneal, iliac chain, and groin nodes epiglottis increased i n size from the 2019 examination. Bilateral external iliac chain nodes seen on image #230 measure up to 14 mm in short axis. Pelvic viscera: The prostate gland is diminutive and heterogeneous. The bladder is distended, end the wall appears thickened/trabeculated indicating chronic outlet obstruction. A Vargas catheter balloon is inflated within the prostate gland. The seminal vesicles are normal as imaged. There is a fat cont aining right groin hernia. Skeletal structures: The skeletal structures are osteopenic. There is moderate to advanced and the sa cral spondylosis. There is a chronic compression deformity of L2. No lytic or blastic bony lesions ar e seen. There are chronic/healed left-sided rib fractures. There is chronic deformity of the right pu bic ring. Lower extremity soft tissues: Soft tissue edema is present in both feet, right side greater than left . Question a small ulceration overlying the first metatarsophalangeal joint. No soft tissue gas is se en in the feet. There is generalized atrophy of the lower extremity musculature. Arthritic change is noted in the feet. IMPRESSION: 1. A Vargas catheter balloon is inflated within the prostate gland. Repositioning is indicated. 2. Unremarkable CT angiogram of the abdominal aorta and its major branches noting atherosclerotic babita que and irregularity. 3. There is mild nonspecific inflammation around the duodenum. Clinical correlation will be required. If warranted this can be further assessed with endoscopy. 4. There is 2-vessel runoff to the right foot. The right posterior tibial artery is diminutive and th e mid to distal portions appear occluded. 5. There is 3-vessel runoff to the left foot, again noting a diminutive posterior tibial artery. 6. Bilateral nephrolithiasis. 7. Cholelithiasis. 8. Hepatic steatosis. 9. Prominent lymph nodes in the retroperitoneum common iliac chain, and groin have modestly increased in size from 2019 and may be reactive. 10. There is asymmetric soft tissue edema in the right foot as compared to the left with a possible u lceration overlying the first metatarsophalangeal joint. Correlate clinically. 11. Additional findings as above. ACT 112: Negative or not required by law. Electronically signed by: Scout Hutchison M.D. 01/10/2025 1:37 PM
--- NOTE | 2025-01-10 13:44 | Pharmacy Report ---
Pharmacy PK ABX Note - Date of Service January 10, 2025 - Assessment and Plan Assessment 01/10: Day #3 vancomycin (+ zosyn) for cellulitis. Blood cultures (+) Staph pettenkoferi, GPC clusters. Blood biofire (+) MRSE. Renal function stable. 01/09: 74 year old M with PMH of diabetes, chronic foot wound, hallux fungal infection, and chronic decubitus ulcer ordered vancomycin + pip/tazo for R foot cellulitis with larval infestation, r/o osteomyelitis. Podiatry consulted. Blood and urine cultures pending. Plan Vancomycin * Current regimen: vancomycin 1250mg IV q12h * Random vancomycin level (~8h level), 17.9mcg/mL- predicted to achieve ssAUC 518mg/L.hr - therapeutic. * Continue vancomycin 1250mg IV q12h * Repeat level in ~48h or sooner if clinically indicated Pharmacy will continue to follow and will adjust dose/frequency as necessary. Hemanth moses. Pharmacy has transitioned to AUC monitoring for vancomycin. AUC/BOAZ is the preferred PK/PD target and is associated with decreased risk of nephrotoxicity compared to traditional trough targets.
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
[2025-01-11 07:10] LABS: Hematocrit (blood only) 35.8 % (42.0-52.0); Hemoglobin 12.2 g/dl (14.0-18.0); Mean Corpuscular Hemoglobin 35.5 pg (25.0-34.0); Mean Corpuscular Volume 104.1 fL (80.0-100.0); Platelet Count 379 K/uL (130-400); RDW Standard Deviation 61.1 fL (36.4-46.3); Red Blood Count 3.44 M/uL (4.70-6.10); White Blood Count 12.46 K/ul (4.8-10.8)
[2025-01-11 07:40] LABS: Anion Gap 4.0 (3-11); Blood Urea Nitrogen 17.0 mg/dl (6-23); Calcium 8.4 mg/dl (8.6-10.3); Carbon Dioxide 28.0 mmol/L (21-32); Chloride 103.0 mmol/L (98-107); Creatinine Clr Calc Pharmacy 109.8 ml/min; Glucose 120.0 mg/dl (70-99(Fasting)); Potassium 4.1 mmol/L (3.5-5.1); Sodium 135.0 mmol/L (136-145)
--- NOTE | 2025-01-11 09:54 | Hospitalist Progress Note ---
Date of Service January 11, 2025 Assessment & Plan (1) Cellulitis of right foot: Plan: f/u on CTA to r/o PVD. zosyn and vancomycin podiatry consult appreciated Vascular consult appreciated Dr. Madrid recommended Silvadine cream to the toes with single gauze between. anti fungal barrier cream to the legs wrap with kerlex and michele from the base of the toes to the proximal calf. ID consulted for oral abx recommendations PT/OT Case management to follow up on home health needs (2) Maggot infestation: Plan: -resolved, wound clean and healing well as per podiatry (3) Hypertension: Plan: -lisinopril, metoprolol Plan Kylee Gee is a 74 yo male with PMH of diabetes (not on med), decubitus ulcer, chronic foot wound,lymphadema, fungal infection of big toes. chronic back pain on gabapentin hx of stroke, brain aneursym s/p repair 2010, hypertension. he's been having right outer leg swelling erythema. was having [facility] visiting his house for leg wrap on Saturday/Saturday. he's was seeing podiatry for fungal nail infection and has nail removed 1-2 weeks ago, on 01/08/2025, developed worsening right toes pain and erythema and came to [facility] for evaluation nursing noticed multiple maggots come out from his right foot. he's was started on IV zosyn and vancomycin. podiatry consulted in addition, he have chronic decubitus ulcer. podiatry and ID consulted Admission and Anticipated Discharge Date Admission Date: January 08, 2025 Subjective No events overnight. Pt resting in bed. Review of Systems Review of Systems: CONST: Negative for fever, body aches and chills. HENT: Negative for neck pain/stiffness, headache, congestion, sore throat, swelling. EYES: Negative for discharge/pain or vision changes. RESP: Negative for cough/hemoptysis and shortness of breath. CV: Negative chest pain, difficulty breathing, palpitations. ABD: Negative pain, nausea, vomiting. : Negative increase frequency, dysuria, blood in urine or stool. MUSC: Negative for muscle aches, edema. SKIN: Negative rash, lesions/sores. NEURO: Negative headache, dizziness, weakness. Physical Exam Physical Exam: GENERAL APPEARANCE NAD, activity normal for age, well developed/ well nourished, no cyanosis, pallor, or diaphoresis. EYES lids/conjunctiva normal. EARS/NOSE/THROAT Mucous membranes moist, nares normal, lips/teeth normal uvula midline without oral pharyngeal erythema, exudate or swelling TMs normal bilaterally. No lymphangitis/lymphedema. HEAD/NECK normocephalic atraumatic, no facial trauma, neck is supple. RESPIRATORY respiratory effort normal, speaks in full sentences, no tripod position, no accessory muscle use. Lungs clear to auscultation without rhonchi, wheezes, rales CARDIAC Regular rate and rhythm, no edema. ABDOMINAL Soft, ND/NT. No evidence of fluid wave. No pulsatile masses on exam, rebound tenderness, Garibay sign or pain over Mcburney's point. MUSCLES/EXTREMITIES No abnormal range of motion, no swelling. SKIN Warm, pink and dry. No rashes, dermatoses, petechiae or lesions. NEUROLOGICAL Speech is clear and appropriate. Normal level of consciousness. Gait and coordination are normal. 5/5 strength in all extremities. PSYCH Normal mood and affect. Judgement/competence is appropriate Results & Data Results & Data Vital Signs (Past 12 Hours) Vital Signs Temp Pulse Pulse Resp BP Pulse Ox O2 Del Method 01/11/25 07:48 64 01/11/25 00:30 36.6 C 66 18 163/89 H 96 Room Air 01/11/25 00:07 Room Air PG Care Time/CCT Total # of Minutes Spent Total Time Spent with Patient: Total time spent is greater than 50% in coordination of care (as documented) at patient's floor/unit and/or counseling patient: Coding Level of Care Code 51260 SUB INP/OBS CARE 2/35MIN Diagnoses Cellulitis of right foot L03.115 Maggot infestation B87.9 Hypertension I10
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
[2025-01-11] MEDS ORDERED: PANTOPRAZOLE BOLUS/DRIP IV STA (11:01)
[2025-01-11] MEDS: SODIUM CHLORIDE 0.9% 1,000 ML IV ONE (11:03)
[2025-01-11] MEDS: PANTOprazole 40 MG in DEXTROSE 5% MINI-B 100 ML IV SCH (11:30)
[2025-01-11 11:34] LABS: Hematocrit (blood only) 28.6 % (42.0-52.0); Hemoglobin 9.7 g/dl (14.0-18.0); Mean Corpuscular Hemoglobin 35.7 pg (25.0-34.0); Mean Corpuscular Volume 105.1 fL (80.0-100.0); Platelet Count 300 K/uL (130-400); RDW Standard Deviation 61.1 fL (36.4-46.3); Red Blood Count 2.72 M/uL (4.70-6.10); White Blood Count 12.24 K/ul (4.8-10.8)
[2025-01-11 11:38] LABS: Cdiff Toxin B Gene (2yr or >) Negative Cdiff Gene (Neg)
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
[2025-01-11] MEDS: OPTIRAY 320 125ml IV ONE (13:05)
--- NOTE | 2025-01-11 14:57 | CT Scan Report ---
CT angio abd pelvis wo/w con HISTORY: 74 years-old Male gi bleeding acute GI bleed COMPARISON: CTA 01/10/2025, CT abdomen and pelvis 04/09/2019 TECHNIQUE: CTA abdomen and pelvis was obtained with and without IV contrast. 3-D coronal and sagittal MIPS were obtained and submitted for review. All measurements were obtained according to [place]. A dose lowering technique was used consistent with the principals of [facility]. FINDINGS: Trace pleural effusions. Mild dependent bibasilar atelectasis. Absent spleen. Unremarkable pancreas a nd adrenal glands with contracted gallbladder. Cholelithiasis Liver is within normal limits. Cortical scarring of the kidneys. 1.6 cm nonobstructing calculus of the inferior pole left kidney. Nonobstruc ting right-sided renal calculi measure up to 5 mm. 1.6 cm exophytic cyst of the inferior pole right k idney. No hydronephrosis. Decompressed urinary bladder. Vargas catheter balloon is inflated within the prostatic urethra. Prominent retroperitoneal, iliac and inguinal lymph nodes are unchanged from yest erday's study measuring up to 1.6 cm within the inguinal chains. Mild wall thickening of the duodenum with adjacent inflammatory stranding. No bowel obstruction. [place] clemente diverticulosis. Fat filled right lateral abdominal wall hernia on image 236, vomiting of 3.4 cm. Thinning of the anterior abdominal wall. Degenerative changes of the spine, pelvis and hips. 1.8 cm l ucent lesion left iliac bone is unchanged from 2019 and likely benign. No chronic pelvic ring fractur es. Heart is upper limits of normal in size. Moderate atherosclerosis of the abdominal aorta. Patency of the celiac trunk, renal, superior and inferior mesenteric arteries. The common and external iliac and imaged femoral arteries are patent. IMPRESSION: 1. Unchanged exam compared to yesterday's CTA study. There is again atherosclerosis without aneurysm, dissection, high-grade stenosis or arterial occlusion. 2. Nonobstructing bilateral nephrolithiasis. 3. Wall thickening of the duodenum with trace adjacent inflammation is again noted which may represen t a duodenitis. 4. Nonspecific retroperitoneal and inguinal lymphadenopathy. 5. Malpositioned Vargas balloon catheter inflated within the prostatic urethra. Repositioning recommen ded. 6. Incidental findings as above. ACT 112: Negative or not required by law. The above report was generated using voice recognition software. It may contain grammatical, syntax o r spelling errors. Electronically signed by: Mike Su M.D. 01/11/2025 2:54 PM
[2025-01-11] MEDS: LAVAGE SOLUTION 4000ML PO SCH (16:00)
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
--- NOTE | 2025-01-11 21:54 | Podiatry Progress Note ---
Date of Service January 11, 2025 Assessment & Plan (1) Open wound of right foot: (2) Venous stasis dermatitis of both lower extremities: (3) Maggot infestation: (4) Cellulitis of right foot: Plan Patient seen today with Dr. Kamaljit Cabral of orthopedics. Bilateral lower extremity dressings removed in total. Feet and legs are evaluated, cleansed and redressed.Patient continues to show relatively rapid improvement in overall clinical appearance to the bilateral foot. - CTA abdomen and pelvis results reviewed showing no aneurysm, dissection, high- grade stenosis or arterial occlusion - Continued once daily cleansing of the bilateral foot and leg with normal sterile saline and gauze followed by application of ketoconazole to the interdigital spaces with Aquacel Ag placed interdigitally to help absorb exudate. Will continue to apply antifungal barrier cream to the foot and leg followed by Michelle and Mateo bandage from the base of the toes to the proximal calf. Patient has adequate arterial perfusion to the bilateral lower extremity and would be appropriate candidate for bilateral lower extremity multi layer compression dressings following evaluation from wound care. - Wound care consult placed for multilayer compression dressings bilateral to be used and lieu of Mateo bandages for more consistent compression. -Patient okay to weight-bear as tolerated bilateral foot. - Continue to elevate legs x 2 pillows while at rest. Admission and Anticipated Discharge Date Admission Date: January 08, 2025 Subjective Patient evaluated resting comfortably in hospital bed. Reports persistent pain with dressing changes to right foot. Denies pain at baseline bilateral foot. Denies nausea vomiting fever chills.Dressings remain in place of bilateral lower extremity. No maggots observed on today's evaluation. Review of Systems Review of Systems: All systems reviewed & are unremarkable except as noted in HPI & below Denies nausea, vomiting, fever, chills, shortness of breath, chest pain. Reports pain to the right foot with palpation and dressing changes. Physical Exam Physical Exam: Const: Appears well developed and well nourished. No signs of acute distress present. CV: Extremities: No cyanosis. +2 pitting edema bilateral lower extremity. Capillary refill time is less than 2 seconds all digits of the bilateral foot. Posterior tibial and dorsalis pedis pulses are palpable bilateral. Skin: Bilateral lower extremity pitting edema with dry flaking skin to the bilateral leg below the knee. Erythema at the right anterior to anterior lateral ankle with dry cracking fissured skin noted. See lower extremity exam for further details regarding the right foot. Neuro: Sensation intact to light touch in all areas of the foot and ankle. Psych: Mood/Affect: Mood is normal. Affect is normal. Cognition: Orientation is intact to person, place and time. Focused lower extremity musculoskeletal exam: Leg: No pain with compression of the calf muscle. Right lower extremity: Chronic venous stasis changes with venous stasis dermatitis to the bilateral lower extremity below the knee. Dry flaking skin to the right lower extremity distal one third of the leg with increased keratotic tissue surrounding the ankle fissuring and maceration of hyperkeratotic tissue at the lateral right ankle. Minimal serous drainage. Right foot: Erythema to the digits of the right foot has significantly reduced since time of admission. No maggots identified to the interdigital spaces on evaluation. Patient does have superficial breakdown in soft tissue to the interspaces with fibrotic tissue formation in the first interspace. Wounds do not probe or track in any direction and at this time remained relatively superficial. Patient has subtotal loss of the 1st and 3rd toenails with maceration to the nailbed and mycotic nail proximally within the nail fold. There does not seem to be any significant breakdown of the nailbed or exposed bone at this time. Significant reduction in erythema to the toes and forefoot compared to images obtained on admission. Left lower extremity: Chronic venous stasis changes to the lower extremity below the knee extending to the ankle with friable epithelium and thick hyperkeratotic plaques primarily medially along the leg and ankle. Several small areas of superficial weeping without any signs of local soft tissue infection. Similar signs of chronic probable poor hygiene with maceration and fungal changes to the digits of the left foot without breakdown in skin or active drainage. Results & Data Results & Data Vital Signs (Past 12 Hours) Vital Signs Temp Pulse Resp BP Pulse Ox O2 Del Method 01/11/25 20:26 37.3 C 118 H 18 111/77 98 Room Air 01/11/25 15:25 36.6 C 109 H 21 101/66 98 Room Air 01/11/25 15:10 Room Air 01/11/25 11:28 36.7 C 91/59 L 94 Room Air Diagnostic Findings CTA abdomen/pelvis 01/11/2025: IMPRESSION: 1. Unchanged exam compared to yesterday's CTA study. There is again atherosclerosis without aneurysm, dissection, high-grade stenosis or arterial occlusion. 2. Nonobstructing bilateral nephrolithiasis. 3. Wall thickening of the duodenum with trace adjacent inflammation is again noted which may represent a duodenitis. 4. Nonspecific retroperitoneal and inguinal lymphadenopathy. 5. Malpositioned Vargas balloon catheter inflated within the prostatic urethra. Repositioning recommended. 6. Incidental findings as above. ACT 112: Negative or not required by law. The above report was generated using voice recognition software. It may contain grammatical, syntax or spelling errors. Coding Level of Care Code 51062 SUB INP/OBS CARE 235MIN Diagnoses Open wound of right foot S91.301A Venous stasis dermatitis of both lower extremities I87.2 Maggot infestation B87.9 Cellulitis of right foot L03.115
[2025-01-11 22:00] LABS: Hematocrit (blood only) 24.0 % (42.0-52.0); Hemoglobin 8.2 g/dl (14.0-18.0)
[2025-01-11] MEDS ORDERED: Nursing to Pharmacy Communication SCH (23:15)
[2025-01-12] MEDS ORDERED: SODIUM CHLORIDE 0.9% 100 ML IV PRN ×2 (00:24→02:11)
[2025-01-12] MEDS: SODIUM CHLORIDE 0.9% 500 ML IV ONE (00:43)
[2025-01-12] MEDS ORDERED: ALBUMIN 25% 12.5 GM/50 ML VIAL IV SCH (01:30)
[2025-01-12 04:18] VITALS: TEMP 99.3
[2025-01-12 04:27] VITALS: BP 105/64
--- NOTE | 2025-01-12 06:07 | Communication Note ---
Date of Service: January 12, 2025 Patient became tachycardic overnight (HR consistently in the 60s -> sustaining 105-130). Pressures then became a bit soft. H&H obtained, Hgb was 8.2. Based on trajectory, with a drop of roughly 5g/dl in 2 days, 1 unit pRBCs ordered for transfusion. In the interim, patient received 500cc bolus NS. 1 unit pRBCs transfused, additional unit on hold. AM labs pending. BP stabilized, HR improved, still running 90-100 bpm. Secondary IV site failed overnight. IV team tried multiple times but was unable to reestablish secondary peripheral access. With only one IV site, Protonix gtt changed to TID.
[2025-01-12 06:48] LABS: Hematocrit (blood only) 21.0 % (42.0-52.0); Hemoglobin 7.1 g/dl (14.0-18.0); Mean Corpuscular Hemoglobin 33.6 pg (25.0-34.0); Mean Corpuscular Volume 99.5 fL (80.0-100.0); Platelet Count 199 K/uL (130-400); RDW Standard Deviation 63.6 fL (36.4-46.3); Red Blood Count 2.11 M/uL (4.70-6.10); White Blood Count 11.90 K/ul (4.8-10.8)
[2025-01-12 06:55] LABS: Anion Gap 4.0 (3-11); Blood Urea Nitrogen 35.0 mg/dl (6-23); Calcium 7.6 mg/dl (8.6-10.3); Carbon Dioxide 24.0 mmol/L (21-32); Chloride 111.0 mmol/L (98-107); Creatinine Clr Calc Pharmacy 90.7 ml/min; Glucose 148.0 mg/dl (70-99(Fasting)); Potassium 4.3 mmol/L (3.5-5.1); Sodium 139.0 mmol/L (136-145)
[2025-01-12] MEDS ORDERED: ALTEPLASE, RECOMBINANT 1 MG/ML 2ML VIAL IV PRN (08:11)
[2025-01-12] MEDS ORDERED: SOD PHOSPHATE/SOD BIPHOSPHATE ENEMA 132 ML BTL PR STA (08:36)
[2025-01-12] MEDS: PANTOprazole 40 MG/10 ML SYR IV SCH (08:56)
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
--- NOTE | 2025-01-12 09:49 | Emergency Department Note ---
ED Visit Note The patient was a CODE BLUE in the inpatient room this morning. I responded to the CODE BLUE in usual fashion. The patient was receiving CPR. Airway is being managed with [id number]. The patient was intubated by myself in usual fashion. There was good color change. The patient had return of spontaneous circulation and the admitting team as well as the urogynaecologist are at the bedside. Care was returned to the admitting team Endotracheal Intubation Indication cardiac arrest. The patient was on 100% oxygen via NRB prior to the procedure. Suction, airway equipment, RSI drugs, respiratory equipment, and appropriate personnel were prepared prior to the initiation of the procedure. A time out was taken. The airway was easily visualized utilizing a classic Mac blade. A 7.5 size ETT tube was placed atraumatically to 26 cm using standard technique. The cuff inflated without signs of malfunction. There were bilateral breath sounds, positive colormetric change, no gastric sounds, a good capnography waveform, and post procedure pulse oximetry was 90%. There were no complications. Post intubation chest x-ray is pending. .
[2025-01-12] MEDS ORDERED: NOREPINEPHRINE/D5W 4 MG/250 ML IV ONE (09:53)
[2025-01-12] MEDS: NOREPINEPHRINE/D5W 4 MG/250 ML PLCT IV SCH (10:00)
[2025-01-12] MEDS: EPINEPHrine/NSS 4 MG/254 ML BAG IV SCH (10:00)
[2025-01-12] MEDS ORDERED: STAT IV Infusion **Titration per Protocol STA ×2 (10:00→10:08)
--- NOTE | 2025-01-12 10:01 | XRay Report ---
XR chest 1V portable CLINICAL HISTORY: POST INTUBATION COMPARISON STUDY: 01/08/2025 FINDINGS: There has been interval insertion of endotracheal tube which is positioned 1.6 cm above the iris. The heart is borderline enlarged. Left basilar opacities are likely atelectatic. There is no overt failure. There is no pneumothorax. IMPRESSION: Interval placement of an endotracheal tube 1.6 cm above the iris. ACT 112: Negative or not required by law. Electronically signed by: Luke Contreras M.D. 01/12/2025 10:00 AM
--- NOTE | 2025-01-12 10:25 | Communication Note ---
Discussed second cardiac arrest with ANNEL Lee and next of kin. Discussed extremely poor prognosis associated with second cardiac arrest, and concern it may cause additional suffering without significant mortality benefit. Artur states that he does not want his father to suffer or have a poor quality of life, which according to him he already has. He states he would prefer to not cause additional suffering and feels the patient would like to pass away naturally. Relayed to ICU and primary team. Date of Service: January 12, 2025
[2025-01-12 10:36] VITALS: PULSE 134; RESP 24; O2SAT 100
[2025-01-12] MEDS ORDERED: SODIUM BICARB 8.4% INJ 50 MEQ/50 ML SYR IV ONE ×2 (10:43)
[2025-01-12] MEDS ORDERED: SODIUM CHLORIDE 0.9% 10ML FLUSH IV ONE ×2 (10:43)
--- NOTE | 2025-01-12 10:58 | Procedure Note ---
Procedure Note Date of Service January 12, 2025 Procedure: Inserting ultrasound-guided central gas main and line fitter: Dr. Andra Matson Indication: Hypotension Consent: Emergent consent was applied Anesthesia: 1% lidocaine without epinephrine local. Procedure: Consent was verified and timeout performed. Appropriate imaging studies were reviewed prior to the procedure. Under aseptic and sterile condition, right IJ vein was accessed under direct ultrasound guidance. Guidewire was confirmed to be within the lumen of vein with the help of ultrasound. Catheter was introduced via Seldinger technique. Guide a wire was removed. Good non-pulsatile blood flow was appreciated from all the ports. The catheter was placed at 16 cm and sutured in place. BioPatch was applied to the catheter and a sterile Tegaderm dressing was applied over the catheter with careful attention to sterility. Lung sliding was appreciated post procedure with the help ultrasound. Chest x-ray to follow Patient tolerated the procedure well. Blood loss: Less than 2 cc Complications: None [facility] Procedure Codes (Charges) Tubes, Drains, and Vasc Access Procedure 1: Tubes, Drains, and Vasc Access: [id number] Ultrasound Guidance For Vascular Procedure 2: Tubes, Drains, and Vasc Access: [id number] Place catheter in vein superior or inferior vena cava Coding CPT Codes Tubes, Drains, and Vasc Access - Tubes, Drains, and Vasc Access: [id number] Ultrasound Guidance For Vascular ([id number]) Tubes, Drains, and Vasc Access - Tubes, Drains, and Vasc Access: [id number] Place catheter in vein superior or inferior vena cava ([id number]) Additional Codes Date of Service (PG.SURGERY)
--- NOTE | 2025-01-12 11:00 | Procedure Note ---
Procedure Note Date of Service January 12, 2025 ARTERIAL LINE PROCEDURE NOTE: Procedure: Arterial Line Placement Attending: Dr. Andra Matson MD Indication: Monitoring on Pressors Anesthesia: None Emergent consent was applied A time-out was completed verifying correct patient, procedure, site, positioning, and implant(s) or special equipment if applicable. Allens test was performed to ensure adequate perfusion. Patients right wrist was prepped and draped in the usual sterile fashion. Ultrasound guidance was used to aid needle placement. A 20g Arrow arterial line was introduced into the right radial artery. Catheter was threaded, and the needle was removed with appropriate pulsatile blood return. Good waveform was observed on the monitor. The patient tolerated the procedure well. Confirmation of placement with ultrasound. Images saved to medical record. Complications: None Blood Loss: Less than 1 cc [facility] Procedure Codes (Charges) Tubes, Drains, and Vasc Access Procedure 1: Tubes, Drains, and Vasc Access: [id number] Ultrasound Guidance For Vascular Procedure 2: Tubes, Drains, and Vasc Access: [id number] Arterial Cath/Cannulation Sampling/Monitoring/Transfusion Coding CPT Codes Tubes, Drains, and Vasc Access - Tubes, Drains, and Vasc Access: [id number] Ultrasound Guidance For Vascular ([id number]) Tubes, Drains, and Vasc Access - Tubes, Drains, and Vasc Access: [id number] Arterial Cath/Cannulation Sampling/Monitoring/Transfusion ([id number]) Additional Codes Date of Service (PG.SURGERY)
--- NOTE | 2025-01-12 11:01 | Communication Note ---
Date of Service: January 12, 2025 Patient had been planned for EGD and colonoscopy for today. He had isabell willson called on him this morning. He had ROSC but ultimately had poor prognosis and he was made DNR after discussion with family. Family had decided that the patient would want to pass naturally.
--- NOTE | 2025-01-12 11:02 | Procedure Note ---
Procedure Note Date of Service January 12, 2025 Critical care addendum: Patient was on 0.1 of Levophed and 0.08 of epinephrine. He started to bradycardia down and went into PEA. CODE LINO was called around 10:18 AM. Patient was given 2 rounds of epi and 2 A of bicarb. ROSC was achieved at 10:[address] Becker was on the phone with the family. They decided not to escalate the care and no more CPR moving forward. Patient was continued on epi and Levophed with no escalation of care. Unfortunately patient again started to bradycardia down around 10:42 AM. Patient at 10:44 AM. Primary team were informed regarding the same. They are going to reach out to the patient's family Please note the above document was generated using voice recognition software. It may contain grammatical, syntax or spelling errors.Any formal questions or concerns about the content, text or information contained within the body of this dictation should be directly addressed to the provider for clarification. [facility] Procedure Codes (Charges) Resuscitation Resuscitation: 97323 Heart/lung resuscitation CPR Coding CPT Codes Resuscitation - Resuscitation: 93972 Heart/lung resuscitation CPR ([id number]) Additional Codes Date of Service (PG.SURGERY)
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
[2025-01-12] MEDS: fentaNYL citrate 2,500 MCG/250 ML BAG IV ONE (12:15)
== END 2025-01-12 10:44 | disposition expired | DRG 602 ==
LOC: ED 14:53 → SUATTDRO 17:53 → EDINP 17:53 → 2W 19:51 → 4W 01-11 11:27 → 1E 01-12 09:50